=== PATIENT | male | born 1970 | race Caucasian/White ===

== ENCOUNTER 2018-06-23 13:08 | Emergency (ER) | payer MEDICAID ==
[2018-06-23 13:30] VITALS: BP 162/124
--- NOTE | 2018-06-23 14:06 | EDM.PDOC ---
ED HPI GENERAL MEDICAL PROBLEM - General Chief Complaint: Cardiovascular Problem Stated Complaint: HIGH BP Time Seen by Provider: 06/23/18 13:20 Source of Information: Reports: Patient, RN Notes Reviewed History Limitations: Reports: No Limitations - History of Present Illness INITIAL COMMENTS - FREE TEXT/NARRATIVE: Patient is a 47-year-old male who presents to the ED today for the evaluation of elevated blood pressure. He states this is a chronic issue for him and has been going on for around 2 years now. He states he does not necessarily have a primary care doc is being seen and taken care of by providers in the [facility]. He states he was evaluated there yesterday for a wheeze and cough and was told he had bronchitis so they gave him an albuterol inhaler and a prescription for doxycycline as they thought maybe he had bronchitis. His blood pressure at the clinic was 161/115 yesterday. At time of triage is 162/ 124. He states that he normally feels better with a slightly elevated blood pressure however he notes that the diastolic is normally around the low 100s nothing usually over 110. This makes him feel the best without any fatigue. He takes metoprolol tartrate 25 mg twice a day for blood pressure. He states that he had been taking topiramate 50 mg twice a day for headaches, but has stopped taking these due to the rebound headaches that he gets from this medication. He states that his blood pressures at home have been in the 140 over 100s. He does take his blood pressure at home with an automated cuff. He states that his headache is mainly in his temples and then radiates to the back of his head. He did not take any medications for this headache as he was told to not take any [id number] medications by the providers in the [facility]. He also notes a history of strokes one at age 29, age 38, and age 46 with multiple neuro deficits related to these including blurred vision/double vision, left-sided versus right sided deficits. He states that he is a 5-6 cigarette smoker per day for multiple years. He states that he has had a cough with no sputum production, shortness of breath, headache, and elevated blood pressure but denies any chest pain, nausea/vomiting/diarrhea, worsening vision changes. He also states that he has had increased stress at home as he lives with his daughter and her boyfriend and the situation is stressful for him. Headache Pain Score (Numeric/FACES): 6 - Related Data Allergies Allergy/AdvReac Type Severity Reaction Status Date / Time Penicillins Allergy Rash Verified 12/21/15 14:17 Home Meds: Home Meds Albuterol Sulfate [Albuterol Sulfate Hfa] 8.5 gm IH Q4H PRN 06/23/18 [History] Amitriptyline [Elavil] 10 mg PO BEDTIME #30 tab 06/23/18 [Rx] Doxycycline [Vibramycin] 100 mg PO BID 06/23/18 [History] Metoprolol Tartrate 25 mg PO BID 06/23/18 [History] Simvastatin [Zocor] 40 mg PO BEDTIME 06/23/18 [History] hydroCHLOROthiazide [Hydrochlorothiazide] 25 mg PO DAILY #30 tab 06/23/18 [Rx] Past Medical History HEENT History: Reports: Allergic Rhinitis Other HEENT History: 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 Cardiovascular History: Reports: High Cholesterol, Hypertension Respiratory History: Reports: Sleep Apnea Gastrointestinal History: Reports: Hiatal Hernia Other Gastrointestinal History: currently has umbilical hernia. Neurological History: Reports: CVA Other Neuro History: x4 concussion, 2 strokes Hematologic History: Reports: Bleeding Disorder - Infectious Disease History Infectious Disease History: Reports: Chicken Pox - Past Surgical History GI Surgical History: Reports: Hernia, Inguinal Male Surgical History: Reports: Vasectomy Dermatological Surgical History: Reports: None Social & Family History - Tobacco Use Smoking Status *Q: Current Every Day Smoker Years of Tobacco use: 22 Packs/Tins Daily: 1 - Caffeine Use Caffeine Use: Reports: Coffee - Recreational Drug Use Recreational Drug Use: Yes Drug Use in Last 12 Months: Yes Recreational Drug Type: Reports: Marijuana/Hashish Recreational Drug Use Frequency: Daily ED ROS GENERAL - Review of Systems Review Of Systems: See Below Constitutional: Denies: Fever, Chills HEENT: Reports: No Symptoms Respiratory: Reports: Shortness of Breath, Cough Cardiovascular: Reports: Blood Pressure Problem. Denies: Chest Pain, Edema, Lightheadedness Endocrine: Reports: No Symptoms GI/Abdominal: Reports: No Symptoms : Reports: No Symptoms Musculoskeletal: Reports: No Symptoms Skin: Reports: No Symptoms Neurological: Reports: No Symptoms Psychiatric: Reports: No Symptoms Hematologic/Lymphatic: Reports: No Symptoms Immunologic: Reports: No Symptoms ED EXAM, GENERAL - Physical Exam Exam: See Below Exam Limited By: No Limitations General Appearance: Alert, WD/WN, No Apparent Distress Eye Exam: Bilateral Eye: EOMI, Normal Inspection, PERRL Ears: Normal External Exam Nose: Normal Inspection, Normal Mucosa, No Blood Throat/Mouth: Normal Inspection, Normal Lips, Normal Teeth, Normal Oropharynx, Normal Voice, No Airway Compromise Head: Atraumatic, Normocephalic Neck: Normal Inspection Respiratory/Chest: No Respiratory Distress, Lungs Clear, Normal Breath Sounds, No Accessory Muscle Use, Chest Non-Tender Cardiovascular: Normal Peripheral Pulses, Regular Rate, Rhythm, No Edema, No Murmur GI/Abdominal: Normal Bowel Sounds, Soft, Non-Tender, No Distention Back Exam: Normal Inspection, Full Range of Motion Extremities: Normal Inspection, Normal Range of Motion, Non-Tender, No Pedal Edema, Normal Capillary Refill Neurological: Alert, Oriented, Normal Cognition, No Motor/Sensory Deficits Psychiatric: Normal Affect, Normal Mood, Anxious Skin Exam: Warm, Dry, Intact, Normal Color, No Rash Course - Vital Signs Last Recorded V/S: Last Vital Signs Temp 98 F 06/23/18 13:23 Pulse 82 06/23/18 13:23 Resp 18 06/23/18 13:23 BP 162/124 H 06/23/18 13:23 Pulse Ox 100 06/23/18 13:23 - Orders/Labs/Meds Meds: Medications Discontinued Medications Generic Name Dose Route Start Last Admin Trade Name Jessica PRN Reason Stop Dose Admin Lorazepam 0.5 mg 06/23/18 14:07 06/23/18 14:37 Ativan PO 06/23/18 14:08 0.5 mg ONETIME ONE Administration - Re-Assessments/Exams Free Text/Narrative Re-Assessment/Exam: 06/23/18 14:22 Patient presents to the ED for elevated blood pressure. It is apparent that he is somewhat anxious at time of exam. His blood pressure was in the 150s systolically but when he was interviewed his blood pressure went up to the 180s systolically. I did order 0.5 mg Ativan to see if this doesn't help calm his nerves. In interviewing him he has not having any acute symptoms related to increased blood pressure however I feel that his increased blood pressure is related to the headaches that he has been having. I will suggest that he take his metoprolol tartrate 25 mg by mouth in the morning and 37.5 mg by mouth at night, however I feel he would benefit from a switch to metoprolol succinate as this is longer acting and that he should take this 25 mg twice a day. I will suggest that he stop taking the Topamax as this seems to provide him with more rebound headaches and it does provide him benefit from headache relief. We'll recommend that he try amitriptyline 10 mg at night for headache prophylaxis. Will also recommend that he stop taking the doxycycline as it is not needed for bronchitis. If he wishes to stay on the metoprolol tartrate I will recommend that he takes 25 mg hydrochlorothiazide by mouth once daily in combination with this. Departure - Departure Time of Disposition: 15:20 Disposition: Home, Self-Care 01 Condition: Fair Clinical Impression: High blood pressure Qualifiers: Hypertension type: essential hypertension Qualified Code(s): I10 - Essential ( primary) hypertension Prescriptions: Amitriptyline [Elavil] 10 mg PO BEDTIME #30 tab hydroCHLOROthiazide [Hydrochlorothiazide] 25 mg PO DAILY #30 tab Instructions: How to Take Your Blood Pressure, [id number], Preventing Hypertension Referrals: PCP,None [Primary Care Provider] - Forms: ED Department Discharge Additional Instructions: You have been evaluated in the ED today for your high blood pressure. Please stop taking the Topamax as this is likely causing rebound headaches for you. Please take your metoprolol tartrate one tablet in the morning and 1-1/2 tablets at night. This is a dosage change in your current medication. Please take one tab hydrochlorothiazide in the morning, this is an added blood pressure medication. If you feel this drops your blood pressure too low you may take one half tablet versus one whole tablet. Please give this 3-5 days so that your body may adjust to this. Please take one tablet (10mg) amitriptyline at bedtime. This is for migraine prophylaxis and should help promote better sleep for you. These medications have been sent to [facility] as per your request. Please return to the ER if your symptoms change or worsen.
[2018-06-23] MEDS ORDERED: LORazepam 0.5 MG Tab PO ONE (14:07)
== END 2018-06-23 16:02 | disposition home or self-care (01) ==
LOC: JD.ED 13:08
DX: I10 Essential (primary) hypertension (principal); E78.00 Pure hypercholesterolemia, unspecified; Z86.73 Personal history of transient ischemic attack (TIA), and cerebral infarction without residual deficits; Z79.899 Other long term (current) drug therapy; Z88.0 Allergy status to penicillin
CPT/HCPCS: 99283; A9270

== ENCOUNTER → 2018-11-26 | Day surgery (SDC) | payer MEDICAID ==
[~2018-11-26] MED LIST: Acetaminophen/HYDROcodone 325-5 MG Tab PO SCH; Albuterol 0.083% 2.5 MG/3 ML Neb Soln NEB PRN; Bupivacaine 0.25% 10 ML SDV ONE; Dexamethasone 4 MG/ML 5 ML MDV ONE; EPINEPHrine 1 MG/ML 30 ML MDV ONE; HYDROmorphone 0.5 MG/0.5 ML Syringe IVPUSH PRN; HYDROmorphone 0.5 MG/0.5 ML Syringe ONE; Ketorolac 30 MG/ML SDV ONE; Lactated Ringers 1,000 ML IV SCH; Lactated Ringers 1,000 ML ONE; Lidocaine 1% 6 ML ONE; Lidocaine 1%/Sod Bicarbonate in NS 8.4% 1 ML Syringe IDERM PRN; Midazolam 1 MG/ML 2 ML SDV ONE; Ondansetron 4 MG/2 ML SDV IVPUSH PRN; Ondansetron 4 MG/2 ML SDV ONE; Phenylephrine 1 MG in Sodium Chloride 0.9% 10 ML IV SCH; Phenylephrine/Normal Saline 100 MCG/ML 10 ML Syringe ONE; Propofol 200 MG/20 ML SDV ONE; Sodium Chloride 0.9% 10 ML Syringe FLUSH PRN; ceFAZolin 1 GM Vial ONE; diphenhydrAMINE 50 MG/ML SDV IVPUSH PRN; ePHEDrine 50 MG/ML SDV IVPUSH PRN; ePHEDrine/Normal Saline 25 MG/5 ML Syringe ONE; fentaNYL 100 MCG/2 ML SDV IVPUSH PRN; fentaNYL 250 MCG/5 ML SDV ONE
--- NOTE | 2018-11-26 08:03 | PCM.PREANE ---
Preanesthetic Assessment - Anesthesia/Transfusion/Family Hx Anesthesia History: Prior Anesthesia Without Reaction Family History of Anesthesia Reaction: No Transfusion History: No Prior Transfusion(s) Intubation History: Unknown - Review of Systems General: No Symptoms Pulmonary: No Symptoms (Smoker:1/2 PPD times 30 years/ marijuana inhaled BID, history of ETOH abuse, AJ, panlobular emphysema) Cardiovascular: No Symptoms (HTN, History of PFO-repaired in 2001), Palpitations Gastrointestinal: No Symptoms (GERD) Neurological: No Symptoms (Stroke/TIA: 2000, 2009: residual weakness in bilateral extremities, balance disorder, sensorineural hearing loss bilaterally , vision/memory loss), Dizziness, Headache (migraines), Numbness (right side on occasion) Other: Reports: Depression, Anxiety - Physical Assessment NPO Status Date: 11/25/18 NPO Status Time: 23:00 Height: 1.8 m Weight: 87 kg ASA Class: 3 Mental Status: Alert & Oriented x3 Airway Class: Mallampati = 2 Dentition: Reports: Normal Dentition, Caries Thyro-Mental Finger Breadths: 3 Mouth Opening Finger Breadths: 3 ROM/Head Extension: Full Lungs: Clear to Auscultation, Normal Respiratory Effort Cardiovascular: Regular Rate, Regular Rhythm, No Murmurs - Lab Values: Laboratory Last Values MRSA (PCR) Negative 11/17/18 16:33 - Imaging/EKG Impressions: EKG: SR= rate=60 - Allergies Allergies/Adverse Reactions: Allergies Allergy/AdvReac Type Severity Reaction Status Date / Time Penicillins Allergy Rash Verified 11/25/18 13:14 - Anesthesia Plan Pre-Op Medication Ordered: Beta Pura Beta Pura: Metoprolol Med Last Dose Date: 11/26/18 Med Last Dose Time: 08:00 - Acknowledgements Anesthesia Type Planned: General Anesthesia Pt an Appropriate Candidate for the Planned Anesthesia: Yes Alternatives and Risks of Anesthesia Discussed w Pt/Guardian: Yes Pt/Guardian Understands and Agrees with Anesthesia Plan: Yes PreAnesthesia Questionnaire HEENT History: Reports: Allergic Rhinitis, Hard of Hearing Other HEENT History: 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, tinnitis, wears glasses Cardiovascular History: Reports: High Cholesterol, Hypertension Respiratory History: Reports: Sleep Apnea Other Respiratory History: panlobular emphysema Gastrointestinal History: Reports: Hiatal Hernia Other Gastrointestinal History: currently has umbilical hernia. Genitourinary History: Reports: None BRASS BUFFER History: Reports: None Other Musculoskeletal History: right knee pain Neurological History: Reports: CVA Other Neuro History: x4 concussion, 2 strokes Psychiatric History: Reports: None Endocrine/Metabolic History: Reports: None Hematologic History: Reports: Bleeding Disorder Immunologic History: Reports: None Oncologic (Cancer) History: Reports: None Dermatologic History: Reports: None - Infectious Disease History Infectious Disease History: Reports: Chicken Pox - Past Surgical History Head Surgeries/Procedures: Reports: None HEENT Surgical History: Reports: None Cardiovascular Surgical History: Reports: Other (See Below) Other Cardiovascular Surgeries/Procedures: foramen ovale surgical repair Respiratory Surgical History: Reports: None GI Surgical History: Reports: Hernia, Inguinal Female Surgical History: Reports: None Male Surgical History: Reports: Vasectomy Endocrine Surgical History: Reports: None Neurological Surgical History: Reports: None Oncologic Surgical History: Reports: None Dermatological Surgical History: Reports: None - SUBSTANCE USE Smoking Status *Q: Current Every Day Smoker Recreational Drug Use History: Yes Recreational Drug Type: Reports: Marijuana/Hashish - HOME MEDS Home Medications: Home Meds Amitriptyline [Elavil] 10 mg PO BEDTIME #30 tab 06/23/18 [Rx] Metoprolol Tartrate 25 mg PO QAM 06/23/18 [History] Simvastatin [Zocor] 40 mg PO BEDTIME 06/23/18 [History] hydroCHLOROthiazide [Hydrochlorothiazide] 25 mg PO DAILY #30 tab 06/23/18 [Rx] Metoprolol Tartrate 50 mg PO QPM 11/25/18 [History] Acetaminophen/HYDROcodone [[place] 325-5 MG] 1 - 2 tab PO Q6H PRN #20 tablet 11/26 [Rx] Aspirin 325 mg PO BID #84 tab 11/26/18 [Rx] - CURRENT (IN HOUSE) MEDS Current Meds: Current Medications Lactated Ringer's (Ringers, Lactated) 1,000 mls @ 125 mls/hr IV ASDIRECTED MICHAELA Lidocaine/Sodium Bicarbonate (Buffered Lidocaine 1% In Ns 8.4%) 0.25 ml IDERM ONETIME PRN PRN Reason: Prior to IV Start Sodium Chloride (Saline Flush) 10 ml FLUSH ASDIRECTED PRN PRN Reason: Keep Vein Open Discontinued Medications Cefazolin Sodium (Ancef) Confirm Administered Dose 2 gm .ROUTE .STK-MED ONE Stop: 11/26/18 07:34 Dexamethasone (Dexamethasone) Confirm Administered Dose 20 mg .ROUTE .STK-MED ONE Stop: 11/26/18 07:34 Fentanyl (Sublimaze) Confirm Administered Dose 250 mcg .ROUTE .STK-MED ONE Stop: 11/26/18 07:35 Hydromorphone HCl (Dilaudid) Confirm Administered Dose 0.5 mg .ROUTE .STK-MED ONE Stop: 11/26/18 07:34 Lidocaine HCl (Xylocaine-Mpf 1%) Confirm Administered Dose 6 mls @ as directed .ROUTE .STK-MED ONE Stop: 11/26/18 07:34 Lactated Ringer's (Ringers, Lactated) Confirm Administered Dose 1,000 mls @ as directed .ROUTE .STK-MED ONE Stop: 11/26/18 07:34 Ketorolac Tromethamine (Toradol) Confirm Administered Dose 30 mg .ROUTE .STK- MED ONE Stop: 11/26/18 07:34 Midazolam HCl (Versed 1 Mg/Ml) Confirm Administered Dose 2 mg .ROUTE .STK-MED ONE Stop: 11/26/18 07:35 Ondansetron HCl (Zofran) Confirm Administered Dose 4 mg .ROUTE .STK-MED ONE Stop: 11/26/18 07:34 Propofol (Diprivan 20 Ml) Confirm Administered Dose 200 mg .ROUTE .STK-MED ONE Stop: 11/26/18 07:34
--- NOTE | 2018-11-26 13:44 | PCM.POSTAN ---
POST ANESTHESIA ASSESSMENT - MENTAL STATUS Mental Status: Alert - VITAL SIGNS Vital Signs: Last Vital Signs Temp 97.8f 11/26/18 13:35 Pulse 77 11/26/18 13:35 Resp 23 11/26/18 13:35 BP 110/83 11/26/18 13:35 Pulse Ox 100 11/26/18 13:35 - RESPIRATORY Respiratory Status: Respiratory Rate WNL, Airway Patent, O2 Saturation Stable, Supplemental Oxygen - CARDIOVASCULAR CV Status: Pulse Rate WNL, Blood Pressure Stable - GASTROINTESTINAL GI Status: No Symptoms - POST OP HYDRATION Hydration Status: Adequate & Stable
--- NOTE | 2018-11-26 15:00 | PCM48HPAN ---
Post Anesthesia Note - EVALUATION WITHIN 48HRS OF ANESTHETIC Vital Signs in Normal Range: Yes Patient Participated in Evaluation: Yes Respiratory Function Stable: Yes Airway Patent: Yes Cardiovascular Function Stable: Yes Hydration Status Stable: Yes Pain Control Satisfactory: Yes Nausea and Vomiting Control Satisfactory: Yes Mental Status Recovered: Yes Vital Signs: Last Vital Signs Temp 36.4 C 11/26/18 14:25 Pulse 85 11/26/18 14:25 Resp 16 11/26/18 14:25 BP 104/85 11/26/18 14:25 Pulse Ox 100 11/26/18 14:25
[2018-11-26 15:26] VITALS: BP 131/105
--- NOTE | 2018-12-01 09:17 | PCM.OPNOTE ---
- General Post-Op/Procedure Note Date of Surgery/Procedure: 11/26/18 Operative Procedure(s): right knee video arthrscopy with plica and fat pad resection with chondroplasty of the trochlea Pre Op Diagnosis: right knee pain with possible medial meniscus tear versus chondromalacia Post-Op Diagnosis: right knee fat pad impingement with plica and grade 2 chondromalacia of the trochlea Anesthesia Technique: General LMA, Local Primary Surgeon: Piero Gallegos Anesthesia Provider: Elenita Davidson Remote Sensing Specialist: Betty Gomez in mLs: 5 Complications: None Condition: Good
--- NOTE | 2018-12-01 09:47 | OR ---
DATE OF OPERATION: 11/26/2018 SURGEON: Piero Gallegos MD OPERATION PERFORMED: Right knee video arthroscopy with plica and fat pad resection with chondroplasty of the trochlea. PREOPERATIVE DIAGNOSIS: Right knee pain with possible medial meniscus tear versus chondromalacia. POSTOPERATIVE DIAGNOSIS: Right knee fat pad impingement with plica and grade 2 chondromalacia of the trochlea. ANESTHESIA: General LMA with local. ANESTHESIA PROVIDER: Elenita Davidson CRNA. KITCHEN HELP HANDYMAN: Betty Gomez PA-C. ESTIMATED BLOOD LOSS: Less than 5 mL. COMPLICATIONS: None. CONDITION: Stable. DESCRIPTION OF PROCEDURE: The patient was identified in the preoperative holding area. Proper site was marked and identified by surgeon. The patient was taken back to the operating theater where after adequate anesthesia, the patient's left lower extremity was placed in a well leg james. Right lower extremity was placed in a nonsterile tourniquet and a C-clamp james. Foot of the bed was then lowered. Right lower extremity was then sterilely prepped and draped in the usual sterile fashion. OR time-out was performed. The patient received 2 g of IV Ancef. Right lower extremity was exsanguinated. Tourniquet was insufflated to 250 mmHg. Standard anterior lateral portal incision was made and scope trocar was introduced to the knee. At this time, the patella showed no chondromalacia. The trochlea did show a small area of grade 2 chondromalacia with fraying. The fat pad was noted to be significantly hypertrophied with significant erythema. Attention was turned to medial compartment. Anteromedial portal was created with the use of a spinal needle. Medial compartment showed no signs of chondromalacia. There was no medial meniscus tear or any signs of erythema. The ACL was intact in the notch. Lateral compartment showed no signs of chondromalacia or lateral meniscus tear. At this time, a chondroplasty of the loose fragments in the trochlea were then undertaken back to a smooth border and then fat pad resection was done so that it would not impinge between the patella and the femoral trochlea. Once this was undertaken, excess saline was drained from the knee. 3- 0 nylon was used for closure of the skin. The patient had 0.25% Marcaine injected locally and then had a sterile soft dressing applied. MMODAL /[id number]
== END | disposition home or self-care (01) ==
LOC: JD.SDS 09:23
PROVIDERS: ATTEND Orthopaedic Surgery
DX: M25.861 Other specified joint disorders, right knee (principal); M94.261 Chondromalacia, right knee; M67.51 Plica syndrome, right knee; I11.9 Hypertensive heart disease without heart failure; E78.00 Pure hypercholesterolemia, unspecified; J43.1 Panlobular emphysema; F17.210 Nicotine dependence, cigarettes, uncomplicated; G47.33 Obstructive sleep apnea (adult) (pediatric); G45.0 Vertebro-basilar artery syndrome; Z88.0 Allergy status to penicillin; Z79.82 Long term (current) use of aspirin; Z79.899 Other long term (current) drug therapy
CPT/HCPCS: 29875; 36415; 80053; 87641; A9270; J0171; J0690; J1100; J1170; J2001; J2250; J2370; J2405; J2704; J3010; J3490; J7050; J7120; 01400; J1885

== ENCOUNTER → 2019-01-28 | Day surgery (SDC) | payer MEDICAID ==
[~2019-01-28] MED LIST changes: +Acetaminophen/HYDROcodone 325-5 MG Tab PO PRN; -Acetaminophen/HYDROcodone 325-5 MG Tab PO SCH; -Albuterol 0.083% 2.5 MG/3 ML Neb Soln NEB PRN; -EPINEPHrine 1 MG/ML 30 ML MDV ONE; +EPINEPHrine 1 MG/ML 30 ML MDV SCH; -Ketorolac 30 MG/ML SDV ONE; -Phenylephrine 1 MG in Sodium Chloride 0.9% 10 ML IV SCH; -Phenylephrine/Normal Saline 100 MCG/ML 10 ML Syringe ONE; -ePHEDrine 50 MG/ML SDV IVPUSH PRN; +fentaNYL 100 MCG/2 ML SDV ONE; -fentaNYL 250 MCG/5 ML SDV ONE
--- NOTE | 2019-01-28 07:11 | PCM.PREANE ---
Preanesthetic Assessment - Procedure Proposed Procedure: fleft knee videa arthroscopy, partial medical meniscetomy with possible chondroplasty - Anesthesia/Transfusion/Family Hx Anesthesia History: No Prior Anesthesia Family History of Anesthesia Reaction: No Transfusion History: No Prior Transfusion(s) Type of Transfusion Reactions: Reports: Unknown Intubation History: Unknown - Review of Systems General: No Symptoms Pulmonary: No Symptoms Cardiovascular: No Symptoms Gastrointestinal: No Symptoms Neurological: Headache (chronic headaches ), Other (weakness bilaterally from history of strokes may 25) Other: Reports: None - Physical Assessment NPO Status Date: 01/28/19 NPO Status Time: 22:00 Height: 1.83 m Weight: 88 kg ASA Class: 3 Mental Status: Alert & Oriented x3 Thyro-Mental Finger Breadths: 3 Mouth Opening Finger Breadths: 4 ROM/Head Extension: Full Lungs: Clear to Auscultation, Normal Respiratory Effort Cardiovascular: Regular Rate, Regular Rhythm - Lab Values: Laboratory Last Values MRSA (PCR) Negative 01/27/19 15:20 - Allergies Allergies/Adverse Reactions: Allergies Allergy/AdvReac Type Severity Reaction Status Date / Time Penicillins Allergy Rash Verified 11/26/18 10:06 NSAIDS (Non-Steroidal AdvReac Headache Verified 01/27/19 08:55 Anti-Inflamma - Blood Blood Available: No - Anesthesia Plan Beta Pura: Metoprolol Med Last Dose Date: 01/28/19 Med Last Dose Time: 05:20 - Acknowledgements Anesthesia Type Planned: General Anesthesia Pt an Appropriate Candidate for the Planned Anesthesia: Yes Alternatives and Risks of Anesthesia Discussed w Pt/Guardian: Yes Pt/Guardian Understands and Agrees with Anesthesia Plan: Yes PreAnesthesia Questionnaire HEENT History: Reports: Allergic Rhinitis, Hard of Hearing Other HEENT History: 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, tinnitis, wears glasses Cardiovascular History: Reports: High Cholesterol, Hypertension Other Cardiovascular History: repair of hole in heart, heart disease Respiratory History: Reports: Sleep Apnea Other Respiratory History: patient is a smoker. denies cough or sob. Gastrointestinal History: Reports: Hiatal Hernia Other Gastrointestinal History: currently has umbilical hernia. Genitourinary History: Reports: None ADMINISTRATIVE ASSISTANT FRONT DESK History: Reports: None Musculoskeletal History: Reports: Arthritis Other Musculoskeletal History: 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 Neurological History: Reports: CVA, Headaches, Chronic Other Neuro History: cva x 3 with bilateral weakness Psychiatric History: Reports: None Endocrine/Metabolic History: Reports: None Hematologic History: Reports: Other (See Below) (on baby aspirin) Immunologic History: Reports: None Oncologic (Cancer) History: Reports: None Dermatologic History: Reports: None - Infectious Disease History Infectious Disease History: Reports: Chicken Pox - Past Surgical History Musculoskeletal Surgical History: Reports: Arthroscopic Procedure - SUBSTANCE USE Smoking Status *Q: Current Every Day Smoker Tobacco Use Within Last Twelve Months: Cigarettes Days Per Week of Alcohol Use: 7 Recreational Drug Type: Reports: Other (see below) (smokes [employer] - last yesterday morning) - HOME MEDS Home Medications: Home Meds Amitriptyline [Elavil] 10 mg PO BEDTIME #30 tab 06/23/18 [Rx] Metoprolol Tartrate 25 mg PO QAM 06/23/18 [History] Simvastatin [Zocor] 40 mg PO BEDTIME 06/23/18 [History] hydroCHLOROthiazide [Hydrochlorothiazide] 25 mg PO DAILY #30 tab 06/23/18 [Rx] Metoprolol Tartrate 50 mg PO QPM 11/25/18 [History] Acetaminophen/HYDROcodone [[place] 325-5 MG] 1 - 2 tab PO Q6H PRN #20 tablet 01/28 [Rx] Aspirin 325 mg PO BID #84 tab 01/28/19 [Rx] - CURRENT (IN HOUSE) MEDS Current Meds: Current Medications Epinephrine HCl (Adrenalin) 3 mg .XX ONETIME MICHAELA Stop: 01/28/19 12:00 Lactated Ringer's (Ringers, Lactated) 1,000 mls @ 125 mls/hr IV ASDIRECTED MICHAELA Stop: 01/28/19 23:00 Lidocaine/Sodium Bicarbonate (Buffered Lidocaine 1% In Ns 8.4%) 0.25 ml IDERM ONETIME PRN PRN Reason: Prior to IV Start Stop: 01/28/19 18:00 Sodium Chloride (Saline Flush) 10 ml FLUSH ASDIRECTED PRN PRN Reason: Keep Vein Open Stop: 01/28/19 18:00 Discontinued Medications Bupivacaine HCl (Sensorcaine-Mpf 0.25%) Confirm Administered Dose 30 ml .ROUTE .STK-MED ONE Stop: 01/28/19 06:57 Fentanyl (Sublimaze) Confirm Administered Dose 100 mcg .ROUTE .STK-MED ONE Stop: 01/28/19 06:58 Lidocaine HCl (Xylocaine-Mpf 1%) Confirm Administered Dose 6 mls @ as directed .ROUTE .STK-MED ONE Stop: 01/28/19 06:58 Midazolam HCl (Versed 1 Mg/Ml) Confirm Administered Dose 2 mg .ROUTE .STK-MED ONE Stop: 01/28/19 06:58 Ondansetron HCl (Zofran) Confirm Administered Dose 4 mg .ROUTE .STK-MED ONE Stop: 01/28/19 06:58 Propofol (Diprivan 20 Ml) Confirm Administered Dose 200 mg .ROUTE .STK-MED ONE Stop: 01/28/19 06:57
--- NOTE | 2019-01-28 08:28 | PCM.POSTAN ---
POST ANESTHESIA ASSESSMENT - MENTAL STATUS Mental Status: Other (drowsy ) - VITAL SIGNS Vital Signs: Last Vital Signs Temp 36.5 C 01/28/19 07:00 Pulse 75 01/28/19 07:00 Resp 16 01/28/19 07:00 BP 131/98 H 01/28/19 07:00 Pulse Ox 97 01/28/19 07:00 - RESPIRATORY Respiratory Status: Respiratory Rate WNL, Airway Patent, O2 Saturation Stable, Supplemental Oxygen - CARDIOVASCULAR CV Status: Pulse Rate WNL, Blood Pressure Stable - GASTROINTESTINAL GI Status: No Symptoms - PAIN Pain Score: 0 - POST OP HYDRATION Hydration Status: Adequate & Stable
--- NOTE | 2019-01-28 09:05 | PCM48HPAN ---
Post Anesthesia Note - EVALUATION WITHIN 48HRS OF ANESTHETIC Vital Signs in Normal Range: Yes Patient Participated in Evaluation: Yes Respiratory Function Stable: Yes Airway Patent: Yes Cardiovascular Function Stable: Yes Hydration Status Stable: Yes Pain Control Satisfactory: Yes Nausea and Vomiting Control Satisfactory: Yes Mental Status Recovered: Yes Vital Signs: Last Vital Signs Temp 97.7 F 01/28/19 08:45 Pulse 74 01/28/19 08:45 Resp 15 01/28/19 08:45 BP 114/87 01/28/19 08:45 Pulse Ox 96 01/28/19 08:45
[2019-01-28 09:06] VITALS: BP 123/97; PULSE 70
--- NOTE | 2019-02-02 16:15 | PCM.OPNOTE ---
- General Post-Op/Procedure Note Date of Surgery/Procedure: 01/28/19 Operative Procedure(s): left knee video arthroscopy with partial medial meniscecotmy Pre Op Diagnosis: left knee medial meniscus tear Post-Op Diagnosis: same with chondromalacia Anesthesia Technique: General LMA, Local Primary Surgeon: Piero Gallegos Anesthesia Provider: Faye Boudreaux Horse Doctor: Betty Gomez in mLs: 5 Complications: None Condition: Good
--- NOTE | 2019-02-02 17:16 | OR ---
DATE OF OPERATION: 01/28/2019 SURGEON: Piero Gallegos MD OPERATION PERFORMED: Left knee video arthroscopy with partial medial meniscectomy. PREOPERATIVE DIAGNOSIS: Left knee medial meniscus tear. POSTOPERATIVE DIAGNOSIS: Left knee medial meniscus tear with chondromalacia. ANESTHESIA: General LMA with local. ANESTHESIA PROVIDER: Faye Boudreaux. PRINT ROOM WORKER: Betty Gomez PA-C ESTIMATED BLOOD LOSS: Less than 5 mL. COMPLICATIONS: None. CONDITION: Stable. DESCRIPTION OF PROCEDURE: The patient was identified in the preop holding area. Proper site was marked and identified by the surgeon. The patient was taken back to the operating theater where after adequate anesthesia the patient's left lower extremity had a nonsterile tourniquet applied and was placed in a C-clamp james. Right lower extremity was placed in a well-leg james. Foot of the bed was then lowered. Left lower extremity was then sterilely prepped and draped in the usual sterile fashion. OR time-out was performed. The patient received 2 g IV Ancef. The left lower extremity was exsanguinated. Tourniquet was insufflated to 250 mmHg. Standard anterolateral portal incision was made and the scope trocar was introduced. The patient was noted to have slight chondromalacia noted at the patellofemoral joint. No loose or foreign bodies in the medial and lateral gutter. The patient did have some significant overgrowth of the medial synovium as well as a small plica. Attention was turned to the medial compartment. Anteromedial portal was created and the probe was introduced. The patient was noted to have a posterior 3rd medial meniscus tear. At this time, a partial medial meniscectomy was performed back to a stable rim taking roughly only 10% to 15% of the posterior horn of the meniscus. At this time, it was found to be stable with the remaining portion. ACL was intact in the notch. The patient only had grade 1 chondromalacia of the medial compartment. Lateral compartment showed no lateral meniscus tear, no compartmental changes. At this time, a partial synovectomy of the medial fat pad as well as plica was done. Excess saline was drained from the knee. A 3-0 nylon suture was used for closure of the skin. The patient had a sterile soft dressing applied and was sent to PACU in stable condition. MMODAL /[id number]
== END | disposition home or self-care (01) ==
LOC: JD.SDS 06:47
PROVIDERS: ATTEND Orthopaedic Surgery
DX: S83.242A Other tear of medial meniscus, current injury, left knee, initial encounter (principal); M22.42 Chondromalacia patellae, left knee; M19.90 Unspecified osteoarthritis, unspecified site; I10 Essential (primary) hypertension; F17.210 Nicotine dependence, cigarettes, uncomplicated; Z79.899 Other long term (current) drug therapy; Z79.82 Long term (current) use of aspirin; Z88.0 Allergy status to penicillin; Z88.6 Allergy status to analgesic agent
CPT/HCPCS: 29881; 87641; A9270; J0171; J0690; J1100; J1170; J2001; J2250; J2405; J2704; J3010; J3490; J7050; J7120; 01400

== ENCOUNTER 2020-02-21 09:49 | Day surgery (SDC) | payer MEDICARE, MEDICAID ==
[~2020-02-21 09:49] MED LIST changes: -Acetaminophen/HYDROcodone 325-5 MG Tab PO PRN; +Albuterol 0.083% 2.5 MG/3 ML Neb Soln NEB PRN; -Bupivacaine 0.25% 10 ML SDV ONE; -Dexamethasone 4 MG/ML 5 ML MDV ONE; -EPINEPHrine 1 MG/ML 30 ML MDV SCH; -HYDROmorphone 0.5 MG/0.5 ML Syringe IVPUSH PRN; -HYDROmorphone 0.5 MG/0.5 ML Syringe ONE; -Lactated Ringers 1,000 ML ONE; -Lidocaine 1% 6 ML ONE; -Midazolam 1 MG/ML 2 ML SDV ONE; -Ondansetron 4 MG/2 ML SDV IVPUSH PRN; -Ondansetron 4 MG/2 ML SDV ONE; -Propofol 200 MG/20 ML SDV ONE; -ceFAZolin 1 GM Vial ONE; -diphenhydrAMINE 50 MG/ML SDV IVPUSH PRN; -ePHEDrine/Normal Saline 25 MG/5 ML Syringe ONE; -fentaNYL 100 MCG/2 ML SDV IVPUSH PRN; -fentaNYL 100 MCG/2 ML SDV ONE
--- NOTE | 2020-02-21 10:27 | PCM.PREANE ---
Preanesthetic Assessment - Procedure Proposed Procedure: open umbilical hernia repair with mesh - Anesthesia/Transfusion/Family Hx Anesthesia History: Prior Anesthesia Without Reaction Family History of Anesthesia Reaction: No Transfusion History: No Prior Transfusion(s) Type of Transfusion Reactions: Reports: Unknown Intubation History: Unknown - Review of Systems General: No Symptoms Pulmonary: No Symptoms Cardiovascular: No Symptoms Gastrointestinal: Vomiting Neurological: Headache, Weakness, Other (3 strokes in past) Other: Reports: Diabetes, Anxiety - Physical Assessment NPO Status Date: 02/20/20 NPO Status Time: 20:00 Vital Signs: 113/89 69 98% 97.7 16 Height: 6 ft Weight: 87.997 kg ASA Class: 3 Mental Status: Alert & Oriented x3 Airway Class: Mallampati = 1 Dentition: Reports: Broken Tooth/Teeth, Missing Tooth/Teeth, Caries (black front tooth) Thyro-Mental Finger Breadths: 3 Mouth Opening Finger Breadths: 3 ROM/Head Extension: Full Lungs: Clear to Auscultation, Normal Respiratory Effort Cardiovascular: Regular Rate, Regular Rhythm - Allergies Allergies/Adverse Reactions: Allergies Allergy/AdvReac Type Severity Reaction Status Date / Time Penicillins Allergy Rash Verified 02/17/20 18:44 - Blood Blood Available: No - Anesthesia Plan Beta Pura: Metoprolol Med Last Dose Date: 02/21/20 Med Last Dose Time: 07:30 - Acknowledgements Anesthesia Type Planned: MAC Pt an Appropriate Candidate for the Planned Anesthesia: Yes Alternatives and Risks of Anesthesia Discussed w Pt/Guardian: Yes Pt/Guardian Understands and Agrees with Anesthesia Plan: Yes PreAnesthesia Questionnaire HEENT History: Reports: Allergic Rhinitis, Cataract, Hard of Hearing Other HEENT History: 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, tinnitis, wears glasses Cardiovascular History: Reports: High Cholesterol, Hypertension Other Cardiovascular History: repair of hole in heart, heart disease, vertebrobasilar artery syndrome, PFO with repair Respiratory History: Reports: COPD, Sleep Apnea Other Respiratory History: panlobular emphysema Gastrointestinal History: Reports: GERD, Hiatal Hernia Genitourinary History: Reports: None 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 Musculoskeletal History: Reports: Arthritis Other Musculoskeletal History: 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 Neurological History: Reports: CVA, Headaches, Chronic Other Neuro History: cephalgia Psychiatric History: Reports: Depression Endocrine/Metabolic History: Reports: None Hematologic History: Reports: None Immunologic History: Reports: None Oncologic (Cancer) History: Reports: None Dermatologic History: Reports: None - Infectious Disease History Infectious Disease History: Reports: Chicken Pox - Past Surgical History Head Surgeries/Procedures: Reports: None HEENT Surgical History: Reports: None Cardiovascular Surgical History: Reports: Other (See Below) Other Cardiovascular Surgeries/Procedures: foramen ovale surgical repair Respiratory Surgical History: Reports: None GI Surgical History: Reports: Hernia, Inguinal Female Surgical History: Reports: None Male Surgical History: Reports: Vasectomy Endocrine Surgical History: Reports: None Neurological Surgical History: Reports: None Musculoskeletal Surgical History: Reports: Arthroscopic Knee, Arthroscopic Procedure Oncologic Surgical History: Reports: None Dermatological Surgical History: Reports: None - SUBSTANCE USE Tobacco Use Status *Q: Current Every Day Tobacco User Tobacco Use Within Last Twelve Months: Cigarettes Second Hand Smoke Exposure: Yes Days Per Week of Alcohol Use: 1 Number of Drinks Per Day: 4 Total Drinks Per Week: 4 Recreational Drug Use History: Yes Recreational Drug Type: Reports: Marijuana/Hashish (daily marijuana) - HOME MEDS Home Medications: Home Meds Metoprolol Tartrate 25 mg PO QAM 06/23/18 [History] hydroCHLOROthiazide [Hydrochlorothiazide] 25 mg PO DAILY #30 tab 06/23/18 [Rx] Metoprolol Tartrate 50 mg PO QPM 11/25/18 [History] Albuterol Sulfate [Albuterol Sulfate Hfa] 1 puff INH Q4H PRN 02/17/20 [History] Amitriptyline [Elavil] 75 mg PO BEDTIME 02/17/20 [History] Aspirin 81 mg PO BID 02/17/20 [History] Clopidogrel Bisulfate [Plavix] 75 mg PO DAILY 02/17/20 [History] Hydrocodone/Acetaminophen [Jackson 5-325 Tablet] 1 tab PO Q4H PRN 02/17/20 [History] Pantoprazole Sodium [Protonix] 40 mg PO DAILY 02/17/20 [History] atorvaSTATin [Lipitor] 20 mg PO DAILY 02/17/20 [History] metFORMIN HCl [Metformin HCl] 1,000 mg PO BID 02/17/20 [History] - CURRENT (IN HOUSE) MEDS Current Meds: Current Medications Albuterol (Proventil Neb Soln) 2.5 mg NEB ONETIME PRN PRN Reason: COPD Stop: 02/21/20 18:00 Lactated Ringer's (Ringers, Lactated) 1,000 mls @ 125 mls/hr IV ASDIRECTED MICHAELA Stop: 02/21/20 23:00 Lidocaine/Sodium Bicarbonate (Buffered Lidocaine 1% In Ns 8.4%) 0.25 ml IDERM ONETIME PRN PRN Reason: Prior to IV Start Stop: 02/21/20 18:00 Sodium Chloride (Saline Flush) 10 ml FLUSH ASDIRECTED PRN PRN Reason: Keep Vein Open Stop: 02/21/20 18:00
[2020-02-21] MEDS ORDERED: Propofol 200 MG/20 ML SDV ONE ×3 (11:10→12:20)
[2020-02-21] MEDS ORDERED: Lidocaine 1% 4 ML ONE (11:10)
[2020-02-21] MEDS ORDERED: fentaNYL 100 MCG/2 ML SDV ONE ×2 (11:10→12:20)
[2020-02-21] MEDS ORDERED: Midazolam 1 MG/ML 2 ML SDV ONE (11:10)
[2020-02-21] MEDS: Lidocaine 1% with EPINEPHrine 1:100,000 20 ML MDV ONE ×2 (11:43→11:49)
[2020-02-21] MEDS ORDERED: Lactated Ringers 1,000 ML ONE (12:19)
[2020-02-21] MEDS ORDERED: Ondansetron 4 MG/2 ML SDV ONE (12:19)
--- NOTE | 2020-02-21 12:41 | PCM48HPAN ---
Post Anesthesia Note - EVALUATION WITHIN 48HRS OF ANESTHETIC Vital Signs in Normal Range: Yes Patient Participated in Evaluation: Yes Respiratory Function Stable: Yes Airway Patent: Yes Cardiovascular Function Stable: Yes Hydration Status Stable: Yes Pain Control Satisfactory: Yes Nausea and Vomiting Control Satisfactory: Yes Mental Status Recovered: Yes Vital Signs: Last Vital Signs Temp 36.6 C 02/21/20 10:00 Pulse 69 02/21/20 10:00 Resp 16 02/21/20 10:00 BP 113/89 02/21/20 10:00 Pulse Ox 93 L 02/21/20 10:33
[2020-02-21] MEDS ORDERED: ceFAZolin 1 GM Vial ONE (12:44)
[2020-02-21 13:42] VITALS: BP 104/81; PULSE 68
[2020-02-21] MEDS ORDERED: Acetaminophen/oxyCODONE 325-5 MG Tab PO ONE (14:00)
--- NOTE | 2020-02-21 14:12 | OR ---
DATE OF OPERATION: 02/21/2020 SURGEON: Hunter Rutherford MD PREOPERATIVE DIAGNOSIS: Symptomatic umbilical hernia. POSTOPERATIVE DIAGNOSIS: Symptomatic umbilical hernia. OPERATION PERFORMED: Open umbilical hernia repair without mesh. ANESTHESIA: Monitored anesthesia care with local anesthetic. Local anesthetic was 1% lidocaine with epinephrine (1:100,000). ESTIMATED BLOOD LOSS: Minimal. COMPLICATIONS: None. INDICATION AND CONSENT: The patient is a 49-year-old male with history of a small umbilical hernia that was asymptomatic for some time, but in the last few months, the patient has been having some symptoms, especially when he is walking around. Symptoms include some mild to moderate pain right at the umbilicus that is better with lying supine. The patient presented to my clinic, I examined the patient and confirmed the presence of umbilical hernia and offered operative repair. We discussed risks, benefits, and alternatives and informed consent was obtained. DESCRIPTION OF PROCEDURE: The patient was seen in the preop area and was doing fine. He was taken to the operating room, placed in supine position. The patient was appropriately padded. Antibiotics were given and monitored anesthesia care was induced. Then, the abdomen was clipped of any hair and then prepped and draped in the usual sterile fashion. Time-out was performed. We began the procedure by injecting local anesthetic in the inferior aspect of the umbilicus. Incision was made in this area and the hernia with hernia contents were dissected circumferentially, taking care not to buttonhole the umbilical stalk. Then, once the hernia sac and its contents were isolated from the surrounding tissues, the hernia sac was released from the edges of the fascia and this was amputated and taken away from the operative field. The hernia sac contained preperitoneal fat as well as some omentum. The rest of the contents were placed back into the abdomen and released from the abdominal wall. The hernia defect was measured and found to be about 1.5 cm. Therefore, a repair without mesh was performed. We used one 0 PDS stitch to perform a two-layered repair on the fascia. The first layer was a horizontal mattress suture with fascia overlap and followed by two [id number] stitches. After this point, the fascia was coming together very well without any tension. Once this was done, the umbilical stalk was reattached to the fascia with 3-0 Vicryl stitches and the skin was closed in layers with the deeper subcutaneous layer closed with 3-0 Vicryl stitches and subcuticular closed with 4-0 Monocryl in a running fashion. Dermabond was applied. Pressure dressing was applied, and the patient was awoken from monitored anesthesia care and taken to the PACU. A total of 20 mL of local anesthetic was infiltrated into the operative field. The patient will be allowed to go home today with pain medications and weight lifting restrictions. The patient to follow up with me in 2 weeks for postop check. JIMMY /[id number] MTDD
== END 2020-02-21 14:00 | disposition home or self-care (01) ==
LOC: JD.SDS 09:49
PROVIDERS: ATTEND Surgery
DX: K42.9 Umbilical hernia without obstruction or gangrene (principal); J44.9 Chronic obstructive pulmonary disease, unspecified; F32.9 Major depressive disorder, single episode, unspecified; K21.9 Gastro-esophageal reflux disease without esophagitis; I10 Essential (primary) hypertension; F17.210 Nicotine dependence, cigarettes, uncomplicated; G47.33 Obstructive sleep apnea (adult) (pediatric); E78.00 Pure hypercholesterolemia, unspecified; Z86.73 Personal history of transient ischemic attack (TIA), and cerebral infarction without residual deficits; Z98.890 Other specified postprocedural states; Z79.899 Other long term (current) drug therapy; Z88.0 Allergy status to penicillin; Z79.82 Long term (current) use of aspirin
CPT/HCPCS: 36415; 49585; 80053; 94640; J0690; J2001; J2250; J2405; J2704; J3010; J7120; 00750

== ENCOUNTER 2020-09-01 22:54 | Observation (INO) | payer MEDICAID, MEDICARE ==
--- NOTE | 2020-09-01 23:46 | EDM.PDOC ---
ED HPI GENERAL MEDICAL PROBLEM - General Chief Complaint: Headache Stated Complaint: VOMITING HEADACHE Time Seen by Provider: 09/01/20 23:45 - History of Present Illness INITIAL COMMENTS - FREE TEXT/NARRATIVE: 49-year-old male presents the emergency room with headache nausea vomiting and upper abdominal pain. Patient believes a lot of his symptoms started after flying here. He had from his luggage and his medications for several days got reunited with his medication several days ago but has not been able to keep them down. Patient is on couple of blood pressure medications as well as diabetes medications. Patient has a burning sensation in his upper abdomen this radiates up into the center of his chest and into the back of his throat. If the patient tries to drink water it is like he is trying to swallow sharp rocks. He has not had any breathing difficulties or shortness of breath. The patient has a headache as well it sounds as though the nausea and vomiting started before the headache. Patient currently has not been able to take his medications because of illness but takes metoprolol tart 25 mg 1 in the morning 2 in the evenings, Metformin 1000 mg twice daily, hydrochlorothiazide 25 mg daily, clopidogrel 75 mg daily, atorvastatin 20 mg daily, amitriptyline 75 mg at bedtime, albuterol 2 puffs 4 times a day, baby aspirin 81 mg daily, and he takes a morning stomach pill before breakfast. - Related Data Allergies Allergy/AdvReac Type Severity Reaction Status Date / Time Penicillins Allergy Rash Verified 09/01/20 23:36 Home Meds: Home Meds Metoprolol Tartrate 25 mg PO QAM 06/23/18 [History] hydroCHLOROthiazide [Hydrochlorothiazide] 25 mg PO DAILY #30 tab 06/23/18 [Rx] Metoprolol Tartrate 50 mg PO QPM 11/25/18 [History] Albuterol Sulfate [Albuterol Sulfate Hfa] 1 puff INH Q4H PRN 02/17/20 [History] Amitriptyline [Elavil] 75 mg PO BEDTIME 02/17/20 [History] Aspirin 81 mg PO BID 02/17/20 [History] Clopidogrel Bisulfate [Plavix] 75 mg PO DAILY 02/17/20 [History] Pantoprazole Sodium [Protonix] 40 mg PO DAILY 02/17/20 [History] atorvaSTATin [Lipitor] 20 mg PO DAILY 02/17/20 [History] metFORMIN HCl [Metformin HCl] 1,000 mg PO BID 02/17/20 [History] oxyCODONE HCl/Acetaminophen [Percocet 5-325 mg Tablet] 1 each PO Q6H PRN #12 tablet 02/21/20 [Rx] Past Medical History HEENT History: Reports: Allergic Rhinitis, Cataract, Hard of Hearing Other HEENT History: 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, tinnitis, wears glasses Cardiovascular History: Reports: High Cholesterol, Hypertension Other Cardiovascular History: repair of hole in heart, heart disease, vertebrobasilar artery syndrome, PFO with repair Respiratory History: Reports: COPD, Sleep Apnea Other Respiratory History: panlobular emphysema Gastrointestinal History: Reports: GERD, Hiatal Hernia Genitourinary History: Reports: None PER DIEM INTERPRETER History: Reports: None Musculoskeletal History: Reports: Arthritis Other Musculoskeletal History: 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 Neurological History: Reports: CVA, Headaches, Chronic Other Neuro History: cephalgia Psychiatric History: Reports: Depression Endocrine/Metabolic History: Reports: None Hematologic History: Reports: None Immunologic History: Reports: None Oncologic (Cancer) History: Reports: None Dermatologic History: Reports: None - Infectious Disease History Infectious Disease History: Reports: Chicken Pox - Past Surgical History Head Surgeries/Procedures: Reports: None HEENT Surgical History: Reports: None Cardiovascular Surgical History: Reports: Other (See Below) Other Cardiovascular Surgeries/Procedures: foramen ovale surgical repair Respiratory Surgical History: Reports: None GI Surgical History: Reports: Hernia, Inguinal Male Surgical History: Reports: Vasectomy Endocrine Surgical History: Reports: None Neurological Surgical History: Reports: None Musculoskeletal Surgical History: Reports: Arthroscopic Knee, Arthroscopic Procedure Oncologic Surgical History: Reports: None Dermatological Surgical History: Reports: None Social & Family History - Tobacco Use Tobacco Use Status *Q: Current Every Day Tobacco User Years of Tobacco use: 30 Packs/Tins Daily: 0.5 - Caffeine Use Caffeine Use: Reports: Coffee - Recreational Drug Use Recreational Drug Use: Yes Recreational Drug Type: Reports: Marijuana/Hashish Recreational Drug Use Frequency: Weekly ED ROS GENERAL - Review of Systems Review Of Systems: See Below Constitutional: Reports: No Symptoms HEENT: Reports: No Symptoms Respiratory: Reports: No Symptoms Cardiovascular: Reports: Other (Esophageal like pain) Endocrine: Reports: No Symptoms GI/Abdominal: Reports: Abdominal Pain (Upper abdominal pain) : Reports: No Symptoms Musculoskeletal: Reports: No Symptoms Skin: Reports: No Symptoms Neurological: Reports: Headache Psychiatric: Reports: No Symptoms, Other (He seems a little anxious but denies any psychiatric problems) Hematologic/Lymphatic: Reports: No Symptoms ED EXAM, GENERAL - Physical Exam Exam: See Below Exam Limited By: Other (The patient is having a hard time getting in any 1 position and staying comfortable) General Appearance: Alert, Anxious Eye Exam: Bilateral Eye: Normal Inspection, PERRL Ears: Normal External Exam, Normal Canal, Hearing Grossly Normal, Normal TMs Nose: Normal Inspection, Normal Mucosa, No Blood Throat/Mouth: Normal Inspection, Normal Lips, Normal Teeth, Normal Gums, Normal Oropharynx, Normal Voice, No Airway Compromise Head: Atraumatic, Normocephalic Neck: Normal Inspection, Supple, Non-Tender, Full Range of Motion. No: Lymphadenopathy (L), Lymphadenopathy (R) Respiratory/Chest: No Respiratory Distress, Lungs Clear, Normal Breath Sounds Cardiovascular: No Edema, No Murmur, Tachycardia GI/Abdominal: Normal Bowel Sounds, Soft, Other (He has some epigastric and upper abdominal discomfort with palpation). No: Guarding, Rigid, Rebound Back Exam: Normal Inspection. No: CVA Tenderness (L), CVA Tenderness (R), Vertebral Tenderness Extremities: Normal Inspection, No Pedal Edema Neurological: Alert, Oriented, Other (He is anxious) Psychiatric: Anxious Skin Exam: Warm, Dry, Intact #1 Interpretation EKG Date: 09/02/20 Rhythm: Other (Sinus tachycardia) Rate (Beats/Min): 121 [place]: Normal QRS: Normal ST-T: Other (ST depression most likely related to tachycardia) Comparison: Change From Previous EKG (No significant change from prior EKG that was done without a tachycardia of note is the ST depression on today's study was not noted prior but this is thought to be related to the tachycardia) Course - Vital Signs Last Recorded V/S: Last Vital Signs Temp 35.7 C L 09/01/20 23:32 Pulse 83 09/02/20 06:00 Resp 16 09/02/20 06:00 BP 168/118 H 09/02/20 06:00 Pulse Ox 98 09/02/20 06:00 - Orders/Labs/Meds Orders: Active Orders 24 hr Category Date Time Status Patient Status [ADT] Stat ADT 09/02/20 06:29 Ordered EKG Documentation Completion [RC] STAT Care 09/02/20 00:07 Active Chest 1V Frontal [CR] Stat Exams 09/02/20 00:08 Taken CBC WITH AUTO DIFF [HEME] Stat Lab 09/02/20 06:00 Results CULTURE BLOOD [BC] Stat Lab 09/02/20 00:25 Received CULTURE BLOOD [BC] Stat Lab 09/02/20 00:39 Received LACTIC ACID [CHEM] Stat Lab 09/02/20 06:00 Received UA W/OLIVIA RFLX IF INDICATED [URIN] Stat Lab 09/02/20 04:59 Ordered Lactated Ringers [Ringers, Lactated] 1,000 ml Med 09/02/20 00:15 Active IV ASDIRECTED Sodium Chloride 0.9% @ 125 MLS/HR (1000ml Bag) Med 09/02/20 06:45 Ordered Sodium Chloride 0.9% [Normal Saline] 1,000 ml IV ASDIRECTED cefTRIAXone [Rocephin] 2 gm Med 09/02/20 06:45 Ordered Sodium Chloride 0.9% [Normal Saline] 100 ml IV Q24H Blood Culture x2 Reflex Set [OM.PC] Stat Oth 09/02/20 00:12 Ordered Medication Orders Lactated Ringer's (Ringers, Lactated) 1,000 mls @ 125 mls/hr IV ASDIRECTED MICHAELA Last Admin: 09/02/20 00:08 Dose: 125 mls/hr Documented by: ANGELITA Ceftriaxone Sodium 2 gm/ (Sodium Chloride) 100 mls @ 200 mls/hr IV Q24H MICHAELA Sodium Chloride (Normal Saline) 1,000 mls @ 125 mls/hr IV ASDIRECTED MICHAELA Labs: Laboratory Tests 09/01/20 09/02/20 09/02/20 Range/Units 23:40 00:03 00:03 WBC 28.61 H (4.23-9.07) K/mm3 RBC 5.63 (4.63-6.08) M/mm3 Hgb 16.6 (13.7-17.5) gm/dl Hct 48.5 (40.1-51.0) % MCV 86.1 (79.0-92.2) fl MCH 29.5 (25.7-32.2) pg MCHC 34.2 (32.2-35.5) g/dl RDW Std Deviation 43.6 (35.1-43.9) fL Plt Count 469 H D (163-337) K/mm3 MPV 9.4 (9.4-12.3) fl Neut % (Auto) 86.0 H (34.0-67.9) % Lymph % (Auto) 7.2 L (21.8-53.1) % [place] % (Auto) 6.2 (5.3-12.2) % Eos % (Auto) 0 L (0.8-7.0) Baso % (Auto) 0.1 (0.1-1.2) % Neut # (Auto) 24.62 H (1.78-5.38) K/mm3 Lymph # (Auto) 2.05 (1.32-3.57) K/mm3 [place] # (Auto) 1.76 H (0.30-0.82) K/mm3 Eos # (Auto) 0.00 L (0.04-0.54) K/mm3 Baso # (Auto) 0.03 (0.01-0.08) K/mm3 Manual Slide Review Abnormal smear Sodium 137 (136-145) mEq/L Potassium 3.6 (3.5-5.1) mEq/L Chloride 94 L (98-107) mEq/L Carbon Dioxide 27 (21-32) mEq/L Anion Gap 19.6 H (5-15) BUN 14 (7-18) mg/dL Creatinine 1.5 H (0.7-1.3) mg/dL Est Cr Clr Drug Dosing 66.10 mL/min Estimated GFR (MDRD) 50 (>60) mL/min BUN/Creatinine Ratio 9.3 L (14-18) Glucose 157 H (70-99) mg/dL Lactic Acid (0.4-2.0) mmol/L Calcium 10.0 (8.5-10.1) mg/dL Total Bilirubin 0.9 (0.2-1.0) mg/dL AST 21 (15-37) U/L ALT 29 (16-63) U/L Alkaline Phosphatase 82 (46-116) U/L Troponin I < 0.017 (0.00-0.056) ng/mL Total Protein 8.8 H (6.4-8.2) g/dl Albumin 4.5 (3.4-5.0) g/dl Globulin 4.3 gm/dL Albumin/Globulin Ratio 1.1 (1-2) Lipase 192 (73-393) U/L Urine Color (Yellow) Urine Appearance (Clear) Urine pH (5.0-8.0) Ur Specific [place] (1.005-1.030) Urine Protein (Negative) Urine Glucose (UA) (Negative) Urine Ketones (Negative) Urine Occult Blood (Negative) Urine Nitrite (Negative) Urine Bilirubin (Negative) Urine Urobilinogen (0.2-1.0) Ur Leukocyte Esterase (Negative) Urine RBC (0-5) /hpf Urine WBC (0-5) /hpf Ur Squamous Epith Cells (0-5) /hpf Urine Bacteria (FEW) /hpf Urine Mucus (FEW) /hpf Influenza Type A RNA Negative (NEGATIVE) Influenza Type B RNA Negative (NEGATIVE) SARS-CoV-2 RNA (YARELIS) Negative (NEGATIVE) 09/02/20 09/02/20 09/02/20 Range/Units 00:25 03:24 03:25 WBC (4.23-9.07) K/mm3 RBC (4.63-6.08) M/mm3 Hgb (13.7-17.5) gm/dl Hct (40.1-51.0) % MCV (79.0-92.2) fl MCH (25.7-32.2) pg MCHC (32.2-35.5) g/dl RDW Std Deviation (35.1-43.9) fL Plt Count (163-337) K/mm3 MPV (9.4-12.3) fl Neut % (Auto) (34.0-67.9) % Lymph % (Auto) (21.8-53.1) % [place] % (Auto) (5.3-12.2) % Eos % (Auto) (0.8-7.0) Baso % (Auto) (0.1-1.2) % Neut # (Auto) (1.78-5.38) K/mm3 Lymph # (Auto) (1.32-3.57) K/mm3 [place] # (Auto) (0.30-0.82) K/mm3 Eos # (Auto) (0.04-0.54) K/mm3 Baso # (Auto) (0.01-0.08) K/mm3 Manual Slide Review Sodium (136-145) mEq/L Potassium (3.5-5.1) mEq/L Chloride (98-107) mEq/L Carbon Dioxide (21-32) mEq/L Anion Gap (5-15) BUN (7-18) mg/dL Creatinine (0.7-1.3) mg/dL Est Cr Clr Drug Dosing mL/min Estimated GFR (MDRD) (>60) mL/min BUN/Creatinine Ratio (14-18) Glucose (70-99) mg/dL Lactic Acid 3.1 H* 1.8 (0.4-2.0) mmol/L Calcium (8.5-10.1) mg/dL Total Bilirubin (0.2-1.0) mg/dL AST (15-37) U/L ALT (16-63) U/L Alkaline Phosphatase (46-116) U/L Troponin I (0.00-0.056) ng/mL Total Protein (6.4-8.2) g/dl Albumin (3.4-5.0) g/dl Globulin gm/dL Albumin/Globulin Ratio (1-2) Lipase (73-393) U/L Urine Color Yellow (Yellow) Urine Appearance Clear (Clear) Urine pH 8.5 H (5.0-8.0) Ur Specific [place] 1.020 (1.005-1.030) Urine Protein 3+ H (Negative) Urine Glucose (UA) Negative (Negative) Urine Ketones 1+ H (Negative) Urine Occult Blood Trace-intact H (Negative) Urine Nitrite Negative (Negative) Urine Bilirubin Negative (Negative) Urine Urobilinogen 0.2 (0.2-1.0) Ur Leukocyte Esterase Negative (Negative) Urine RBC 0-5 (0-5) /hpf Urine WBC Not seen (0-5) /hpf Ur Squamous Epith Cells Not seen (0-5) /hpf Urine Bacteria Few (FEW) /hpf Urine Mucus Few (FEW) /hpf Influenza Type A RNA (NEGATIVE) Influenza Type B RNA (NEGATIVE) SARS-CoV-2 RNA (YARELIS) (NEGATIVE) 09/02/20 09/02/20 09/02/20 Range/Units 04:07 06:00 06:00 WBC 24.42 H (4.23-9.07) K/mm3 RBC 4.89 (4.63-6.08) M/mm3 Hgb 14.9 D (13.7-17.5) gm/dl Hct 42.9 (40.1-51.0) % MCV 87.7 (79.0-92.2) fl MCH 30.5 (25.7-32.2) pg MCHC 34.7 (32.2-35.5) g/dl RDW Std Deviation 44.0 H (35.1-43.9) fL Plt Count 399 H (163-337) K/mm3 MPV 9.2 L (9.4-12.3) fl Neut % (Auto) 79.2 H (34.0-67.9) % Lymph % (Auto) 10.6 L (21.8-53.1) % [place] % (Auto) 9.7 (5.3-12.2) % Eos % (Auto) 0 L (0.8-7.0) Baso % (Auto) 0.1 (0.1-1.2) % Neut # (Auto) 19.35 H (1.78-5.38) K/mm3 Lymph # (Auto) 2.58 (1.32-3.57) K/mm3 [place] # (Auto) 2.36 H (0.30-0.82) K/mm3 Eos # (Auto) 0.01 L (0.04-0.54) K/mm3 Baso # (Auto) 0.02 (0.01-0.08) K/mm3 Manual Slide Review Sodium 136 (136-145) mEq/L Potassium 3.6 (3.5-5.1) mEq/L Chloride 98 (98-107) mEq/L Carbon Dioxide 29 (21-32) mEq/L Anion Gap 12.6 (5-15) BUN 12 (7-18) mg/dL Creatinine 1.1 (0.7-1.3) mg/dL Est Cr Clr Drug Dosing 90.14 mL/min Estimated GFR (MDRD) > 60 (>60) mL/min BUN/Creatinine Ratio 10.9 L (14-18) Glucose 128 H (70-99) mg/dL Lactic Acid (0.4-2.0) mmol/L Calcium 8.7 (8.5-10.1) mg/dL Total Bilirubin (0.2-1.0) mg/dL AST (15-37) U/L ALT (16-63) U/L Alkaline Phosphatase (46-116) U/L Troponin I < 0.017 (0.00-0.056) ng/mL Total Protein (6.4-8.2) g/dl Albumin (3.4-5.0) g/dl Globulin gm/dL Albumin/Globulin Ratio (1-2) Lipase (73-393) U/L Urine Color (Yellow) Urine Appearance (Clear) Urine pH (5.0-8.0) Ur Specific [place] (1.005-1.030) Urine Protein (Negative) Urine Glucose (UA) (Negative) Urine Ketones (Negative) Urine Occult Blood (Negative) Urine Nitrite (Negative) Urine Bilirubin (Negative) Urine Urobilinogen (0.2-1.0) Ur Leukocyte Esterase (Negative) Urine RBC (0-5) /hpf Urine WBC (0-5) /hpf Ur Squamous Epith Cells (0-5) /hpf Urine Bacteria (FEW) /hpf Urine Mucus (FEW) /hpf Influenza Type A RNA (NEGATIVE) Influenza Type B RNA (NEGATIVE) SARS-CoV-2 RNA (YARELIS) (NEGATIVE) Meds: Medications Generic Name Dose Route Start Last Admin Trade Name Freq PRN Reason Stop Dose Admin Lactated Ringer's 1,000 mls @ 125 mls/hr 09/02/20 00:15 09/02/20 00:08 Ringers, Lactated IV 125 mls/hr ASDIRECTED MICHAELA Administration Ceftriaxone Sodium 2 gm/ 100 mls @ 200 mls/hr 09/02/20 06:45 Sodium Chloride IV Q24H MICHAELA Sodium Chloride 1,000 mls @ 125 mls/hr 09/02/20 06:45 Normal Saline IV ASDIRECTED MICHAELA Discontinued Medications Generic Name Dose Route Start Last Admin Trade Name Freq PRN Reason Stop Dose Admin Al Hydroxide/Mg Hydroxide 30 0 ml 09/02/20 00:02 09/02/20 00:08 ml/ Lidocaine HCl 15 ml PO 09/02/20 00:03 30 ml ONETIME ONE Administration Famotidine 40 mg 09/02/20 03:22 09/02/20 03:41 Famotidine 20 Mg/2 Ml Sdv IVPUSH 09/02/20 03:23 40 mg ONETIME ONE Administration Hydromorphone HCl 0.5 mg 09/02/20 03:59 09/02/20 04:08 Hydromorphone 0.5 Mg/0.5 Ml Syringe IVPUSH 09/02/20 04:00 0.5 mg ONETIME ONE Administration Lactated Ringer's 500 mls @ 999 mls/hr 09/02/20 00:57 09/02/20 01:58 Ringers, Lactated IV 09/02/20 01:27 999 mls/hr .BOLUS ONE Administration Lorazepam 1 mg 09/02/20 00:04 09/02/20 00:08 Lorazepam 2 Mg/Ml Sdv IVPUSH 09/02/20 00:05 1 mg ONETIME ONE Administration Metoprolol Tartrate 50 mg 09/02/20 03:24 09/02/20 03:41 Metoprolol Tartrate 50 Mg Tab PO 09/02/20 03:25 50 mg ONETIME ONE Administration Ondansetron HCl 4 mg 09/02/20 00:01 09/02/20 00:06 Ondansetron 4 Mg/2 Ml Sdv IVPUSH 09/02/20 00:02 4 mg ONETIME ONE Administration Ondansetron HCl 4 mg 09/02/20 04:00 09/02/20 04:08 Ondansetron 4 Mg/2 Ml Sdv IVPUSH 09/02/20 04:01 4 mg ONETIME ONE Administration Pantoprazole Sodium 40 mg 09/02/20 01:46 09/02/20 01:58 Pantoprazole 40 Mg Vial IVPUSH 09/02/20 01:47 40 mg ONETIME ONE Administration Sucralfate 1 gm 09/02/20 01:46 09/02/20 01:58 Sucralfate Suspension 1 Gm/10 Ml Cup PO 09/02/20 01:47 1 gm ONETIME ONE Administration - Re-Assessments/Exams Free Text/Narrative Re-Assessment/Exam: 09/02/20 00:16 Labs ordered we will try and get his nausea and vomiting under control and then reassess his blood pressure at that time. 09/02/20 00:56 Labs reviewed he has some degree of dehydration and his white count is quite elevated. At this time the patient is resting comfortably and is doing much better his blood pressures come down most recent blood pressure is 166/121. 09/02/20 01:46 Patient is doing better he still having some burning sensation. We will give him some Carafate. The patient's headache has resolved. 09/02/20 05:57 Patient's blood pressure slowly coming down it went back up and then he was given oral Lopressor his pulse rate is also come down is now in the 80s with fluid resuscitation and its been trending down since he said the IV fluids going most recent blood pressure is 168/118 with a pulse of 83. The patient has an elevated white count this is probably related to stress response patient has not run any fever since he has been here chest x-ray is nondiagnostic for an infectious process as his urine his lactic acid has been trending down initially at 3.1 on the recheck was 1.8. With his pulse and his white count consideration for sepsis was given however it was felt that he was dehydrated and antibiotics were not initiated. Of note on the microscopic portion of his white cell differential bandemia was not noted. At this point the patient is concerned about going home and being able to keep his medications down. We will recheck morning labs. I discussed the situation with our hospitalist, Dr. Prescott the patient will be placed on observation for continued observation, rehydration, and treatment for his reflux esophagitis. 09/02/20 06:38 Patient's white count is indeed coming down but not as much as I had hoped as the patient is pen allergic we will give 2 g of Rocephin. Change IV solution from LR to NS because of the compatibility with the Rocephin. Departure - Departure Time of Disposition: 06:01 Disposition: Refer to Observation Clinical Impression: Dehydration, Severe hypertension, Reflux esophagitis - Discharge Information Referrals: PCP,None [Primary Care Provider] - Forms: ED Department Discharge Sepsis Event Note (ED) - Evaluation Sepsis Screening Result: No Definite Risk - Focused Exam Vital Signs: Vital Signs Temp Pulse Pulse Resp BP BP Pulse Ox 09/02/20 06:00 83 16 168/118 H 98 09/02/20 03:41 98 189/135 H 09/02/20 03:30 100 189/135 H 09/02/20 03:00 104 H 190/130 H 09/02/20 02:30 102 H 16 208/121 H 6 L 09/02/20 01:25 106 H 16 189/125 H 92 L 09/01/20 23:32 35.7 C L 91 18 197/143 H 100 - My Orders Last 24 Hours: My Active Orders 09/02/20 00:07 EKG Documentation Completion [RC] STAT 09/02/20 00:08 Chest 1V Frontal [CR] Stat 09/02/20 00:12 Blood Culture x2 Reflex Set [OM.PC] Stat 09/02/20 00:15 Lactated Ringers [Ringers, Lactated] 1,000 ml IV ASDIRECTED 09/02/20 00:25 CULTURE BLOOD [BC] Stat 09/02/20 00:39 CULTURE BLOOD [BC] Stat 09/02/20 04:59 UA W/OLIVIA RFLX IF INDICATED [URIN] Stat 09/02/20 06:00 CBC WITH AUTO DIFF [HEME] Stat LACTIC ACID [CHEM] Stat 09/02/20 06:29 Patient Status [ADT] Stat 09/02/20 06:45 Sodium Chloride 0.9% @ 125 MLS/HR (1000ml Bag) Sodium Chloride 0.9% [Normal Saline] 1,000 ml IV ASDIRECTED cefTRIAXone [Rocephin] 2 gm Sodium Chloride 0.9% [Normal Saline] 100 ml IV Q24H - Assessment/Plan Last 24 Hours: My Active Orders 09/02/20 00:07 EKG Documentation Completion [RC] STAT 09/02/20 00:08 Chest 1V Frontal [CR] Stat 09/02/20 00:12 Blood Culture x2 Reflex Set [OM.PC] Stat 09/02/20 00:15 Lactated Ringers [Ringers, Lactated] 1,000 ml IV ASDIRECTED 09/02/20 00:25 CULTURE BLOOD [BC] Stat 09/02/20 00:39 CULTURE BLOOD [BC] Stat 09/02/20 04:59 UA W/OLIVIA RFLX IF INDICATED [URIN] Stat 09/02/20 06:00 CBC WITH AUTO DIFF [HEME] Stat LACTIC ACID [CHEM] Stat 09/02/20 06:29 Patient Status [ADT] Stat 09/02/20 06:45 Sodium Chloride 0.9% @ 125 MLS/HR (1000ml Bag) Sodium Chloride 0.9% [Normal Saline] 1,000 ml IV ASDIRECTED cefTRIAXone [Rocephin] 2 gm Sodium Chloride 0.9% [Normal Saline] 100 ml IV Q24H
[2020-09-02] MEDS ORDERED: Ondansetron 4 MG/2 ML SDV IVPUSH ONE ×2 (00:01→04:00)
[2020-09-02] MEDS ORDERED: Alum Hydrox/Mag Hydrox/Simeth 30 ML, Lidocaine 2% 15 ML PO ONE ×2 (00:02)
[2020-09-02] MEDS ORDERED: LORazepam 2 MG/ML SDV IVPUSH ONE (00:04)
[2020-09-02] MEDS ORDERED: Lactated Ringers 1,000 ML IV SCH (00:15)
[2020-09-02 00:21] LABS: CORONAVIRUS COVID-19 NAA NEGATIVE (NEGATIVE)
[2020-09-02] MEDS ORDERED: Lactated Ringers 500 ML IV ONE (00:57)
[2020-09-02] MEDS ORDERED: Sucralfate Suspension 1 GM/10 ML Cup PO ONE (01:46)
[2020-09-02] MEDS ORDERED: Pantoprazole 40 MG Vial IVPUSH ONE (01:46)
[2020-09-02] MEDS ORDERED: Famotidine 20 MG/2 ML SDV IVPUSH ONE (03:22)
[2020-09-02] MEDS ORDERED: Metoprolol Tartrate 50 MG Tab PO ONE (03:24)
[2020-09-02] MEDS ORDERED: HYDROmorphone 0.5 MG/0.5 ML Syringe IVPUSH ONE (03:59)
--- NOTE | 2020-09-02 06:52 | CR ---
Chest: Portable view of the chest was obtained. Comparison: No prior chest imaging is available. Heart size and mediastinum are within normal limits. Osseous structures show nothing acute. No definite acute parenchymal change is seen within either lung. Impression: 1. Nothing acute is identified on portable chest x-ray. Diagnostic code #1
[2020-09-02] MEDS: cefTRIAXone 2 GM in Sodium Chloride 0.9% 100 ML IV SCH (06:55)
[2020-09-02] MEDS: Sodium Chloride 0.9% 1,000 ML IV SCH ×3 (07:51→23:39)
--- NOTE | 2020-09-02 07:52 | PCM.HP.2 ---
H&P History of Present Illness - General Date of Service: 09/02/20 Admit Problem/Dx: Admission Diagnosis/Problem Admission Diagnosis/Problem Dehydration Source of Information: Patient History Limitations: Reports: No Limitations - History of Present Illness Initial Comments - Free Text/Narative: The patient is a 49-year-old gentleman who had presented to the [facility] with a chief complaint of fatigue. He was found to have very poorly controlled high blood pressure. The patient's diastolic blood pressure has been markedly elevated and refractory to treatment. The patient reports that he had been traveling to [place] and his luggage got lost and he spent an extra night in [place] and essentially had been without his medications for approximately 3 days. In the next 3 days prior to admission the patient had developed nausea and vomiting and had been unable to keep his medications down. The patient also was noted to have chest pain which had not responded to any GI cocktails or other agents for esophagitis. The patient has denied any fever or chills. The patient says that he has had a cough. It has been nonproductive of sputum. He has had no specific aggravating or relieving factors. Onset of Symptoms: Reports: Gradual Duration of Symptoms: Reports: Day(s): Location: Reports: Chest Quality: Reports: Ache Severity: Moderate Improves with: Reports: None Worsens with: Reports: None Context: Denies: Sick Contact Associated Symptoms: Reports: Chest Pain, Cough - Related Data Allergies/Adverse Reactions: Allergies Allergy/AdvReac Type Severity Reaction Status Date / Time Penicillins Allergy Rash Verified 09/01/20 23:36 Home Medications: Home Meds Metoprolol Tartrate 25 mg PO QAM 06/23/18 [History] hydroCHLOROthiazide [Hydrochlorothiazide] 25 mg PO DAILY #30 tab 06/23/18 [Rx] Metoprolol Tartrate 50 mg PO QPM 11/25/18 [History] Albuterol Sulfate [Albuterol Sulfate Hfa] 1 puff INH Q4H PRN 02/17/20 [History] Amitriptyline [Elavil] 75 mg PO BEDTIME 02/17/20 [History] Aspirin 81 mg PO DAILY 02/17/20 [History] Clopidogrel Bisulfate [Plavix] 75 mg PO DAILY 02/17/20 [History] atorvaSTATin [Lipitor] 20 mg PO DAILY 02/17/20 [History] metFORMIN HCl [Metformin HCl] 1,000 mg PO BID 02/17/20 [History] Omeprazole 20 mg PO QAM 09/02/20 [History] Past Medical History HEENT History: Reports: Allergic Rhinitis, Cataract, Hard of Hearing Other HEENT History: 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, tinnitis, wears glasses Cardiovascular History: Reports: High Cholesterol, Hypertension Other Cardiovascular History: repair of hole in heart, heart disease, vertebrobasilar artery syndrome, PFO with repair Respiratory History: Reports: COPD, Sleep Apnea Other Respiratory History: panlobular emphysema Gastrointestinal History: Reports: GERD, Hiatal Hernia Genitourinary History: Reports: None [employer]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 Musculoskeletal History: Reports: Arthritis Other Musculoskeletal History: 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 Neurological History: Reports: CVA, Headaches, Chronic Other Neuro History: cephalgia Psychiatric History: Reports: Depression Endocrine/Metabolic History: Reports: None Hematologic History: Reports: None Immunologic History: Reports: None Oncologic (Cancer) History: Reports: None Dermatologic History: Reports: None - Infectious Disease History Infectious Disease History: Reports: Chicken Pox - Past Surgical History Head Surgeries/Procedures: Reports: None HEENT Surgical History: Reports: None Cardiovascular Surgical History: Reports: Other (See Below) Other Cardiovascular Surgeries/Procedures: foramen ovale surgical repair Respiratory Surgical History: Reports: None GI Surgical History: Reports: Hernia, Inguinal Male Surgical History: Reports: Vasectomy Endocrine Surgical History: Reports: None Neurological Surgical History: Reports: None Musculoskeletal Surgical History: Reports: Arthroscopic Knee, Arthroscopic Procedure Oncologic Surgical History: Reports: None Dermatological Surgical History: Reports: None Social & Family History - Tobacco Use Tobacco Use Status *Q: Current Every Day Tobacco User Years of Tobacco use: 30 Packs/Tins Daily: 0.5 - Caffeine Use Caffeine Use: Reports: Coffee - Recreational Drug Use Recreational Drug Use: Yes Recreational Drug Type: Reports: Marijuana/Hashish Recreational Drug Use Frequency: Weekly H&P Review of Systems - Review of Systems: Review Of Systems: See Below General: Reports: Malaise, Weakness HEENT: Reports: No Symptoms Pulmonary: Reports: Wheezing, Cough. Denies: Sputum Cardiovascular: Reports: Chest Pain Gastrointestinal: Reports: Abdominal Pain (Epigastric), Nausea, Vomiting Genitourinary: Reports: No Symptoms Musculoskeletal: Reports: No Symptoms Skin: Reports: No Symptoms Psychiatric: Reports: No Symptoms Neurological: Reports: No Symptoms Hematologic/Lymphatic: Reports: No Symptoms Immunologic: Reports: No Symptoms Exam - Exam Exam: See Below - Vital Signs Vital Signs: Last Vital Signs Temp 35.7 C L 09/01/20 23:32 Pulse 83 09/02/20 06:00 Resp 16 09/02/20 06:00 BP 168/118 H 09/02/20 06:00 Pulse Ox 98 09/02/20 06:00 Weight: 90.991 kg - Exam Quality Assessment: DVT Prophylaxis (Currently on Plavix). No: Supplemental Oxygen General: Alert, Oriented, Cooperative HEENT: Conjunctiva Clear, EACs Clear, EOMI, Mucosa Moist & [place], Nares Patent, PERRLA Neck: Supple, Trachea Midline Lungs: Rhonchi (Scattered) Cardiovascular: Regular Rate, Regular Rhythm GI/Abdominal Exam: Normal Bowel Sounds, Soft, Non-Tender, No Distention, Other ( Umbilical hernia). No: Guarding, Rigid (Male) Exam: Deferred Rectal (Males) Exam: Deferred Back Exam: Normal Inspection, Full Range of Motion Extremities: Normal Inspection, Normal Range of Motion, No Pedal Edema Skin: Warm, Dry, Intact Neurological: Cranial Nerves Intact, Normal Gait, Normal Speech Neuro Extensive - Mental Status: Alert, Oriented x3 Psychiatric: Alert, Normal Affect, Normal Mood - Patient Data Lab Results Last 24 hrs: Laboratory Results - last 24 hr 09/01/20 09/02/20 09/02/20 Range/Units 23:40 00:03 00:03 WBC 28.61 H (4.23-9.07) K/mm3 RBC 5.63 (4.63-6.08) M/mm3 Hgb 16.6 (13.7-17.5) gm/dl Hct 48.5 (40.1-51.0) % MCV 86.1 (79.0-92.2) fl MCH 29.5 (25.7-32.2) pg MCHC 34.2 (32.2-35.5) g/dl RDW Std Deviation 43.6 (35.1-43.9) fL Plt Count 469 H D (163-337) K/mm3 MPV 9.4 (9.4-12.3) fl Neut % (Auto) 86.0 H (34.0-67.9) % Lymph % (Auto) 7.2 L (21.8-53.1) % [place] % (Auto) 6.2 (5.3-12.2) % Eos % (Auto) 0 L (0.8-7.0) Baso % (Auto) 0.1 (0.1-1.2) % Neut # (Auto) 24.62 H (1.78-5.38) K/mm3 Lymph # (Auto) 2.05 (1.32-3.57) K/mm3 [place] # (Auto) 1.76 H (0.30-0.82) K/mm3 Eos # (Auto) 0.00 L (0.04-0.54) K/mm3 Baso # (Auto) 0.03 (0.01-0.08) K/mm3 Manual Slide Review Abnormal smear Sodium 137 (136-145) mEq/L Potassium 3.6 (3.5-5.1) mEq/L Chloride 94 L (98-107) mEq/L Carbon Dioxide 27 (21-32) mEq/L Anion Gap 19.6 H (5-15) BUN 14 (7-18) mg/dL Creatinine 1.5 H (0.7-1.3) mg/dL Est Cr Clr Drug Dosing 66.10 mL/min Estimated GFR (MDRD) 50 (>60) mL/min BUN/Creatinine Ratio 9.3 L (14-18) Glucose 157 H (70-99) mg/dL Lactic Acid (0.4-2.0) mmol/L Calcium 10.0 (8.5-10.1) mg/dL Total Bilirubin 0.9 (0.2-1.0) mg/dL AST 21 (15-37) U/L ALT 29 (16-63) U/L Alkaline Phosphatase 82 (46-116) U/L Troponin I < 0.017 (0.00-0.056) ng/mL Total Protein 8.8 H (6.4-8.2) g/dl Albumin 4.5 (3.4-5.0) g/dl Globulin 4.3 gm/dL Albumin/Globulin Ratio 1.1 (1-2) Lipase 192 (73-393) U/L Urine Color (Yellow) Urine Appearance (Clear) Urine pH (5.0-8.0) Ur Specific [place] (1.005-1.030) Urine Protein (Negative) Urine Glucose (UA) (Negative) Urine Ketones (Negative) Urine Occult Blood (Negative) Urine Nitrite (Negative) Urine Bilirubin (Negative) Urine Urobilinogen (0.2-1.0) Ur Leukocyte Esterase (Negative) Urine RBC (0-5) /hpf Urine WBC (0-5) /hpf Ur Squamous Epith Cells (0-5) /hpf Urine Bacteria (FEW) /hpf Urine Mucus (FEW) /hpf Influenza Type A RNA Negative (NEGATIVE) Influenza Type B RNA Negative (NEGATIVE) SARS-CoV-2 RNA (YARELIS) Negative (NEGATIVE) 09/02/20 09/02/20 09/02/20 Range/Units 00:25 03:24 03:25 WBC (4.23-9.07) K/mm3 RBC (4.63-6.08) M/mm3 Hgb (13.7-17.5) gm/dl Hct (40.1-51.0) % MCV (79.0-92.2) fl MCH (25.7-32.2) pg MCHC (32.2-35.5) g/dl RDW Std Deviation (35.1-43.9) fL Plt Count (163-337) K/mm3 MPV (9.4-12.3) fl Neut % (Auto) (34.0-67.9) % Lymph % (Auto) (21.8-53.1) % [place] % (Auto) (5.3-12.2) % Eos % (Auto) (0.8-7.0) Baso % (Auto) (0.1-1.2) % Neut # (Auto) (1.78-5.38) K/mm3 Lymph # (Auto) (1.32-3.57) K/mm3 [place] # (Auto) (0.30-0.82) K/mm3 Eos # (Auto) (0.04-0.54) K/mm3 Baso # (Auto) (0.01-0.08) K/mm3 Manual Slide Review Sodium (136-145) mEq/L Potassium (3.5-5.1) mEq/L Chloride (98-107) mEq/L Carbon Dioxide (21-32) mEq/L Anion Gap (5-15) BUN (7-18) mg/dL Creatinine (0.7-1.3) mg/dL Est Cr Clr Drug Dosing mL/min Estimated GFR (MDRD) (>60) mL/min BUN/Creatinine Ratio (14-18) Glucose (70-99) mg/dL Lactic Acid 3.1 H* 1.8 (0.4-2.0) mmol/L Calcium (8.5-10.1) mg/dL Total Bilirubin (0.2-1.0) mg/dL AST (15-37) U/L ALT (16-63) U/L Alkaline Phosphatase (46-116) U/L Troponin I (0.00-0.056) ng/mL Total Protein (6.4-8.2) g/dl Albumin (3.4-5.0) g/dl Globulin gm/dL Albumin/Globulin Ratio (1-2) Lipase (73-393) U/L Urine Color Yellow (Yellow) Urine Appearance Clear (Clear) Urine pH 8.5 H (5.0-8.0) Ur Specific [place] 1.020 (1.005-1.030) Urine Protein 3+ H (Negative) Urine Glucose (UA) Negative (Negative) Urine Ketones 1+ H (Negative) Urine Occult Blood Trace-intact H (Negative) Urine Nitrite Negative (Negative) Urine Bilirubin Negative (Negative) Urine Urobilinogen 0.2 (0.2-1.0) Ur Leukocyte Esterase Negative (Negative) Urine RBC 0-5 (0-5) /hpf Urine WBC Not seen (0-5) /hpf Ur Squamous Epith Cells Not seen (0-5) /hpf Urine Bacteria Few (FEW) /hpf Urine Mucus Few (FEW) /hpf Influenza Type A RNA (NEGATIVE) Influenza Type B RNA (NEGATIVE) SARS-CoV-2 RNA (YARELIS) (NEGATIVE) 09/02/20 09/02/20 09/02/20 Range/Units 04:07 06:00 06:00 WBC 24.42 H (4.23-9.07) K/mm3 RBC 4.89 (4.63-6.08) M/mm3 Hgb 14.9 D (13.7-17.5) gm/dl Hct 42.9 (40.1-51.0) % MCV 87.7 (79.0-92.2) fl MCH 30.5 (25.7-32.2) pg MCHC 34.7 (32.2-35.5) g/dl RDW Std Deviation 44.0 H (35.1-43.9) fL Plt Count 399 H (163-337) K/mm3 MPV 9.2 L (9.4-12.3) fl Neut % (Auto) 79.2 H (34.0-67.9) % Lymph % (Auto) 10.6 L (21.8-53.1) % [place] % (Auto) 9.7 (5.3-12.2) % Eos % (Auto) 0 L (0.8-7.0) Baso % (Auto) 0.1 (0.1-1.2) % Neut # (Auto) 19.35 H (1.78-5.38) K/mm3 Lymph # (Auto) 2.58 (1.32-3.57) K/mm3 [place] # (Auto) 2.36 H (0.30-0.82) K/mm3 Eos # (Auto) 0.01 L (0.04-0.54) K/mm3 Baso # (Auto) 0.02 (0.01-0.08) K/mm3 Manual Slide Review Abnormal smear Sodium 136 (136-145) mEq/L Potassium 3.6 (3.5-5.1) mEq/L Chloride 98 (98-107) mEq/L Carbon Dioxide 29 (21-32) mEq/L Anion Gap 12.6 (5-15) BUN 12 (7-18) mg/dL Creatinine 1.1 (0.7-1.3) mg/dL Est Cr Clr Drug Dosing 90.14 mL/min Estimated GFR (MDRD) > 60 (>60) mL/min BUN/Creatinine Ratio 10.9 L (14-18) Glucose 128 H (70-99) mg/dL Lactic Acid (0.4-2.0) mmol/L Calcium 8.7 (8.5-10.1) mg/dL Total Bilirubin (0.2-1.0) mg/dL AST (15-37) U/L ALT (16-63) U/L Alkaline Phosphatase (46-116) U/L Troponin I < 0.017 (0.00-0.056) ng/mL Total Protein (6.4-8.2) g/dl Albumin (3.4-5.0) g/dl Globulin gm/dL Albumin/Globulin Ratio (1-2) Lipase (73-393) U/L Urine Color (Yellow) Urine Appearance (Clear) Urine pH (5.0-8.0) Ur Specific [place] (1.005-1.030) Urine Protein (Negative) Urine Glucose (UA) (Negative) Urine Ketones (Negative) Urine Occult Blood (Negative) Urine Nitrite (Negative) Urine Bilirubin (Negative) Urine Urobilinogen (0.2-1.0) Ur Leukocyte Esterase (Negative) Urine RBC (0-5) /hpf Urine WBC (0-5) /hpf Ur Squamous Epith Cells (0-5) /hpf Urine Bacteria (FEW) /hpf Urine Mucus (FEW) /hpf Influenza Type A RNA (NEGATIVE) Influenza Type B RNA (NEGATIVE) SARS-CoV-2 RNA (YARELIS) (NEGATIVE) 09/02/20 Range/Units 06:00 WBC (4.23-9.07) K/mm3 RBC (4.63-6.08) M/mm3 Hgb (13.7-17.5) gm/dl Hct (40.1-51.0) % MCV (79.0-92.2) fl MCH (25.7-32.2) pg MCHC (32.2-35.5) g/dl RDW Std Deviation (35.1-43.9) fL Plt Count (163-337) K/mm3 MPV (9.4-12.3) fl Neut % (Auto) (34.0-67.9) % Lymph % (Auto) (21.8-53.1) % [place] % (Auto) (5.3-12.2) % Eos % (Auto) (0.8-7.0) Baso % (Auto) (0.1-1.2) % Neut # (Auto) (1.78-5.38) K/mm3 Lymph # (Auto) (1.32-3.57) K/mm3 [place] # (Auto) (0.30-0.82) K/mm3 Eos # (Auto) (0.04-0.54) K/mm3 Baso # (Auto) (0.01-0.08) K/mm3 Manual Slide Review Sodium (136-145) mEq/L Potassium (3.5-5.1) mEq/L Chloride (98-107) mEq/L Carbon Dioxide (21-32) mEq/L Anion Gap (5-15) BUN (7-18) mg/dL Creatinine (0.7-1.3) mg/dL Est Cr Clr Drug Dosing mL/min Estimated GFR (MDRD) (>60) mL/min BUN/Creatinine Ratio (14-18) Glucose (70-99) mg/dL Lactic Acid 1.5 (0.4-2.0) mmol/L Calcium (8.5-10.1) mg/dL Total Bilirubin (0.2-1.0) mg/dL AST (15-37) U/L ALT (16-63) U/L Alkaline Phosphatase (46-116) U/L Troponin I (0.00-0.056) ng/mL Total Protein (6.4-8.2) g/dl Albumin (3.4-5.0) g/dl Globulin gm/dL Albumin/Globulin Ratio (1-2) Lipase (73-393) U/L Urine Color (Yellow) Urine Appearance (Clear) Urine pH (5.0-8.0) Ur Specific [place] (1.005-1.030) Urine Protein (Negative) Urine Glucose (UA) (Negative) Urine Ketones (Negative) Urine Occult Blood (Negative) Urine Nitrite (Negative) Urine Bilirubin (Negative) Urine Urobilinogen (0.2-1.0) Ur Leukocyte Esterase (Negative) Urine RBC (0-5) /hpf Urine WBC (0-5) /hpf Ur Squamous Epith Cells (0-5) /hpf Urine Bacteria (FEW) /hpf Urine Mucus (FEW) /hpf Influenza Type A RNA (NEGATIVE) Influenza Type B RNA (NEGATIVE) SARS-CoV-2 RNA (YARELIS) (NEGATIVE) Result Diagrams: 09/02/20 06:00 09/02/20 06:00 Sepsis Event Note - Evaluation Sepsis Screening Result: Severe Sepsis Risk - Focused Exam Vital Signs: Vital Signs Temp Pulse Pulse Resp BP BP Pulse Ox 09/02/20 06:00 83 16 168/118 H 98 09/02/20 03:41 98 189/135 H 09/02/20 03:30 100 189/135 H 09/02/20 03:00 104 H 190/130 H 09/02/20 02:30 102 H 16 208/121 H 6 L 09/02/20 01:25 106 H 16 189/125 H 92 L 09/01/20 23:32 35.7 C L 91 18 197/143 H 100 - Problem List (1) Hypertensive urgency SNOMED Code(s): 750045192 ICD Code: I16.0 - HYPERTENSIVE URGENCY Status: Acute Priority: High Current Visit: Yes (2) Bronchitis SNOMED Code(s): 94984690 ICD Code: J40 - BRONCHITIS, NOT SPECIFIED ACUTE OR CHRONIC Status: Acute Priority: High Current Visit: Yes (3) Leukocytosis SNOMED Code(s): 538076282, 378239526 ICD Code: D72.829 - ELEVATED WHITE BLOOD CELL COUNT, UNSPECIFIED Status: Acute Priority: High Current Visit: Yes Qualifiers: Leukocytosis type: bandemia Qualified Code(s): D72.825 - Bandemia (4) Type 2 diabetes mellitus without complications SNOMED Code(s): 230290790 ICD Code: E11.9 - TYPE 2 DIABETES MELLITUS WITHOUT COMPLICATIONS Status: Chronic Priority: High Current Visit: Yes Qualifiers: 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 use Qualified Code(s): E11.9 - Type 2 diabetes mellitus without complications Problem List Initiated/Reviewed/Updated: Yes Orders Last 24hrs: Active Orders 24 hr Category Date Time Status Patient Status [ADT] Stat ADT 09/02/20 06:29 Active EKG Documentation Completion [RC] STAT Care 09/02/20 00:07 Active CULTURE BLOOD [BC] Stat Lab 09/02/20 00:25 Received CULTURE BLOOD [BC] Stat Lab 09/02/20 00:39 Received UA W/OLIVIA RFLX IF INDICATED [URIN] Stat Lab 09/02/20 04:59 Ordered Lactated Ringers [Ringers, Lactated] 1,000 ml Med 09/02/20 00:15 Active IV ASDIRECTED Sodium Chloride 0.9% [Normal Saline] 1,000 ml Med 09/02/20 06:45 Active IV ASDIRECTED cefTRIAXone [Rocephin] 2 gm Med 09/02/20 06:45 Active Sodium Chloride 0.9% [Normal Saline] 100 ml IV Q24H Blood Culture x2 Reflex Set [OM.PC] Stat Oth 09/02/20 00:12 Ordered Medication Orders Lactated Ringer's (Ringers, Lactated) 1,000 mls @ 125 mls/hr IV ASDIRECTED [facility] Last Admin: 09/02/20 00:08 Dose: 125 mls/hr Documented by: ANGELITA Ceftriaxone Sodium 2 gm/ (Sodium Chloride) 100 mls @ 200 mls/hr IV Q24H [facility] Last Admin: 09/02/20 06:55 Dose: 200 mls/hr Documented by: ANUP Sodium Chloride (Normal Saline) 1,000 mls @ 125 mls/hr IV ASDIRECTED [facility] Last Admin: 09/02/20 07:51 Dose: 125 mls/hr Documented by: ALBARO Assessment/Plan Comment:: The patient is a 49-year-old gentleman who has been admitted to observation due to his hypertensive urgency. I have restarted all the patient's outpatient medications for his hypertension. The patient has leukocytosis with bandemia an d has on examination bronchitis. Because of this the patient will be kept on Rocephin 2 g IV on a daily basis. I have also ordered breathing treatments. The patient is a smoker but he has refused a nicotine patch. The patient will be kept in telemetry. His vital signs will be monitored every 4 hours and his medications will be adjusted as necessary to help control his hypertension. The patient has been placed on a heart healthy/constant carb diet with regards to his diabetes. I have also ordered blood sugar checks 3 times daily with meals. He is on insulin sliding scale low-dose. I have also ordered a hemoglobin A1c. The patient should be appropriate for discharge in 1 to 2 days depending upon his symptoms. - Mortality Measure Prognosis:: Good
[2020-09-02] MEDS ORDERED: Albuterol 6.7 GM Inhaler INH PRN (07:53)
[2020-09-02] MEDS ORDERED: Acetaminophen 325 MG Tab PO PRN (07:54)
[2020-09-02] MEDS ORDERED: Docusate Sodium 100 MG Cap PO PRN (07:54)
[2020-09-02] MEDS ORDERED: Ondansetron 4 MG Tab.DIS PO PRN (07:54)
[2020-09-02] MEDS ORDERED: oxyCODONE 5 MG Tab PO PRN (07:54)
[2020-09-02] MEDS ORDERED: Pantoprazole 40 MG in Sodium Chloride 0.9% 100 ML IV SCH (09:00)
[2020-09-02] MEDS: Aspirin 81 MG Tab.Chew PO SCH ×2 (09:53→20:12)
[2020-09-02] MEDS: Metoprolol Tartrate 25 MG Tab PO SCH (09:53)
[2020-09-02] MEDS: Pantoprazole 40 MG Vial IV SCH ×2 (09:55→20:13)
[2020-09-02] MEDS: metFORMIN 500 MG Tab PO SCH ×2 (09:55→20:12)
[2020-09-02] MEDS: atorvaSTATin 20 MG Tab PO SCH (09:55)
[2020-09-02] MEDS: Hydrochlorothiazide 25 MG Tab PO SCH (09:55)
[2020-09-02] MEDS: Clopidogrel 75 MG Tab PO SCH (09:55)
[2020-09-02] MEDS: Sucralfate Suspension 1 GM/10 ML Cup PO SCH ×4 (11:47→21:24)
[2020-09-02] MEDS ORDERED: cloNIDine 0.1 MG Tab PO ONE (11:58)
[2020-09-02] MEDS: Insulin Regular, Human 100 Units/ML 3 ML Vial SUBCUT SCH ×2 (12:00→18:13)
[2020-09-02] MEDS: Phenol 1.4% Oral Spray 177 ML Bottle MUCMEM PRN ×2 (12:06→17:44)
[2020-09-02] MEDS ORDERED: Diphenhydramine/Lidocaine/MagAl/Simethicone 119 ML Bottle PO PRN (17:00)
[2020-09-02] MEDS ORDERED: Metoprolol Tartrate 25 MG Tab PO SCH (18:00)
[2020-09-02] MEDS ORDERED: Amitriptyline 25 MG Tab PO SCH (21:00)
[2020-09-03] MEDS: cefTRIAXone 2 GM in Sodium Chloride 0.9% 100 ML IV SCH (06:28)
[2020-09-03] MEDS: Insulin Regular, Human 100 Units/ML 3 ML Vial SUBCUT SCH ×2 (06:29→13:11)
[2020-09-03] MEDS: Sucralfate Suspension 1 GM/10 ML Cup PO SCH ×2 (06:29→11:54)
[2020-09-03] MEDS: metFORMIN 500 MG Tab PO SCH (08:16)
[2020-09-03] MEDS: atorvaSTATin 20 MG Tab PO SCH (08:16)
[2020-09-03] MEDS: Aspirin 81 MG Tab.Chew PO SCH (08:17)
[2020-09-03] MEDS: Pantoprazole 40 MG Vial IV SCH (08:17)
[2020-09-03] MEDS: Metoprolol Tartrate 25 MG Tab PO SCH (08:17)
[2020-09-03] MEDS: Hydrochlorothiazide 25 MG Tab PO SCH (08:17)
[2020-09-03] MEDS: Clopidogrel 75 MG Tab PO SCH (08:17)
[2020-09-03] MEDS: Sodium Chloride 0.9% 1,000 ML IV SCH (08:42)
--- NOTE | 2020-09-03 09:29 | PCM.CONS ---
H&P History of Present Illness - General Date of Service: 09/03/20 Admit Problem/Dx: Admission Diagnosis/Problem Admission Diagnosis/Problem Dehydration Source of Information: Patient, Old Records History Limitations: Reports: No Limitations - History of Present Illness Initial Comments - Free Text/Narative: Mr. Stone is a 49 yo man with documented history of CVA, COPD, DM and hiatal hernia with GERD who developed sudden onset severe epigastric pain four days ago. He presented to the ER two days ago with findings of mild dehydration, impressive leukocytosis of 28,000, and uncontrolled hypertension. He was admitted for fluid resuscitation and management of hypertension. Blood cultures have no growth to date, urinalysis shows no evidence of urinary infection, and chest x-ray and subsequent CT chest PE protocol show no evidence of pneumonia. The patient was started on empiric ceftriaxone for presumed bronchitis. He last had upper endoscopy over 20 years ago when he was diagnosed with GERD. He takes acid suppression medication regularly and has never had symptoms like this before. He has been unable to drink water or eat ice chips- he reports dysphagia, abdominal pain and nausea after swallowing, and describes near immediate regurgitation after swallowing. He denies hematemesis. He was able to drink a few sips this morning without a problem. He is feeling better since admission, though he still has the mid-chest and epigastric pain. He reports an appetite. He denies any recent recreational drug use. COVID test on 09/01 is negative. - Related Data Allergies/Adverse Reactions: Allergies Allergy/AdvReac Type Severity Reaction Status Date / Time Penicillins Allergy Rash Verified 09/01/20 23:36 Home Medications: Home Meds Metoprolol Tartrate 25 mg PO QAM 06/23/18 [History] hydroCHLOROthiazide [Hydrochlorothiazide] 25 mg PO DAILY #30 tab 06/23/18 [Rx] Metoprolol Tartrate 50 mg PO QPM 11/25/18 [History] Albuterol Sulfate [Albuterol Sulfate Hfa] 1 puff INH Q4H PRN 02/17/20 [History] Amitriptyline [Elavil] 75 mg PO BEDTIME 02/17/20 [History] Aspirin 81 mg PO DAILY 02/17/20 [History] Clopidogrel Bisulfate [Plavix] 75 mg PO DAILY 02/17/20 [History] atorvaSTATin [Lipitor] 20 mg PO DAILY 02/17/20 [History] metFORMIN HCl [Metformin HCl] 1,000 mg PO BID 02/17/20 [History] Omeprazole 20 mg PO QAM 09/02/20 [History] Past Medical History HEENT History: Reports: Allergic Rhinitis, Cataract, Hard of Hearing Other HEENT History: 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, tinnitis, wears glasses Cardiovascular History: Reports: High Cholesterol, Hypertension Other Cardiovascular History: repair of hole in heart, heart disease, vertebrobasilar artery syndrome, PFO with repair Respiratory History: Reports: COPD, Sleep Apnea Other Respiratory History: panlobular emphysema Gastrointestinal History: Reports: GERD, Hiatal Hernia Genitourinary History: Reports: None [employer] 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: Reports: None Musculoskeletal History: Reports: Arthritis Other Musculoskeletal History: 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 Neurological History: Reports: CVA, Headaches, Chronic Other Neuro History: cephalgia Psychiatric History: Reports: Anxiety, Depression Endocrine/Metabolic History: Reports: Diabetes, Type II Hematologic History: Reports: None Immunologic History: Reports: None Oncologic (Cancer) History: Reports: None Dermatologic History: Reports: None - Infectious Disease History Infectious Disease History: Reports: Chicken Pox - Past Surgical History Head Surgeries/Procedures: Reports: None HEENT Surgical History: Reports: None Cardiovascular Surgical History: Reports: Other (See Below) Other Cardiovascular Surgeries/Procedures: foramen ovale surgical repair Respiratory Surgical History: Reports: None GI Surgical History: Reports: Hernia, Inguinal Male Surgical History: Reports: Vasectomy Endocrine Surgical History: Reports: None Neurological Surgical History: Reports: None Musculoskeletal Surgical History: Reports: Arthroscopic Knee, Arthroscopic Procedure Oncologic Surgical History: Reports: None Dermatological Surgical History: Reports: None Social & Family History - Tobacco Use Tobacco Use Status *Q: Current Every Day Tobacco User Years of Tobacco use: 30 Packs/Tins Daily: 0.5 Tobacco Use Comment: Patient refused nicotine patch at this time - Caffeine Use Caffeine Use: Reports: Coffee Caffeine Use Comment: Patient reports he drinks about 3 cups coffee per day - Alcohol Use Date of Last Drink: 08/29/20 - Recreational Drug Use Recreational Drug Use: Yes Recreational Drug Type: Reports: Marijuana/Hashish Recreational Drug Use Frequency: Daily H&P Review of Systems - Review of Systems: Review Of Systems: See Below General: Reports: Malaise HEENT: Reports: No Symptoms Pulmonary: Reports: No Symptoms Cardiovascular: Reports: Chest Pain Gastrointestinal: Reports: Abdominal Pain, Difficulty Swallowing, Nausea, Vomiting Genitourinary: Reports: No Symptoms Musculoskeletal: Reports: No Symptoms Skin: Reports: No Symptoms Psychiatric: Reports: No Symptoms Neurological: Reports: No Symptoms Hematologic/Lymphatic: Reports: No Symptoms Immunologic: Reports: No Symptoms Exam - Exam Exam: See Below - Vital Signs Vital Signs: Last Vital Signs Temp 36.4 C 09/03/20 08:05 Pulse 76 09/03/20 08:17 Resp 20 09/03/20 08:05 BP 176/127 H 09/03/20 08:17 Pulse Ox 98 09/03/20 08:14 Weight: 91.58 kg - Exam General: Alert, Oriented, Cooperative, Other (disheveled) HEENT: Conjunctiva Clear Neck: Supple, Trachea Midline Lungs: Normal Respiratory Effort Cardiovascular: Regular Rate, Regular Rhythm GI/Abdominal Exam: Soft, Non-Tender, No Mass Extremities: Normal Inspection Skin: Warm, Dry, Other (scattered tattoos) Neuro Extensive - Mental Status: Alert, Oriented x3 Psychiatric: Alert - Patient Data Lab Results Last 24 hrs: Laboratory Results - last 24 hr 09/02/20 09/02/20 09/03/20 Range/Units 11:07 17:24 05:10 WBC 13.48 H (4.23-9.07) K/mm3 RBC 4.41 L (4.63-6.08) M/mm3 Hgb 13.3 L D (13.7-17.5) gm/dl Hct 39.4 L (40.1-51.0) % MCV 89.3 (79.0-92.2) fl MCH 30.2 (25.7-32.2) pg MCHC 33.8 (32.2-35.5) g/dl RDW Std Deviation 43.7 (35.1-43.9) fL Plt Count 325 (163-337) K/mm3 MPV 9.7 (9.4-12.3) fl Neut % (Auto) 71.4 H (34.0-67.9) % Lymph % (Auto) 18.3 L (21.8-53.1) % [place] % (Auto) 9.0 (5.3-12.2) % Eos % (Auto) 0.7 L (0.8-7.0) Baso % (Auto) 0.4 (0.1-1.2) % Neut # (Auto) 9.63 H (1.78-5.38) K/mm3 Lymph # (Auto) 2.47 (1.32-3.57) K/mm3 [place] # (Auto) 1.21 H (0.30-0.82) K/mm3 Eos # (Auto) 0.09 (0.04-0.54) K/mm3 Baso # (Auto) 0.05 (0.01-0.08) K/mm3 Sodium (136-145) mEq/L Potassium (3.5-5.1) mEq/L Chloride (98-107) mEq/L Carbon Dioxide (21-32) mEq/L Anion Gap (5-15) BUN (7-18) mg/dL Creatinine (0.7-1.3) mg/dL Est Cr Clr Drug Dosing mL/min Estimated GFR (MDRD) (>60) mL/min BUN/Creatinine Ratio (14-18) Glucose (70-99) mg/dL POC Glucose 91 91 (70-99) mg/dL Calcium (8.5-10.1) mg/dL Magnesium (1.8-2.4) mg/dL Total Bilirubin (0.2-1.0) mg/dL AST (15-37) U/L ALT (16-63) U/L Alkaline Phosphatase (46-116) U/L Total Protein (6.4-8.2) g/dl Albumin (3.4-5.0) g/dl Globulin gm/dL Albumin/Globulin Ratio (1-2) 09/03/20 09/03/20 Range/Units 05:10 06:05 WBC (4.23-9.07) K/mm3 RBC (4.63-6.08) M/mm3 Hgb (13.7-17.5) gm/dl Hct (40.1-51.0) % MCV (79.0-92.2) fl MCH (25.7-32.2) pg MCHC (32.2-35.5) g/dl RDW Std Deviation (35.1-43.9) fL Plt Count (163-337) K/mm3 MPV (9.4-12.3) fl Neut % (Auto) (34.0-67.9) % Lymph % (Auto) (21.8-53.1) % [place] % (Auto) (5.3-12.2) % Eos % (Auto) (0.8-7.0) Baso % (Auto) (0.1-1.2) % Neut # (Auto) (1.78-5.38) K/mm3 Lymph # (Auto) (1.32-3.57) K/mm3 [place] # (Auto) (0.30-0.82) K/mm3 Eos # (Auto) (0.04-0.54) K/mm3 Baso # (Auto) (0.01-0.08) K/mm3 Sodium 133 L (136-145) mEq/L Potassium 3.8 (3.5-5.1) mEq/L Chloride 101 (98-107) mEq/L Carbon Dioxide 23 (21-32) mEq/L Anion Gap 12.8 (5-15) BUN 14 (7-18) mg/dL Creatinine 1.1 (0.7-1.3) mg/dL Est Cr Clr Drug Dosing 90.14 mL/min Estimated GFR (MDRD) > 60 (>60) mL/min BUN/Creatinine Ratio 12.7 L (14-18) Glucose 94 (70-99) mg/dL POC Glucose 85 (70-99) mg/dL Calcium 7.9 L (8.5-10.1) mg/dL Magnesium 1.9 (1.8-2.4) mg/dL Total Bilirubin 0.7 (0.2-1.0) mg/dL AST 15 (15-37) U/L ALT 20 (16-63) U/L Alkaline Phosphatase 57 (46-116) U/L Total Protein 6.2 L (6.4-8.2) g/dl Albumin 3.0 L (3.4-5.0) g/dl Globulin 3.2 gm/dL Albumin/Globulin Ratio 0.9 L (1-2) Result Diagrams: 09/03/20 05:10 09/03/20 05:10 Camilo Results Last 24 hrs: Microbiology 09/02/20 00:39 Aerobic Blood Culture - Preliminary Blood - Venous - Lab Draw NO GROWTH AFTER 1 DAY Anaerobic Blood Culture - Preliminary NO GROWTH AFTER 1 DAY 09/02/20 00:25 Aerobic Blood Culture - Preliminary Blood - Venous NO GROWTH AFTER 1 DAY Anaerobic Blood Culture - Preliminary NO GROWTH AFTER 1 DAY Sepsis Event Note - Evaluation Sepsis Screening Result: No Definite Risk - Focused Exam Vital Signs: Vital Signs Temp Temp Pulse Pulse Resp BP BP 09/03/20 08:17 76 176/127 H 09/03/20 08:14 77 172/127 H 09/03/20 08:05 36.4 C 80 20 168/111 H 09/03/20 04:34 36.7 C 76 18 144/99 H 09/03/20 01:00 36.9 C 73 18 136/100 H 09/03/20 00:56 136/100 H Pulse Ox 09/03/20 08:17 09/03/20 08:14 98 09/03/20 08:05 97 09/03/20 04:34 98 09/03/20 01:00 94 L 09/03/20 00:56 *Q Meaningful Use (ADM) - VTE *Q VTE Pharmacological Contraindications *Q: Risk of Bleeding Consult PN Assessment/Plan Procedures: Procedures AIRWAY INHALATION TREATMENT (02/21/20) ASSAY OF LIPASE (10/21/15) ASSAY OF TROPONIN QUANT (09/22/14) C-REACTIVE PROTEIN (10/21/15) CHEST X-RAY 2VW FRONTAL&LATL (09/22/14) COMPLETE CBC W/AUTO DIFF WBC (10/21/15) COMPREHEN METABOLIC PANEL (02/21/20) CT ABD & PELV W/CONTRAST (10/21/15) CT HEAD/BRAIN W/O DYE (12/21/15) ELECTROCARDIOGRAM TRACING (11/06/15) EMERGENCY DEPT VISIT (06/23/18) EMERGENCY DEPT VISIT (12/21/15) EMERGENCY DEPT VISIT (11/06/15) EMERGENCY DEPT VISIT (10/21/15) KNEE ARTHROSCOPY/SURGERY (01/28/19) KNEE ARTHROSCOPY/SURGERY (11/26/18) MR-STAPH DNA AMP PROBE (01/28/19) MRI JNT OF LWR EXTRE W/O DYE (12/23/18) OFFICE O/P EST MINIMAL PROB (02/17/20) ROUTINE VENIPUNCTURE (02/21/20) RPR UMBIL DEVORA REDUC > 5 YR (02/21/20) THER/PROPH/DIAG INJ IV PUSH (12/21/15) TX/PRO/DX INJ NEW DRUG ADDON (12/21/15) Problem List Initiated/Reviewed/Updated: Yes My Orders Last 24 Hours: Dysphagia, epigastric pain, regurgitation in patient with history of hiatal hernia and GERD. Sudden onset of symptoms associated with leukocytosis, which have improved with resuscitation and empiric antibiotics. Symptoms are likely related to uncontrolled reflux esophagitis. Recommended continued medical management of acid reflux and CT imaging of the abdomen with oral and IV contrast. Await results prior to resuming regular diet. The patient may benefit from diagnostic upper endoscopy but this is not emergent. Timing for endoscopy will be determined based on imaging results and patient symptoms. Plan: Recommend CT abdomen with PO and IV contrast prior to planning diagnostic upper endoscopy. NPO for now, continue current medical management of GERD.
[2020-09-03] MEDS ORDERED: Diatrizoate Meglumine/Diatrizoate Sodium 37% 120 ML Bottle PO ONE (09:36)
[2020-09-03] MEDS ORDERED: Iopamidol 612 MG/ML 100 ML Bottle IVPUSH ONE (09:36)
[2020-09-03] MEDS ORDERED: Sodium Chloride 0.9% 10 ML Syringe FLUSH PRN (09:36)
[2020-09-03 11:52] VITALS: BP 143/99; PULSE 70
--- NOTE | 2020-09-03 13:30 | PCM.DCSUM1 ---
Discharge Summary - Hospital Course HPI Initial Comments: The patient was admitted secondary to hypertensive urgency. Diagnosis: Stroke: No - Discharge Data Discharge Date: 09/03/20 Discharge Disposition: Home, Self-Care 01 Condition: Good - Referral to Home Health Primary Care Physician: PCP None - Discharge Diagnosis/Problem(s) (1) Hypertensive urgency SNOMED Code(s): 787572011 ICD Code: I16.0 - HYPERTENSIVE URGENCY Status: Resolved Priority: High Current Visit: Yes (2) Bronchitis SNOMED Code(s): 86795578 ICD Code: J40 - BRONCHITIS, NOT SPECIFIED ACUTE OR CHRONIC Status: Acute Priority: High Current Visit: Yes (3) Leukocytosis SNOMED Code(s): 153395287, 906235251 ICD Code: D72.829 - ELEVATED WHITE BLOOD CELL COUNT, UNSPECIFIED Status: Acute Priority: High Current Visit: Yes Qualifiers: Leukocytosis type: bandemia Qualified Code(s): D72.825 - Bandemia (4) Type 2 diabetes mellitus without complications SNOMED Code(s): 381552934 ICD Code: E11.9 - TYPE 2 DIABETES MELLITUS WITHOUT COMPLICATIONS Status: Chronic Priority: High Current Visit: Yes Qualifiers: Diabetes mellitus residential insulin use: without residential use Qualified Code(s): E11.9 - Type 2 diabetes mellitus without complications - Patient Summary/Data Consults: Consultations 09/03/20 07:38 Consult to Physician [CONS] Routine Hospital Course: The patient is a 49-year-old gentleman who had presented to the emergency department with a chief complaint of fatigue. He was found to have very poorly controlled high blood pressure. The patient's diastolic blood pressure has been markedly elevated and refractory to treatment. The patient was fairly well controlled in the emergency department and he was admitted for further evaluation and treatment. The patient reports that he had been traveling to [place] and his luggage got lost and he spent an extra night in [place] and essentially had been without his medications for approximately 3 days. In the next 3 days prior to admission the patient had developed nausea and vomiting and had been unable to keep his medications down. The patient also was noted to have chest pain which had not responded to any GI cocktails or other agents for esophagitis. In the evening and into the morning of September 03, 2020 the patient had developed chest pain. EKG was also obtained which showed that the patient had a normal sinus rhythm and troponins were undetectable. The patient had been prescribed the patient had a CT scan of his chest in order to help rule out cardiac tamponade or aortic stenosis or pulmonary emboli. Due to the patient's narrowed pulse pressure. This did not show any evidence of cardiac tamponade. The patient also had been placed on clonidine to help with his hypertensive urgency. On presentation to the emergency department the patient's blood pressure was 197/143 and by day of discharge this had improved to 148/98. The patient also continued to have episodes where he felt like food was getting stuck in his throat and Dr. Cazares general surgeon was consulted and as a result of this consultation CT scan of the patient's abdomen was obtained which showed a small hiatal hernia but was otherwise unremarkable. The patient was also placed on Carafate as well as proton pump inhibitor and had been recommended also to take an H2 mitesh. The patient had been given prescriptions for clonidine 0.2 mg tablets p.o. every 8 hours as needed for systolic blood pressure greater than 150. The patient also had been prescribed famotidine 40 mg p.o. twice daily as well as Carafate 1 g 3 times daily. The patient had been tolerating diet. He had been also able to tolerate oral contrast for the CT scan of his abdomen. The patient has also been active. Patient has been recommended to go home with heart healthy diet and activity as tolerated. The patient has been discharged from acute hospitalization with the recommendations listed above. - Patient Instructions Diet: Heart Healthy Diet Activity: As Tolerated - Discharge Plan *PRESCRIPTION DRUG MONITORING PROGRAM REVIEWED*: No *COPY OF PRESCRIPTION DRUG MONITORING REPORT IN PATIENT MATT: No Prescriptions/Med Rec: Sucralfate [Carafate] 1 gm PO Q6HR #60 tab cloNIDine [Catapres] 0.2 mg PO Q8H PRN #90 tab PRN Reason: Hypertension Famotidine 40 mg PO BID #30 oral.susp Home Medications: Home Meds Metoprolol Tartrate 25 mg PO QAM 06/23/18 [History] hydroCHLOROthiazide [Hydrochlorothiazide] 25 mg PO DAILY #30 tab 06/23/18 [Rx] Metoprolol Tartrate 50 mg PO QPM 11/25/18 [History] Albuterol Sulfate [Albuterol Sulfate Hfa] 1 puff INH Q4H PRN 11/12/20 [History] Amitriptyline [Elavil] 75 mg PO BEDTIME 02/17/20 [History] Aspirin 81 mg PO DAILY 02/17/20 [History] Clopidogrel Bisulfate [Plavix] 75 mg PO DAILY 02/17/20 [History] atorvaSTATin [Lipitor] 20 mg PO DAILY 02/17/20 [History] Omeprazole 20 mg PO QAM 09/02/20 [History] Famotidine 40 mg PO BID #30 oral.susp 09/03/20 [Rx] Sucralfate [Carafate] 1 gm PO Q6HR #60 tab 09/03/20 [Rx] cloNIDine [Catapres] 0.2 mg PO Q8H PRN #90 tab 09/03/20 [Rx] metFORMIN HCl [Metformin HCl] 1,000 mg PO BID #0 09/03/20 [Rx] Oxygen Therapy Mode: Room Air Patient Handouts: Hypertension, Adult Forms: ED Department Discharge Referrals: PCP,None [Primary Care Provider] - Keven Cazares MD [Physician] - - Discharge Summary/Plan Comment DC Time >30 min.: Yes - General Info Date of Service: 09/03/20 Admission Dx/Problem (Free Text: Admission Diagnosis/Problem Admission Diagnosis/Problem Dehydration Subjective Update: Overall, the patient is improved. He has been recommended to follow-up with general surgeon. Functional Status: Reports: Pain Controlled, Tolerating Diet - Review of Systems General: Reports: No Symptoms HEENT: Reports: No Symptoms Pulmonary: Reports: No Symptoms Cardiovascular: Reports: No Symptoms Gastrointestinal: Reports: No Symptoms Genitourinary: Reports: No Symptoms Musculoskeletal: Reports: No Symptoms Skin: Reports: No Symptoms Neurological: Reports: No Symptoms Psychiatric: Reports: No Symptoms - Patient Data Vitals - Most Recent: Last Vital Signs Temp 36.4 C 09/03/20 11:16 Pulse 70 09/03/20 11:16 Resp 20 09/03/20 11:16 BP 143/99 H 09/03/20 11:16 Pulse Ox 97 09/03/20 11:16 Weight - Most Recent: 91.58 kg I&O - Last 24 hours: Intake & Output 09/02/20 09/03/20 09/03/20 22:59 06:59 14:59 Intake Total 1300 2150 Output Total 925 800 Balance 375 1350 Lab Results - Last 24 hrs: Laboratory Results - last 24 hr 05/29/21 05/30/21 05/30/21 Range/Units 17:24 05:10 05:10 WBC 13.48 H (4.23-9.07) K/mm3 RBC 4.41 L (4.63-6.08) M/mm3 Hgb 13.3 L D (13.7-17.5) gm/dl Hct 39.4 L (40.1-51.0) % MCV 89.3 (79.0-92.2) fl MCH 30.2 (25.7-32.2) pg MCHC 33.8 (32.2-35.5) g/dl RDW Std Deviation 43.7 (35.1-43.9) fL Plt Count 325 (163-337) K/mm3 MPV 9.7 (9.4-12.3) fl Neut % (Auto) 71.4 H (34.0-67.9) % Lymph % (Auto) 18.3 L (21.8-53.1) % [place] % (Auto) 9.0 (5.3-12.2) % Eos % (Auto) 0.7 L (0.8-7.0) Baso % (Auto) 0.4 (0.1-1.2) % Neut # (Auto) 9.63 H (1.78-5.38) K/mm3 Lymph # (Auto) 2.47 (1.32-3.57) K/mm3 [place] # (Auto) 1.21 H (0.30-0.82) K/mm3 Eos # (Auto) 0.09 (0.04-0.54) K/mm3 Baso # (Auto) 0.05 (0.01-0.08) K/mm3 Sodium 133 L (136-145) mEq/L Potassium 3.8 (3.5-5.1) mEq/L Chloride 101 (98-107) mEq/L Carbon Dioxide 23 (21-32) mEq/L Anion Gap 12.8 (5-15) BUN 14 (7-18) mg/dL Creatinine 1.1 (0.7-1.3) mg/dL Est Cr Clr Drug Dosing 90.14 mL/min Estimated GFR (MDRD) > 60 (>60) mL/min BUN/Creatinine Ratio 12.7 L (14-18) Glucose 94 (70-99) mg/dL POC Glucose 91 (70-99) mg/dL Calcium 7.9 L (8.5-10.1) mg/dL Magnesium 1.9 (1.8-2.4) mg/dL Total Bilirubin 0.7 (0.2-1.0) mg/dL AST 15 (15-37) U/L ALT 20 (16-63) U/L Alkaline Phosphatase 57 (46-116) U/L Total Protein 6.2 L (6.4-8.2) g/dl Albumin 3.0 L (3.4-5.0) g/dl Globulin 3.2 gm/dL Albumin/Globulin Ratio 0.9 L (1-2) 09/03/20 09/03/20 Range/Units 06:05 11:12 WBC (4.23-9.07) K/mm3 RBC (4.63-6.08) M/mm3 Hgb (13.7-17.5) gm/dl Hct (40.1-51.0) % MCV (79.0-92.2) fl MCH (25.7-32.2) pg MCHC (32.2-35.5) g/dl RDW Std Deviation (35.1-43.9) fL Plt Count (163-337) K/mm3 MPV (9.4-12.3) fl Neut % (Auto) (34.0-67.9) % Lymph % (Auto) (21.8-53.1) % [place] % (Auto) (5.3-12.2) % Eos % (Auto) (0.8-7.0) Baso % (Auto) (0.1-1.2) % Neut # (Auto) (1.78-5.38) K/mm3 Lymph # (Auto) (1.32-3.57) K/mm3 [place] # (Auto) (0.30-0.82) K/mm3 Eos # (Auto) (0.04-0.54) K/mm3 Baso # (Auto) (0.01-0.08) K/mm3 Sodium (136-145) mEq/L Potassium (3.5-5.1) mEq/L Chloride (98-107) mEq/L Carbon Dioxide (21-32) mEq/L Anion Gap (5-15) BUN (7-18) mg/dL Creatinine (0.7-1.3) mg/dL Est Cr Clr Drug Dosing mL/min Estimated GFR (MDRD) (>60) mL/min BUN/Creatinine Ratio (14-18) Glucose (70-99) mg/dL POC Glucose 85 89 (70-99) mg/dL Calcium (8.5-10.1) mg/dL Magnesium (1.8-2.4) mg/dL Total Bilirubin (0.2-1.0) mg/dL AST (15-37) U/L ALT (16-63) U/L Alkaline Phosphatase (46-116) U/L Total Protein (6.4-8.2) g/dl Albumin (3.4-5.0) g/dl Globulin gm/dL Albumin/Globulin Ratio (1-2) OLIVIA Results - Last 24 hrs: Microbiology 09/02/20 00:39 Aerobic Blood Culture - Preliminary Blood - Venous - Lab Draw NO GROWTH AFTER 1 DAY Anaerobic Blood Culture - Preliminary NO GROWTH AFTER 1 DAY 09/02/20 00:25 Aerobic Blood Culture - Preliminary Blood - Venous NO GROWTH AFTER 1 DAY Anaerobic Blood Culture - Preliminary NO GROWTH AFTER 1 DAY Med Orders - Current: Current Medications Acetaminophen (Acetaminophen 325 Mg Tab) 650 mg PO Q4H PRN PRN Reason: Pain (Mild 1-3)/fever Albuterol (Albuterol 6.7 Gm Inhaler) 0 gm INH Q4H PRN PRN Reason: Shortness of Breath Amitriptyline HCl (Amitriptyline 25 Mg Tab) 75 mg PO BEDTIME [facility] Last Admin: 09/02/20 20:12 Dose: 75 mg Documented by: Aspirin (Aspirin 81 Mg Tab.Chew) 81 mg PO BID [facility] Last Admin: 09/03/20 08:17 Dose: 81 mg Documented by: Atorvastatin Calcium (Atorvastatin 20 Mg Tab) 20 mg PO DAILY [facility] Last Admin: 09/03/20 08:16 Dose: 20 mg Documented by: Clopidogrel Bisulfate (Clopidogrel 75 Mg Tab) 75 mg PO DAILY [facility] Last Admin: 09/03/20 08:17 Dose: 75 mg Documented by: Diphenhydr/Magaldrate/Simeth/Lidoca (Diphenhydramine/Lidocaine/Magal/Simethicone 119 Ml Bottle) 30 ml PO Q2HR PRN PRN Reason: Acid reflux Last Admin: 09/02/20 17:53 Dose: 30 ml Documented by: Docusate Sodium (Docusate Sodium 100 Mg Cap) 100 mg PO BID PRN PRN Reason: Constipation Hydrochlorothiazide (Hydrochlorothiazide 25 Mg Tab) 25 mg PO DAILY [facility] Last Admin: 09/03/20 08:17 Dose: 25 mg Documented by: Ceftriaxone Sodium 2 gm/ (Sodium Chloride) 100 mls @ 200 mls/hr IV Q24H [facility] Last Admin: 09/03/20 06:28 Dose: 200 mls/hr Documented by: Sodium Chloride (Normal Saline) 1,000 mls @ 125 mls/hr IV ASDIRECTED [facility] Last Admin: 09/03/20 08:42 Dose: 125 mls/hr Documented by: Insulin Human Regular (Insulin Regular, Human 100 Units/Ml 3 Ml Vial) 0 unit SUBCUT TIDAC [facility]; Protocol Last Admin: 09/03/20 13:11 Dose: Not Given Documented by: Metoprolol Tartrate (Metoprolol Tartrate 25 Mg Tab) 25 mg PO QAM [facility] Last Admin: 09/03/20 08:17 Dose: 25 mg Documented by: Metoprolol Tartrate (Metoprolol Tartrate 25 Mg Tab) 50 mg PO QPM [facility] Last Admin: 09/02/20 17:51 Dose: 50 mg Documented by: Ondansetron HCl (Ondansetron 4 Mg Tab.Dis) 4 mg PO Q4H PRN PRN Reason: nausea, able to take PO Oxycodone HCl (Oxycodone 5 Mg Tab) 5 mg PO Q4H PRN PRN Reason: Pain (moderate 4-6) Pantoprazole Sodium (Pantoprazole 40 Mg Vial) 40 mg IV BID [facility] Last Admin: 09/03/20 08:17 Dose: 40 mg Documented by: Phenol/Menthol (Phenol 1.4% Oral [place] 177 Ml Bottle) 0 ml MUCMEM Q2H PRN PRN Reason: Sore Throat Last Admin: 09/02/20 17:44 Dose: 1 spray Documented by: Sodium Chloride (Sodium Chloride 0.9% 10 Ml Syringe) 10 ml FLUSH ONETIME PRN PRN Reason: Keep Vein Open Last Admin: 09/03/20 10:36 Dose: 10 ml Documented by: Sucralfate (Sucralfate Suspension 1 Gm/10 Ml Cup) 1 gm PO QIDACANDBED [facility] Last Admin: 09/03/20 11:54 Dose: 1 gm Documented by: Discontinued Medications Clonidine HCl (Clonidine 0.1 Mg Tab) 0.2 mg PO ONETIME ONE Stop: 09/02/20 11:59 Last Admin: 09/02/20 12:07 Dose: 0.2 mg Documented by: Al Hydroxide/Mg Hydroxide 30 (ml/ Lidocaine HCl 15 ml) 0 ml PO ONETIME ONE Stop: 09/02/20 00:03 Last Admin: 09/02/20 00:08 Dose: 30 ml Documented by: Diatrizoate Meglum/Diatrizoate Sod (Diatrizoate Meglumine/Diatrizoate Sodium 37% 120 Ml Bottle) 40 ml PO ONETIME ONE Stop: 09/03/20 09:37 Last Admin: 09/03/20 10:36 Dose: 40 ml Documented by: Famotidine (Famotidine 20 Mg/2 Ml Sdv) 40 mg IVPUSH ONETIME ONE Stop: 09/02/20 03:23 Last Admin: 09/02/20 03:41 Dose: 40 mg Documented by: Hydromorphone HCl (Hydromorphone 0.5 Mg/0.5 Ml Syringe) 0.5 mg IVPUSH ONETIME ONE Stop: 09/02/20 04:00 Last Admin: 09/02/20 04:08 Dose: 0.5 mg Documented by: Lactated Ringer's (Ringers, Lactated) 1,000 mls @ 125 mls/hr IV ASDIRECTED [facility] Last Admin: 09/02/20 00:08 Dose: 125 mls/hr Documented by: Lactated Ringer's (Ringers, Lactated) 500 mls @ 999 mls/hr IV .BOLUS ONE Stop: 09/02/20 01:27 Last Admin: 09/02/20 01:58 Dose: 999 mls/hr Documented by: Pantoprazole Sodium 40 mg/ (Sodium Chloride) 100 mls @ 200 mls/hr IV BID [facility] Iopamidol (Iopamidol 612 Mg/Ml 100 Ml Bottle) 100 ml IVPUSH ONETIME ONE Stop: 09/03/20 09:37 Last Admin: 09/03/20 10:36 Dose: 100 ml Documented by: Lorazepam (Lorazepam 2 Mg/Ml Sdv) 1 mg IVPUSH ONETIME ONE Stop: 09/02/20 00:05 Last Admin: 09/02/20 00:08 Dose: 1 mg Documented by: Metformin HCl (Metformin 500 Mg Tab) 1,000 mg PO BID MICHAELA Last Admin: 09/03/20 08:16 Dose: 1,000 mg Documented by: Metoprolol Tartrate (Metoprolol Tartrate 50 Mg Tab) 50 mg PO ONETIME ONE Stop: 09/02/20 03:25 Last Admin: 09/02/20 03:41 Dose: 50 mg Documented by: Ondansetron HCl (Ondansetron 4 Mg/2 Ml Sdv) 4 mg IVPUSH ONETIME ONE Stop: 09/02/20 00:02 Last Admin: 09/02/20 00:06 Dose: 4 mg Documented by: Ondansetron HCl (Ondansetron 4 Mg/2 Ml Sdv) 4 mg IVPUSH ONETIME ONE Stop: 09/02/20 04:01 Last Admin: 09/02/20 04:08 Dose: 4 mg Documented by: Pantoprazole Sodium (Pantoprazole 40 Mg Vial) 40 mg IVPUSH ONETIME ONE Stop: 09/02/20 01:47 Last Admin: 09/02/20 01:58 Dose: 40 mg Documented by: Sucralfate (Sucralfate Suspension 1 Gm/10 Ml Cup) 1 gm PO ONETIME ONE Stop: 09/02/20 01:47 Last Admin: 09/02/20 01:58 Dose: 1 gm Documented by: - Exam Quality Assessment: Denies: Supplemental Oxygen, DVT Prophylaxis General: Reports: Alert, Oriented, Cooperative HEENT: Reports: Pupils Equal, Pupils Reactive, EOMI, Mucous Membr. Moist/[place] Neck: Reports: Supple, Trachea Midline Lungs: Reports: Clear to Auscultation, Normal Respiratory Effort Cardiovascular: Reports: Regular Rate, Regular Rhythm GI/Abdominal Exam: Normal Bowel Sounds, Soft, Non-Tender, No Distention (Male) Exam: Deferred Rectal (Males) Exam: Deferred Back Exam: Reports: Normal Inspection, Full Range of Motion Extremities: Normal Inspection, Normal Range of Motion, No Pedal Edema Skin: Reports: Warm, Dry, Intact Neurological: Reports: No New Focal Deficit, Normal Gait, Normal Speech Psy/Mental Status: Reports: Alert, Normal Affect, Normal Mood #1 Interpretation EKG Date: 09/03/20 Time: 01:26 Rhythm: NSR Rate (Beats/Min): 71 [place]: Normal P-Wave: Present QRS: Normal ST-T: Normal QT: Normal MA/PQ Interval: 194 ms Comparison: No Change (Essentially normal EKG.) *Q Meaningful Use (DIS) - VTE *Q VTE Pharmacological Contraindications *Q: Risk of Bleeding
--- NOTE | 2020-09-03 16:20 | CT ---
CT abdomen and pelvis Technique: Multiple axial sections were obtained from above the dome of the diaphragm inferiorly through the pubic symphysis. Intravenous and oral contrast was utilized. Delayed images were also obtained through the abdomen and pelvis. Reconstructed coronal and sagittal images were obtained. Comparison: Prior CT abdomen and pelvis study of 10/21/15. Findings: Mild bibasilar atelectasis is seen. Several granulomas are noted within the right lung base. There is a minimal amount of pleural fluid seen within the left lung base. Liver contains no focal abnormality. Spleen appears within normal limits. Accessory splenic tissue is noted anterior to the spleen. Small hiatal hernia is seen with mild gastroesophageal reflux of contrast. Adrenal glands show no nodule. No abnormality is appreciated within the pancreas. Gallbladder contains no calcified gallstones. Abdominal aorta shows no aneurysm. No retroperitoneal adenopathy or mesenteric abnormalities are seen. Kidneys show symmetric contrast enhancement without hydronephrosis or mass. Small calcification is seen within the mid to lower right kidney measuring about 4.4 mm compatible with nonobstructing stone. Kidneys show contrast excretion into two ureters from the left side which join proximally. Contrast is noted within the bladder. Small fat-containing left inguinal hernia is noted. Stool is noted throughout the colon. Bone window settings were reviewed which show no acute osseous abnormality. Small hernia is noted superior to the umbilicus. Impression: 1. Mild bibasilar atelectasis with minimal left-sided pleural effusion. 2. Small hiatal hernia with gastroesophageal reflux of contrast into the distal esophagus most likely representing reflux esophagitis. 3. Small fat-containing left inguinal hernia. 4. Slight increased stool is seen throughout the colon. Diagnostic code #3 I agree with preliminary report from [facility], finalized on 09/03/20, 12:20 PM CDT, code 1
--- NOTE | 2020-09-03 17:00 | CT ---
CT chest Technique: Multiple axial sections through the chest were obtained. Intravenous contrast was utilized. Study has been performed as a pulmonary angiogram protocol. Comparison: No prior chest CT is available, prior chest x-ray of 09/02/20 is available. Findings: Heart size appears within normal limits. No pulmonary embolism is seen. Small hiatal hernia is noted. Thoracic aorta shows no aneurysm. No mediastinal mass or adenopathy is seen. Mild atelectasis is seen posteriorly within both lung bases. Slight scarring is believed to be present within both lung apices. Two small calcified granulomas are seen within the left lung base. Several calcified lymph nodes are noted within the inferior left hilar region. Difficult to exclude mild bronchitis if patient has correlating clinical symptoms. Bone window settings were reviewed which show no acute osseous abnormality. Impression: 1. No findings of pulmonary embolism. 2. Slight findings suggestive of mild bronchitis. Please correlate with patient's symptoms. 3. Other findings believed to be incidental as noted above. Diagnostic code #2 I agree with preliminary report from [facility], finalized on 01/04/21, 5:13 AM CDT, code 1
--- NOTE | 2020-09-03 17:28 | PCM.EKG ---
#1 Interpretation EKG Date: 09/03/20 Time: 01:26 Rhythm: NSR Rate (Beats/Min): 71 [place]: Normal P-Wave: Present QRS: Normal ST-T: Normal QT: Normal (Normal sinus rhythm, essentially normal EKG.) Comparison: Change From Previous EKG (Normal rate)
== END 2020-09-03 14:24 | disposition home or self-care (01) ==
LOC: JD.ED 22:54 → JD.MS 09-02 06:29
PROVIDERS: ADMIT Internal Medicine; ATTEND Internal Medicine
DX: I16.0 Hypertensive urgency (principal); E78.00 Pure hypercholesterolemia, unspecified; I10 Essential (primary) hypertension; G47.30 Sleep apnea, unspecified; F17.210 Nicotine dependence, cigarettes, uncomplicated; J40 Bronchitis, not specified as acute or chronic; D72.829 Elevated white blood cell count, unspecified; K21.9 Gastro-esophageal reflux disease without esophagitis; E11.9 Type 2 diabetes mellitus without complications; Z20.822 Contact with and (suspected) exposure to COVID-19; Z79.84 Long term (current) use of oral hypoglycemic drugs; Z88.0 Allergy status to penicillin; Z79.899 Other long term (current) drug therapy; Z79.82 Long term (current) use of aspirin; Z86.73 Personal history of transient ischemic attack (TIA), and cerebral infarction without residual deficits; Z98.890 Other specified postprocedural states
CPT/HCPCS: 0240U; 36415; 71045; 71275; 74177; 80048; 80053; 81001; 82947; 83605; 83690; 83735; 84484; 85025; 87040; 93005; 96365; 96366; 96375; 96376; 99285; A9270; C9113; G0378; J0696; J1170; J2060; J2405; J3490; J7030; J7120; Q9963; Q9967; 93010; 99203; 99217; 99220

== ENCOUNTER 2020-09-21 08:50 | Day surgery (SDC) | payer MEDICARE, MEDICAID ==
[~2020-09-21 08:50] MED LIST changes: -Lactated Ringers 1,000 ML IV SCH; +Lidocaine 1% 4 ML ONE; +Midazolam 1 MG/ML 2 ML SDV ONE; +Propofol 200 MG/20 ML SDV ONE; +fentaNYL 100 MCG/2 ML SDV ONE
[2020-09-21] MEDS: Lactated Ringers 1,000 ML IV SCH ×2 (09:05→11:23)
--- NOTE | 2020-09-21 09:36 | PCM.PREANE ---
Preanesthetic Assessment - Procedure Proposed Procedure: EGD - Anesthesia/Transfusion/Family Hx Anesthesia History: Prior Anesthesia Without Reaction Family History of Anesthesia Reaction: No Transfusion History: No Prior Transfusion(s) Type of Transfusion Reactions: Reports: Unknown Intubation History: Unknown - Review of Systems General: No Symptoms Pulmonary: No Symptoms Cardiovascular: No Symptoms Gastrointestinal: No Symptoms Neurological: Gait Disturbance (left side is weaker than right due to stroke X 3 "legs") Other: Reports: Diabetes (check this am at 09:08 97) - Physical Assessment NPO Status Date: 09/20/20 NPO Status Time: 00:00 Vital Signs: Last Vital Signs Temp 36.7 C 09/21/20 08:50 Pulse 70 09/21/20 08:50 Resp 20 09/21/20 08:50 BP 117/92 H 09/21/20 08:50 Pulse Ox 97 09/21/20 09:19 Height: 1.83 m Weight: 90 kg ASA Class: 2 Mental Status: Alert & Oriented x3 Airway Class: Mallampati = 1 Dentition: Reports: Missing Tooth/Teeth, Caries Thyro-Mental Finger Breadths: 3 Mouth Opening Finger Breadths: 3 ROM/Head Extension: Full Lungs: Clear to Auscultation, Normal Respiratory Effort, Wheezing (bases clear on cough) Cardiovascular: Regular Rate, Regular Rhythm - Lab Values: Laboratory Last Values POC Glucose 97 mg/dL (70-99) 09/21/20 09:08 - Allergies Allergies/Adverse Reactions: Allergies Allergy/AdvReac Type Severity Reaction Status Date / Time Penicillins Allergy Rash Verified 09/20/20 13:15 - Anesthesia Plan Pre-Op Medication Ordered: Beta Pura Beta Pura: Metoprolol Med Last Dose Date: 09/21/20 Med Last Dose Time: 07:00 - Acknowledgements Anesthesia Type Planned: MAC Pt an Appropriate Candidate for the Planned Anesthesia: Yes Alternatives and Risks of Anesthesia Discussed w Pt/Guardian: Yes Pt/Guardian Understands and Agrees with Anesthesia Plan: Yes PreAnesthesia Questionnaire HEENT History: Reports: Allergic Rhinitis, Cataract, Hard of Hearing, Impaired Vision Other HEENT History: 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, tinnitis, wears glasses Cardiovascular History: Reports: High Cholesterol, Hypertension Other Cardiovascular History: repair of hole in heart, heart disease, vertebrobasilar artery syndrome, PFO with repair Respiratory History: Reports: COPD, Sleep Apnea Other Respiratory History: panlobular emphysema Gastrointestinal History: Reports: GERD, Hiatal Hernia Genitourinary History: Reports: None 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 Musculoskeletal History: Reports: Arthritis Other Musculoskeletal History: 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 Neurological History: Reports: CVA, Headaches, Chronic, Migraines Other Neuro History: cephalgia Psychiatric History: Reports: Anxiety, Depression Endocrine/Metabolic History: Reports: Diabetes, Type II Hematologic History: Reports: None Immunologic History: Reports: None Oncologic (Cancer) History: Reports: None Dermatologic History: Reports: None - Infectious Disease History Infectious Disease History: Reports: Chicken Pox - Past Surgical History Head Surgeries/Procedures: Reports: None HEENT Surgical History: Reports: None Cardiovascular Surgical History: Reports: Other (See Below) Other Cardiovascular Surgeries/Procedures: foramen ovale surgical repair Respiratory Surgical History: Reports: None GI Surgical History: Reports: Colonoscopy, Hernia, Inguinal Female Surgical History: Reports: None Male Surgical History: Reports: Vasectomy Endocrine Surgical History: Reports: None Neurological Surgical History: Reports: None Musculoskeletal Surgical History: Reports: Arthroscopic Knee, Arthroscopic Procedure Oncologic Surgical History: Reports: None Dermatological Surgical History: Reports: None - SUBSTANCE USE Tobacco Use Status *Q: Current Every Day Tobacco User Tobacco Use Within Last Twelve Months: Cigarettes Second Hand Smoke Exposure: No Days Per Week of Alcohol Use: 1 Number of Drinks Per Day: 1 Total Drinks Per Week: 1 Recreational Drug Use History: Yes Recreational Drug Type: Reports: Marijuana/Hashish - HOME MEDS Home Medications: Home Meds Metoprolol Tartrate 25 mg PO QAM 06/23/18 [History] hydroCHLOROthiazide [Hydrochlorothiazide] 25 mg PO DAILY #30 tab 06/23/18 [Rx] Metoprolol Tartrate 50 mg PO QPM 11/25/18 [History] Albuterol Sulfate [Albuterol Sulfate Hfa] 1 puff INH Q4H PRN 02/17/20 [History] Amitriptyline [Elavil] 75 mg PO BEDTIME 02/17/20 [History] Aspirin 81 mg PO DAILY 02/17/20 [History] Clopidogrel Bisulfate [Plavix] 75 mg PO DAILY 02/17/20 [History] atorvaSTATin [Lipitor] 20 mg PO DAILY 02/17/20 [History] Omeprazole 20 mg PO QAM 09/02/20 [History] Famotidine 40 mg PO BID #30 oral.susp 09/03/20 [Rx] Sucralfate [Carafate] 1 gm PO Q6HR #60 tab 09/03/20 [Rx] cloNIDine [Catapres] 0.2 mg PO Q8H PRN #90 tab 09/03/20 [Rx] metFORMIN HCl [Metformin HCl] 1,000 mg PO BID #0 09/03/20 [Rx] - CURRENT (IN HOUSE) MEDS Current Meds: Current Medications Albuterol (Albuterol 0.083% 2.5 Mg/3 Ml Neb Soln) 2.5 mg NEB ONETIME PRN PRN Reason: COPD Stop: 09/21/20 16:00 Last Admin: 09/21/20 09:18 Dose: 2.5 mg Documented by: Lactated Ringer's (Ringers, Lactated) 1,000 mls @ 125 mls/hr IV ASDIRECTED MICHAELA Stop: 09/21/20 23:00 Lidocaine/Sodium Bicarbonate (Lidocaine 1%/Sod Bicarbonate In Ns 8.4% 1 Ml Syringe) 0.25 ml IDERM ONETIME PRN PRN Reason: Prior to IV Start Stop: 09/21/20 18:00 Sodium Chloride (Sodium Chloride 0.9% 10 Ml Syringe) 10 ml FLUSH ASDIRECTED PRN PRN Reason: Keep Vein Open Stop: 09/21/20 18:00 Discontinued Medications Fentanyl (Fentanyl 100 Mcg/2 Ml Sdv) Confirm Administered Dose 100 mcg .ROUTE .STK-MED ONE Stop: 09/21/20 07:21 Lidocaine HCl (Xylocaine-Mpf 1%) Confirm Administered Dose 4 mls @ as directed .ROUTE .STK-MED ONE Stop: 09/21/20 07:20 Midazolam HCl (Midazolam 1 Mg/Ml 2 Ml Sdv) Confirm Administered Dose 2 mg .ROUTE .STK-MED ONE Stop: 09/21/20 07:21 Propofol (Propofol 200 Mg/20 Ml Sdv) Confirm Administered Dose 200 mg .ROUTE .STK-MED ONE Stop: 09/21/20 07:20
--- NOTE | 2020-09-21 10:58 | PCM.PRNOTE ---
- Free Text/Narrative Note: Date: 09/21/2020 Procedure: diagnostic esophagogastroduodenoscopy History: GERD with last endoscopy about 20 years ago Endoscopist: Keven Cazares MD Findings: Substantial sliding hiatal hernia. Distal esophagitis with gross evidence of longer segment Osorio's metaplasia. Detailed Report: The patient was taken to the endoscopy suite and placed in left lateral decubitus position. Timeout was performed and monitored anesthesia care was initiated. A bite-block was placed. The endoscope was inserted in the mouth and advanced all the way to the distal duodenum. Duodenal mucosa appeared normal. Sample mucosal biopsies were obtained from the duodenal bulb with cold forceps. The scope was withdrawn into the stomach. The antrum and body of the stomach appeared normal. A sample biopsy of antrum was obtained. The scope was retroflexed and there was a substantial hiatal hernia visualized. The patient was coughing throughout the procedure and the sliding component was visualized. 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 The scope was withdrawn into the herniated stomach. Biopsies were taken from the gastroesophageal junction. There did appear to be some longer segment salmon-colored mucosal patches extending proximally consistent with Osorio's. Biopsies of this tissue were obtained. There appeared to be some inflammatory change in the distal esophagus associated with reflux as well. Air was suctioned from the stomach prior to withdrawal of the scope. The proximal esophagus and pharynx appeared normal on endoscopy.
--- NOTE | 2020-09-21 11:04 | PCM48HPAN ---
Post Anesthesia Note - EVALUATION WITHIN 48HRS OF ANESTHETIC Vital Signs in Normal Range: Yes Patient Participated in Evaluation: Yes Respiratory Function Stable: Yes Airway Patent: Yes Cardiovascular Function Stable: Yes Hydration Status Stable: Yes Pain Control Satisfactory: Yes Nausea and Vomiting Control Satisfactory: Yes Mental Status Recovered: Yes Vital Signs: Last Vital Signs Temp 97.3 09/21/20 1055 Pulse 70 09/21/20 1055 Resp 23 09/21/20 1055 BP 113/80 09/21/20 1055 Pulse Ox 98 09/21/20 1055
[2020-09-21 11:52] VITALS: BP 106/83; PULSE 65
== END 2020-09-21 11:50 | disposition home or self-care (01) ==
LOC: JD.SDS 08:50
PROVIDERS: ATTEND Surgery
DX: K22.70 Barrett's esophagus without dysplasia (principal); K21.00 Gastro-esophageal reflux disease with esophagitis, without bleeding; K44.9 Diaphragmatic hernia without obstruction or gangrene; K22.8 Other specified diseases of esophagus; I10 Essential (primary) hypertension; G43.909 Migraine, unspecified, not intractable, without status migrainosus; F17.210 Nicotine dependence, cigarettes, uncomplicated; J44.9 Chronic obstructive pulmonary disease, unspecified; E11.9 Type 2 diabetes mellitus without complications; Z86.73 Personal history of transient ischemic attack (TIA), and cerebral infarction without residual deficits; Z88.0 Allergy status to penicillin; Z79.899 Other long term (current) drug therapy; Z98.890 Other specified postprocedural states
CPT/HCPCS: 43239; 82947; 94640; J2250; J2704; J3010; J7120; 00731; 88305

== ENCOUNTER 2020-10-19 06:28 | Observation (INO) | payer MEDICARE, MEDICAID ==
[~2020-10-19 06:28] MED LIST changes: -Albuterol 0.083% 2.5 MG/3 ML Neb Soln NEB PRN; +Lactated Ringers 1,000 ML IV SCH; -Lidocaine 1% 4 ML ONE; -Midazolam 1 MG/ML 2 ML SDV ONE; -Propofol 200 MG/20 ML SDV ONE; -fentaNYL 100 MCG/2 ML SDV ONE
[2020-10-19] MEDS ORDERED: Albuterol 0.083% 2.5 MG/3 ML Neb Soln NEB SCH (07:00)
[2020-10-19] MEDS ORDERED: Heparin Sodium 5,000 Units/ML Vial SUBCUT ONE (07:00)
[2020-10-19] MEDS ORDERED: ceFAZolin 1 GM Vial ONE (07:08)
[2020-10-19] MEDS ORDERED: Rocuronium 50 MG/5 ML Vial ONE ×2 (07:08→08:19)
[2020-10-19] MEDS ORDERED: Lactated Ringers 1,000 ML ONE (07:08)
[2020-10-19] MEDS ORDERED: Ondansetron 4 MG/2 ML SDV ONE (07:08)
[2020-10-19] MEDS ORDERED: Dexamethasone 4 MG/ML 5 ML MDV ONE (07:08)
[2020-10-19] MEDS ORDERED: Lidocaine 1% 4 ML ONE (07:09)
[2020-10-19] MEDS ORDERED: Ketorolac 30 MG/ML SDV ONE (07:09)
[2020-10-19] MEDS ORDERED: Midazolam 1 MG/ML 2 ML SDV ONE (07:09)
[2020-10-19] MEDS ORDERED: Propofol 200 MG/20 ML SDV ONE (07:09)
[2020-10-19] MEDS ORDERED: fentaNYL 250 MCG/5 ML SDV ONE (07:09)
[2020-10-19] MEDS ORDERED: Vancomycin 1 GM, Vancomycin 500 MG in Sodium Chloride 0.9% 500 ML IV ONE (07:15)
[2020-10-19] MEDS ORDERED: Bupivacaine 0.5%/EPINEPHrine 1:200,000 50 ML MDV ONE (07:20)
--- NOTE | 2020-10-19 07:25 | PCM.PREANE ---
Preanesthetic Assessment - Anesthesia/Transfusion/Family Hx Anesthesia History: Prior Anesthesia Without Reaction Family History of Anesthesia Reaction: No Transfusion History: No Prior Transfusion(s) Type of Transfusion Reactions: Reports: Unknown Intubation History: Unknown - Review of Systems General: Other (positive for marijuana use) Pulmonary: Other (current smoker, AJ, last smoked last night at 2200. no CPAP usage) Cardiovascular: Other (HTN, on Metoprolol, ) Gastrointestinal: Other (hiatal hernia, GERD) Neurological: Headache, Other (hx of stroke X3, clotting disorder, on plavix and to receive Heparing prior to induction, right side slightly weaker than left ) Other: Reports: Diabetes (diabetes 2, diet controlled), Depression, Anxiety - Physical Assessment NPO Status Date: 10/18/20 NPO Status Time: 23:30 Vital Signs: Last Vital Signs Temp 37.1 C 10/19/20 06:22 Pulse 66 10/19/20 06:22 Resp 17 10/19/20 06:22 BP 126/98 H 10/19/20 06:22 Pulse Ox 99 10/19/20 06:22 Height: 1.83 m Weight: 89.2 kg ASA Class: 3 Mental Status: Alert & Oriented x3 Airway Class: Mallampati = 2 Dentition: Reports: Normal Dentition Thyro-Mental Finger Breadths: 3 Mouth Opening Finger Breadths: 3 ROM/Head Extension: Full Lungs: Clear to Auscultation, Normal Respiratory Effort Cardiovascular: Regular Rate, Regular Rhythm - Lab Values: Laboratory Last Values WBC 8.41 K/mm3 (4.23-9.07) 10/19/20 06:40 RBC 4.41 M/mm3 (4.63-6.08) L 10/19/20 06:40 Hgb 13.2 gm/dl (13.7-17.5) L 10/19/20 06:40 Hct 39.2 % (40.1-51.0) L 10/19/20 06:40 MCV 88.9 fl (79.0-92.2) 10/19/20 06:40 MCH 29.9 pg (25.7-32.2) 10/19/20 06:40 MCHC 33.7 g/dl (32.2-35.5) 10/19/20 06:40 RDW Std Deviation 43.9 fL (35.1-43.9) 10/19/20 06:40 Plt Count 392 K/mm3 (163-337) H 10/19/20 06:40 MPV 9.3 fl (9.4-12.3) L 10/19/20 06:40 Neut % (Auto) 55.8 % (34.0-67.9) 10/19/20 06:40 Lymph % (Auto) 29.3 % (21.8-53.1) 10/19/20 06:40 Mcdonough % (Auto) 11.8 % (5.3-12.2) 10/19/20 06:40 Eos % (Auto) 2.4 (0.8-7.0) 10/19/20 06:40 Baso % (Auto) 0.5 % (0.1-1.2) 10/19/20 06:40 Neut # (Auto) 4.70 K/mm3 (1.78-5.38) 10/19/20 06:40 Lymph # (Auto) 2.46 K/mm3 (1.32-3.57) 10/19/20 06:40 Mcdonough # (Auto) 0.99 K/mm3 (0.30-0.82) H 10/19/20 06:40 Eos # (Auto) 0.20 K/mm3 (0.04-0.54) 10/19/20 06:40 Baso # (Auto) 0.04 K/mm3 (0.01-0.08) 10/19/20 06:40 Sodium 141 mEq/L (136-145) 10/19/20 06:40 Potassium 3.8 mEq/L (3.5-5.1) 10/19/20 06:40 Chloride 105 mEq/L (98-107) 10/19/20 06:40 Carbon Dioxide 29 mEq/L (21-32) 10/19/20 06:40 Anion Gap 10.8 (5-15) 10/19/20 06:40 BUN 17 mg/dL (7-18) 10/19/20 06:40 Creatinine 1.0 mg/dL (0.7-1.3) 10/19/20 06:40 Est Cr Clr Drug Dosing 99.16 mL/min 10/19/20 06:40 Estimated GFR (MDRD) > 60 mL/min (>60) 10/19/20 06:40 BUN/Creatinine Ratio 17.0 (14-18) 10/19/20 06:40 Glucose 112 mg/dL (70-99) H 10/19/20 06:40 Calcium 9.1 mg/dL (8.5-10.1) 10/19/20 06:40 Total Bilirubin 0.3 mg/dL (0.2-1.0) 10/19/20 06:40 AST 16 U/L (15-37) 10/19/20 06:40 ALT 18 U/L (16-63) 10/19/20 06:40 Alkaline Phosphatase 65 U/L (46-116) 10/19/20 06:40 Total Protein 7.2 g/dl (6.4-8.2) 10/19/20 06:40 Albumin 3.7 g/dl (3.4-5.0) 10/19/20 06:40 Globulin 3.5 gm/dL 10/19/20 06:40 Albumin/Globulin Ratio 1.1 (1-2) 10/19/20 06:40 - Imaging/EKG Impressions: EKG sr at 71 chest xray mild bronchitis demonstrated on 08/25 - Allergies Allergies/Adverse Reactions: Allergies Allergy/AdvReac Type Severity Reaction Status Date / Time Penicillins Allergy Rash Verified 10/19/20 06:52 - Blood Blood Available: No Product(s) Available: None - Anesthesia Plan Beta Pura: Metoprolol Med Last Dose Date: 10/19/20 Med Last Dose Time: 04:30 - Acknowledgements Anesthesia Type Planned: General Anesthesia Pt an Appropriate Candidate for the Planned Anesthesia: Yes Alternatives and Risks of Anesthesia Discussed w Pt/Guardian: Yes PreAnesthesia Questionnaire HEENT History: Reports: Allergic Rhinitis, Cataract, Hard of Hearing, Impaired Vision, Other (See Below) Other HEENT History: 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, tinnitis, wears glasses Cardiovascular History: Reports: High Cholesterol, Hypertension Other Cardiovascular History: repair of hole in heart, heart disease, vertebrobasilar artery syndrome, PFO with repair Respiratory History: Reports: COPD, Sleep Apnea Other Respiratory History: panlobular emphysema Gastrointestinal History: Reports: GERD, Hiatal Hernia Genitourinary History: Reports: None 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 Musculoskeletal History: Reports: Arthritis Other Musculoskeletal History: 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 Neurological History: Reports: CVA, Headaches, Chronic, Migraines Other Neuro History: cephalgia Psychiatric History: Reports: Anxiety, Depression Endocrine/Metabolic History: Reports: Diabetes, Type II Hematologic History: Reports: None Immunologic History: Reports: None Oncologic (Cancer) History: Reports: None Dermatologic History: Reports: None - Infectious Disease History Infectious Disease History: Reports: None - Past Surgical History Head Surgeries/Procedures: Reports: None HEENT Surgical History: Reports: None Cardiovascular Surgical History: Reports: Other (See Below) Other Cardiovascular Surgeries/Procedures: foramen ovale surgical repair Respiratory Surgical History: Reports: None GI Surgical History: Reports: Colonoscopy, Hernia, Inguinal Female Surgical History: Reports: None Male Surgical History: Reports: Vasectomy Endocrine Surgical History: Reports: None Neurological Surgical History: Reports: None Musculoskeletal Surgical History: Reports: Arthroscopic Knee, Arthroscopic Procedure Oncologic Surgical History: Reports: None Dermatological Surgical History: Reports: None - SUBSTANCE USE Tobacco Use Status *Q: Current Every Day Tobacco User Recreational Drug Use History: Yes Recreational Drug Type: Reports: Marijuana/Hashish - HOME MEDS Home Medications: Home Meds Metoprolol Tartrate 25 mg PO QAM 06/23/18 [History] hydroCHLOROthiazide [Hydrochlorothiazide] 25 mg PO DAILY #30 tab 06/23/18 [Rx] Metoprolol Tartrate 50 mg PO QPM 11/25/18 [History] Albuterol Sulfate [Albuterol Sulfate Hfa] 1 puff INH Q4H PRN 02/17/20 [History] Amitriptyline [Elavil] 75 mg PO BEDTIME 02/17/20 [History] Aspirin 81 mg PO DAILY 02/17/20 [History] Clopidogrel Bisulfate [Plavix] 75 mg PO DAILY 02/17/20 [History] atorvaSTATin [Lipitor] 20 mg PO DAILY 02/17/20 [History] Omeprazole 20 mg PO QAM 09/02/20 [History] Famotidine 40 mg PO BID #30 oral.susp 09/03/20 [Rx] Sucralfate [Carafate] 1 gm PO Q6HR #60 tab 09/03/20 [Rx] cloNIDine [Catapres] 0.2 mg PO Q8H PRN #90 tab 09/03/20 [Rx] metFORMIN HCl [Metformin HCl] 1,000 mg PO BID #0 09/03/20 [Rx] - CURRENT (IN HOUSE) MEDS Current Meds: Current Medications Albuterol (Albuterol 0.083% 2.5 Mg/3 Ml Neb Soln) 2.5 mg NEB ONETIME MICHAELA Stop: 10/19/20 23:00 Last Admin: 10/19/20 06:56 Dose: 2.5 mg Documented by: Lactated Ringer's (Ringers, Lactated) 1,000 mls @ 125 mls/hr IV ASDIRECTED MICHAELA Stop: 10/19/20 23:00 Last Admin: 10/19/20 06:40 Dose: 125 mls/hr Documented by: Vancomycin HCl 1 gm/Vancomycin HCl 500 mg/ Sodium Chloride 500 mls @ 250 mls/hr IV ONETIME ONE Stop: 10/19/20 09:14 Lidocaine/Sodium Bicarbonate (Lidocaine 1%/Sod Bicarbonate In Ns 8.4% 1 Ml Syringe) 0.25 ml IDERM ONETIME PRN PRN Reason: Prior to IV Start Stop: 10/19/20 18:00 Last Admin: 10/19/20 06:40 Dose: 0.25 ml Documented by: Sodium Chloride (Sodium Chloride 0.9% 10 Ml Syringe) 10 ml FLUSH ASDIRECTED PRN PRN Reason: Keep Vein Open Stop: 10/19/20 18:00 Discontinued Medications Cefazolin Sodium (Cefazolin 1 Gm Vial) Confirm Administered Dose 2 gm .ROUTE .STK-MED ONE Stop: 10/19/20 07:09 Dexamethasone (Dexamethasone 4 Mg/Ml 5 Ml Mdv) Confirm Administered Dose 20 mg .ROUTE .STK-MED ONE Stop: 10/19/20 07:09 Fentanyl (Fentanyl 250 Mcg/5 Ml Sdv) Confirm Administered Dose 250 mcg .ROUTE .STK-MED ONE Stop: 10/19/20 07:10 Heparin Sodium (Porcine) (Heparin Sodium 5,000 Units/Ml Vial) 5,000 units SUBCUT ONETIME ONE Stop: 10/19/20 07:01 Vancomycin HCl 1 gm/ Sodium (Chloride) 250 mls @ 250 mls/hr IV ONETIME ONE Stop: 10/19/20 07:51 Lactated Ringer's (Ringers, Lactated) Confirm Administered Dose 1,000 mls @ as directed .ROUTE .STK-MED ONE Stop: 10/19/20 07:09 Lidocaine HCl (Xylocaine-Mpf 1%) Confirm Administered Dose 4 mls @ as directed .ROUTE .STK-MED ONE Stop: 10/19/20 07:10 Ketorolac Tromethamine (Ketorolac 30 Mg/Ml Sdv) Confirm Administered Dose 30 mg .ROUTE .STK-MED ONE Stop: 10/19/20 07:10 Midazolam HCl (Midazolam 1 Mg/Ml 2 Ml Sdv) Confirm Administered Dose 2 mg .ROUTE .STK-MED ONE Stop: 10/19/20 07:10 Ondansetron HCl (Ondansetron 4 Mg/2 Ml Sdv) Confirm Administered Dose 4 mg .ROUTE .STK-MED ONE Stop: 10/19/20 07:09 Propofol (Propofol 200 Mg/20 Ml Sdv) Confirm Administered Dose 200 mg .ROUTE .STK-MED ONE Stop: 10/19/20 07:10 Rocuronium Leander (Rocuronium 50 Mg/5 Ml Vial) Confirm Administered Dose 50 mg .ROUTE .STK-MED ONE Stop: 10/19/20 07:09
[2020-10-19] MEDS ORDERED: Ketamine 500 mg/10 ML MDV ONE (07:54)
[2020-10-19] MEDS ORDERED: fentaNYL 100 MCG/2 ML SDV IVPUSH PRN (08:38)
[2020-10-19] MEDS ORDERED: Ondansetron 4 MG/2 ML SDV IVPUSH PRN ×2 (08:38→10:11)
[2020-10-19] MEDS ORDERED: HYDROmorphone 0.5 MG/0.5 ML Syringe IVPUSH PRN (08:42)
[2020-10-19] MEDS ORDERED: Morphine 2 MG/ML SYRINGE IVPUSH PRN (10:07)
[2020-10-19] MEDS ORDERED: Albuterol 6.7 GM Inhaler INH PRN (10:09)
[2020-10-19] MEDS ORDERED: Simethicone 80 MG Tab.Chew PO PRN (10:11)
[2020-10-19] MEDS ORDERED: Heparin Sodium 5,000 Units/ML Vial SUBCUT SCH (10:15)
[2020-10-19] MEDS ORDERED: Acetaminophen 325 MG Tab PO SCH (10:15)
--- NOTE | 2020-10-19 10:18 | PCM.POSTAN ---
POST ANESTHESIA ASSESSMENT - MENTAL STATUS Mental Status: Alert, Oriented - VITAL SIGNS Vital Signs: Last Vital Signs Temp 37.1 C 10/19/20 06:22 Pulse 66 10/19/20 06:22 Resp 17 10/19/20 06:22 BP 126/98 H 10/19/20 06:22 Pulse Ox 99 10/19/20 06:22 - RESPIRATORY Respiratory Status: Respiratory Rate WNL, Airway Patent, O2 Saturation Stable, Supplemental Oxygen - CARDIOVASCULAR CV Status: Pulse Rate WNL, Blood Pressure Stable - GASTROINTESTINAL GI Status: No Symptoms - PAIN Pain Score: 0 - POST OP HYDRATION Hydration Status: Adequate & Stable
--- NOTE | 2020-10-19 10:25 | PCM.PRNOTE ---
- Free Text/Narrative Note: Date: 10/19/2020 Operation: laparoscopic Toupet fundoplication Indication: small hiatal hernia with medically refractory reflux and Osorio metaplasia Surgeon: Keven Cazares MD Findings:Small hiatal hernia Detailed Report: The patient was taken to the operating room and placed in supine position. Timeout was performed and general endotracheal anesthesia was initiated. Abdominal hair was clipped and a Bucio catheter was placed. The patient was then repositioned into the low lithotomy, and the abdomen was prepped and draped in usual sterile fashion. A Veress needle was placed at the left upper quadrant to establish pneumoperitoneum. Once pressure reached 15 mmHg, a bladed 12 mm trocar was placed just superior and to the left of the umbilicus. A 10 mm 30 degree laparoscope was inserted into the abdomen and contents were inspected. There was no injury from Veress needle placement and the needle was withdrawn. Additional ports were placed under laparoscopic visualization. A 5 mm port was placed at the left lateral abdomen for the plumber assistant. An additional 12 mm port was placed at the left upper quadrant along the costal margin for the surgeon's right hand. A 5 mm port was placed at the right lateral abdomen for the liver retractor. The triangular liver retractor was inserted through this port, fixed at the side of the bed, and used to retract the left lobe of the liver anteriorly, exposing the proximal portion of the stomach. Finally, a 5 mm port was placed at the right upper quadrant through the falciform ligament for the surgeon's left hand. The patient was positioned in reverse Trendelenburg and dissection commenced. The pars flaccida was opened using the [place] LigaSure. This line of dissection was extended proximally towards the right pillar of the heather. Blunt dissection was used to separate the crural fibers from the medial aspect of the esophagus. Dissection was continued circumferentially around the distal esophagus, it from the phrenoesophageal ligament. Next, at approximately the midportion of the greater curvature, the [place] LigaSure was used to divide the greater omentum off of the stomach. This line was extended towards the angle of Hiss. Care was taken not to injure the spleen as the short gastrics were divided. A grasper was able to be passed posterior to the distal esophagus, and 1/4 inch [place] drain was placed around the esophagus and secured with an Endoloop suture. This was used for retraction for the remainder of the case. The stomach and esophagus were retracted inferiorly and anteriorly. Dissection was continued up into the mediastinum. The esophagus was mobilized for a good distance up into the chest, and appeared to sit within the stomach without any tension. The posterior window was developed to allow passage of the fundus of the stomach. The hiatal hernia was relatively small, and it appeared that the crura could be reapproximated with Ethibond suture alone. 2 pledgeted 0 Ethibond sutures were placed posteriorly to close the hiatus. Next, the fundus was passed from lateral to medial posteriorly to set up for partial fundoplication. A shoeshine maneuver was performed to ensure adequate positioning of the fundus prior to suturing. 2-0 Ethibond sutures were used to create a Toupet fundoplication. 6 stitches were placed in total. The [place] drain was then cut and removed. The dissection field was suctioned dry. The liver retractor was removed. There was a small superficial laceration to the posterior aspect of the liver shows bleeding, this was controlled with directed monopolar energy. All ports were removed under laparoscopic visualization after placement of 0 Vicryl suture for fascial closure at the larger port sites. All skin incisions were closed with running subcuticular Vicryl suture and dressed with Dermabond. The Bucio catheter was removed at the end of the case, and the patient was extubated in the operating room.
--- NOTE | 2020-10-19 11:14 | PCM48HPAN ---
Post Anesthesia Note - EVALUATION WITHIN 48HRS OF ANESTHETIC Vital Signs in Normal Range: Yes Patient Participated in Evaluation: Yes Respiratory Function Stable: Yes Airway Patent: Yes Cardiovascular Function Stable: Yes Hydration Status Stable: Yes Pain Control Satisfactory: Yes Nausea and Vomiting Control Satisfactory: Yes Mental Status Recovered: Yes Vital Signs: Last Vital Signs Temp 36.5 C 10/19/20 10:55 Pulse 65 10/19/20 10:55 Resp 23 H 10/19/20 10:55 BP 135/88 10/19/20 10:55 Pulse Ox 91 L 10/19/20 10:55
[2020-10-19] MEDS: Acetaminophen 325 MG Tab PO SCH ×2 (13:17→20:29)
[2020-10-19] MEDS: oxyCODONE 5 MG Tab PO PRN (13:19)
[2020-10-19] MEDS: Heparin Sodium 5,000 Units/ML Vial SUBCUT SCH ×2 (13:21→20:28)
[2020-10-19] MEDS: Lactated Ringers 1,000 ML IV SCH ×2 (13:26→23:47)
[2020-10-19] MEDS: Ketorolac 15 MG/ML SDV IVPUSH SCH ×2 (15:45→20:27)
[2020-10-19] MEDS ORDERED: Metoprolol Tartrate 25 MG Tab PO SCH (18:00)
[2020-10-19] MEDS ORDERED: Amitriptyline 25 MG Tab PO SCH (21:00)
[2020-10-20] MEDS: Ketorolac 15 MG/ML SDV IVPUSH SCH ×2 (03:43→11:29)
[2020-10-20] MEDS: Heparin Sodium 5,000 Units/ML Vial SUBCUT SCH (05:22)
[2020-10-20] MEDS: Acetaminophen 325 MG Tab PO SCH (05:23)
[2020-10-20] MEDS ORDERED: Metoprolol Tartrate 25 MG Tab PO SCH (08:00)
[2020-10-20] MEDS ORDERED: atorvaSTATin 20 MG Tab PO SCH (09:00)
[2020-10-20] MEDS ORDERED: Aspirin 81 MG Tab.Chew PO SCH (09:00)
[2020-10-20 09:39] VITALS: BP 120/77
[2020-10-20] MEDS: oxyCODONE 5 MG Tab PO PRN (11:45)
[2020-10-20 12:12] VITALS: PULSE 99
--- NOTE | 2020-10-20 18:26 | PCM48HPAN ---
Post Anesthesia Note - EVALUATION WITHIN 48HRS OF ANESTHETIC Vital Signs in Normal Range: Yes Patient Participated in Evaluation: Yes Respiratory Function Stable: Yes Airway Patent: Yes Cardiovascular Function Stable: Yes Hydration Status Stable: Yes Pain Control Satisfactory: Yes Nausea and Vomiting Control Satisfactory: Yes Mental Status Recovered: Yes Vital Signs: Last Vital Signs Temp 36.7 C 10/20/20 09:39 Pulse 99 10/20/20 09:39 Resp 12 10/20/20 09:39 BP 120/77 10/20/20 09:39 Pulse Ox 98 10/20/20 09:39
--- NOTE | 2020-10-24 09:38 | PCM.DCSUM1 ---
Discharge Summary - Hospital Course Free Text/Narrative:: Admitted for post op care following elective laparoscopic Toupet fundoplication for medically refractory reflux. Tolerated full liquid diet postoperatively without a problem and pain was controlled. Had some pain and induration along left flank postoperatively likely from abdominal wall hemorrhage from incision site; patient has been taking aspirin and plavix for his history of CVA. He did well throughout the day on POD 1 and was deemed fit for discharge to home. Instruction were provided on post-op diet modification. Diagnosis: Stroke: No - Discharge Data Discharge Date: 10/20/20 Discharge Disposition: Home, Self-Care 01 Condition: Good - Referral to Home Health Primary Care Physician: Tena Feliz NP - Patient Summary/Data Operative Procedure(s) Performed: laparoscopic Toupet fundoplication - Patient Instructions Diet: Full Liquid Diet Activity: No Lifting Over 10 Pounds Showering/Bathing: August Shower Wound/Incision Care: Keep Operative Site/Wound Site Clean and Dry Notify Provider of: Fever, Increased Pain, Swelling and Redness, Drainage, Nausea and/or Vomiting - Discharge Plan *PRESCRIPTION DRUG MONITORING PROGRAM REVIEWED*: Not Applicable *COPY OF PRESCRIPTION DRUG MONITORING REPORT IN PATIENT MATT: Not Applicable Prescriptions/Med Rec: oxyCODONE 5 mg PO Q4H PRN #20 tab PRN Reason: Pain Ondansetron [Zofran ODT] 4 mg PO Q6H PRN #30 tab.dis PRN Reason: Nausea Home Medications: Home Meds Metoprolol Tartrate 25 mg PO QAM 06/23/18 [History] hydroCHLOROthiazide [Hydrochlorothiazide] 25 mg PO DAILY #30 tab 06/23/18 [Rx] Metoprolol Tartrate 50 mg PO QPM 11/25/18 [History] Albuterol Sulfate [Albuterol Sulfate Hfa] 1 puff INH Q4H PRN 02/17/20 [History] Amitriptyline [Elavil] 75 mg PO BEDTIME 02/17/20 [History] Aspirin 81 mg PO DAILY 02/17/20 [History] Clopidogrel Bisulfate [Plavix] 75 mg PO DAILY 02/17/20 [History] atorvaSTATin [Lipitor] 20 mg PO DAILY 02/17/20 [History] Omeprazole 20 mg PO QAM 09/02/20 [History] cloNIDine [Catapres] 0.2 mg PO Q8H PRN #90 tab 09/03/20 [Rx] metFORMIN HCl [Metformin HCl] 1,000 mg PO BID #0 09/03/20 [Rx] Famotidine [Pepcid] 40 mg PO DAILY 10/19/20 [History] Ondansetron [Zofran ODT] 4 mg PO Q6H PRN #30 tab.dis 10/20/20 [Rx] oxyCODONE 5 mg PO Q4H PRN #20 tab 10/20/20 [Rx] Oxygen Therapy Mode: Room Air Patient Handouts: Cannabis Use Disorder, Hiatal Hernia, Steps to Quit Smoking Referrals: Tena Feliz NP [Primary Care Provider] - (only follow up as needed with your primary care provider.) Keven Cazares MD [Physician] - 11/01/20 12:45 pm (please attend the scheduled hospital follow up appointment as listed.) - Discharge Summary/Plan Comment DC Time >30 min.: No - Patient Data Vitals - Most Recent: Last Vital Signs Temp 36.7 C 10/20/20 09:39 Pulse 99 10/20/20 09:39 Resp 12 10/20/20 09:39 BP 120/77 10/20/20 09:39 Pulse Ox 98 10/20/20 09:39 Weight - Most Recent: 93.395 kg Med Orders - Current: Current Medications Discontinued Medications Acetaminophen (Acetaminophen 325 Mg Tab) 975 mg PO Q8H [facility] Last Admin: 10/19/20 12:58 Dose: Not Given Documented by: Acetaminophen (Acetaminophen 325 Mg Tab) 975 mg PO Q8H [facility] Last Admin: 10/20/20 05:23 Dose: 975 mg Documented by: Albuterol (Albuterol 0.083% 2.5 Mg/3 Ml Neb Soln) 2.5 mg NEB ONETIME MICHAELA Stop: 10/19/20 23:00 Last Admin: 10/19/20 06:56 Dose: 2.5 mg Documented by: Albuterol (Albuterol 6.7 Gm Inhaler) 0 gm INH Q4H PRN PRN Reason: Shortness of Breath Amitriptyline HCl (Amitriptyline 25 Mg Tab) 75 mg PO BEDTIME MICHAELA Last Admin: 10/19/20 20:28 Dose: 75 mg Documented by: Aspirin (Aspirin 81 Mg Tab.Chew) 81 mg PO DAILY [facility] Last Admin: 10/20/20 09:38 Dose: 81 mg Documented by: Atorvastatin Calcium (Atorvastatin 20 Mg Tab) 20 mg PO DAILY [facility] Last Admin: 10/20/20 09:38 Dose: 20 mg Documented by: Bupivacaine HCl/Epinephrine Bitart (Bupivacaine 0.5%/Epinephrine 1:200,000 50 Ml Mdv) Confirm Administered Dose 50 ml .ROUTE .STK-MED ONE Stop: 10/19/20 07:21 Last Admin: 10/19/20 08:06 Dose: 40 ml Documented by: Cefazolin Sodium (Cefazolin 1 Gm Vial) Confirm Administered Dose 2 gm .ROUTE .STK-MED ONE Stop: 10/19/20 07:09 Dexamethasone (Dexamethasone 4 Mg/Ml 5 Ml Mdv) Confirm Administered Dose 20 mg .ROUTE .STK-MED ONE Stop: 10/19/20 07:09 Fentanyl (Fentanyl 250 Mcg/5 Ml Sdv) Confirm Administered Dose 250 mcg .ROUTE .STK-MED ONE Stop: 10/19/20 07:10 Fentanyl (Fentanyl 100 Mcg/2 Ml Sdv) 50 mcg IVPUSH Q5M PRN PRN Reason: Pain (moderate 4-6) Stop: 10/19/20 12:00 Glycopyrrolate (Glycopyrrolate 0.2 Mg/Ml 2 Ml Syringe) Confirm Administered Dose 0.8 mg .ROUTE .STK-MED ONE Stop: 10/19/20 08:25 Heparin Sodium (Porcine) (Heparin Sodium 5,000 Units/Ml Vial) 5,000 units SUBCUT ONETIME ONE Stop: 10/19/20 07:01 Last Admin: 10/19/20 07:50 Dose: 5,000 units Documented by: Heparin Sodium (Porcine) (Heparin Sodium 5,000 Units/Ml Vial) 5,000 units SUBCUT Q8H [facility] Last Admin: 10/19/20 12:58 Dose: Not Given Documented by: Heparin Sodium (Porcine) (Heparin Sodium 5,000 Units/Ml Vial) 5,000 units SUBCUT Q8H [facility] Last Admin: 10/20/20 05:22 Dose: 5,000 units Documented by: Hydromorphone HCl (Hydromorphone 0.5 Mg/0.5 Ml Syringe) 0.5 mg IVPUSH Q1H PRN PRN Reason: Pain (severe 7-10) Stop: 10/19/20 12:00 Lactated Ringer's (Ringers, Lactated) 1,000 mls @ 125 mls/hr IV ASDIRECTED [facility] Stop: 10/19/20 23:00 Last Admin: 10/19/20 06:40 Dose: 125 mls/hr Documented by: Vancomycin HCl 1 gm/ Sodium (Chloride) 250 mls @ 250 mls/hr IV ONETIME ONE Stop: 10/19/20 07:51 Last Admin: 10/19/20 12:59 Dose: Not Given Documented by: Lactated Ringer's (Ringers, Lactated) Confirm Administered Dose 1,000 mls @ as directed .ROUTE .STK-MED ONE Stop: 10/19/20 07:09 Lidocaine HCl (Xylocaine-Mpf 1%) Confirm Administered Dose 4 mls @ as directed .ROUTE .STK-MED ONE Stop: 10/19/20 07:10 Vancomycin HCl 1 gm/Vancomycin HCl 500 mg/ Sodium Chloride 500 mls @ 250 mls/hr IV ONETIME ONE Stop: 10/19/20 09:14 Last Admin: 10/19/20 07:37 Dose: 250 mls/hr Documented by: Lactated Ringer's (Ringers, Lactated) 1,000 mls @ 100 mls/hr IV ASDIRECTED [facility] Last Admin: 10/19/20 23:47 Dose: 100 mls/hr Documented by: Ketamine HCl (Ketamine 500 Mg/10 Ml Mdv) Confirm Administered Dose 500 mg .ROUTE .STK-MED ONE Stop: 10/19/20 07:55 Ketorolac Tromethamine (Ketorolac 30 Mg/Ml Sdv) Confirm Administered Dose 30 mg .ROUTE .STK-MED ONE Stop: 10/19/20 07:10 Ketorolac Tromethamine (Ketorolac 15 Mg/Ml Sdv) 15 mg IVPUSH Q6H [facility] Last Admin: 10/20/20 11:29 Dose: Not Given Documented by: Lidocaine/Sodium Bicarbonate (Lidocaine 1%/Sod Bicarbonate In Ns 8.4% 1 Ml Syringe) 0.25 ml IDERM ONETIME PRN PRN Reason: Prior to IV Start Stop: 10/19/20 18:00 Last Admin: 10/19/20 06:40 Dose: 0.25 ml Documented by: Metoprolol Tartrate (Metoprolol Tartrate 25 Mg Tab) 25 mg PO QAM [facility] Last Admin: 10/20/20 09:38 Dose: 25 mg Documented by: Metoprolol Tartrate (Metoprolol Tartrate 25 Mg Tab) 50 mg PO QPM [facility] Last Admin: 10/19/20 17:30 Dose: 50 mg Documented by: Midazolam HCl (Midazolam 1 Mg/Ml 2 Ml Sdv) Confirm Administered Dose 2 mg .ROUTE .STK-MED ONE Stop: 10/19/20 07:10 Morphine Sulfate (Morphine 2 Mg/Ml Syringe) 1 mg IVPUSH Q4H PRN PRN Reason: Pain (severe 7-10) Neostigmine Methylsulfate (Neostigmine Methylsulfate 5 Mg/5 Ml Syringe) Confirm Administered Dose 5 mg .ROUTE .STK-MED ONE Stop: 10/19/20 08:25 Ondansetron HCl (Ondansetron 4 Mg/2 Ml Sdv) Confirm Administered Dose 4 mg .ROUTE .STK-MED ONE Stop: 10/19/20 07:09 Ondansetron HCl (Ondansetron 4 Mg/2 Ml Sdv) 4 mg IVPUSH ONETIME PRN PRN Reason: Nausea/Vomiting Stop: 10/19/20 12:00 Ondansetron HCl (Ondansetron 4 Mg/2 Ml Sdv) 4 mg IVPUSH Q8H PRN PRN Reason: Nausea Oxycodone HCl (Oxycodone 5 Mg Tab) 5 mg PO Q4H PRN PRN Reason: Pain (moderate 4-6) Last Admin: 10/20/20 11:45 Dose: 5 mg Documented by: Propofol (Propofol 200 Mg/20 Ml Sdv) Confirm Administered Dose 200 mg .ROUTE .STK-MED ONE Stop: 10/19/20 07:10 Rocuronium [place] (Rocuronium 50 Mg/5 Ml Vial) Confirm Administered Dose 50 mg .ROUTE .STK-MED ONE Stop: 10/19/20 07:09 Rocuronium [place] (Rocuronium 50 Mg/5 Ml Vial) Confirm Administered Dose 50 mg .ROUTE .STK-MED ONE Stop: 10/19/20 08:20 Simethicone (Simethicone 80 Mg Tab.Chew) 80 mg PO Q4H PRN PRN Reason: Gas Sodium Chloride (Sodium Chloride 0.9% 10 Ml Syringe) 10 ml FLUSH ASDIRECTED PRN PRN Reason: Keep Vein Open Stop: 10/19/20 18:00
== END 2020-10-20 11:50 | disposition home or self-care (01) ==
LOC: JD.MS 06:28 → INTOOBSV 06:28 → EDSTATUS 08:00
PROVIDERS: ADMIT Surgery; ATTEND Surgery
DX: K44.9 Diaphragmatic hernia without obstruction or gangrene (principal); K21.00 Gastro-esophageal reflux disease with esophagitis, without bleeding; K22.70 Barrett's esophagus without dysplasia; I10 Essential (primary) hypertension; F17.210 Nicotine dependence, cigarettes, uncomplicated; E11.9 Type 2 diabetes mellitus without complications; E78.00 Pure hypercholesterolemia, unspecified; J44.9 Chronic obstructive pulmonary disease, unspecified; G47.30 Sleep apnea, unspecified; Z86.73 Personal history of transient ischemic attack (TIA), and cerebral infarction without residual deficits; Z79.82 Long term (current) use of aspirin; Z79.84 Long term (current) use of oral hypoglycemic drugs; Z88.0 Allergy status to penicillin
CPT/HCPCS: 36415; 43280; 51798; 80048; 80053; 82947; 85025; 85027; 94640; A9270; G0378; J1100; J1644; J1885; J2250; J2405; J2704; J2710; J3010; J3370; J3490; J7040; J7120; J0690

== ENCOUNTER 2020-10-23 09:38 | Emergency (ER) | payer MEDICARE, MEDICAID ==
[2020-10-23 10:09] VITALS: BP 154/117; PULSE 120
--- NOTE | 2020-10-23 10:32 | EDM.PDOC ---
ED HPI GENERAL MEDICAL PROBLEM - General Chief Complaint: General Stated Complaint: brusing of the hip post op Time Seen by Provider: 10/23/20 10:20 Source of Information: Reports: Patient, Family (spouse) History Limitations: Reports: No Limitations - History of Present Illness INITIAL COMMENTS - FREE TEXT/NARRATIVE: 49-year-old male presents to the ED for evaluation of ecchymoses of the left lower abdominal wall starting mid axillary line and involves lower 11th and 12th rib mildly and then is more extensive across the midline in the left lower quadrant. Patient is on Plavix and stop the medicine for 7 days prior to surgery. He was restarted on Plavix 2 days later after surgery i.e. Friday, October 21. I suspect the ecchymoses appears to be in the abdominal wall and is likely from being strapped down to the gurney during surgery. He is tender in this area. He is eating okay had macaroni and cheese for supper last night. Bowel movements x2 small but normal with no blood. Plan will proceed with CT of the abdomen and pelvis without contrast. Onset: Gradual Onset Date: 10/22/20 (Noted a little bit of ecchymosis left lower lateral abdomen last night but much worse today.) Duration: Hour(s):, Constant, Getting Worse Location: Reports: Abdomen (Left lower quadrant of abdomen ecchymoses starting in the mid axillary line and moving anteriorly towards the medial left lower quadrant just above the iliac crest. There is also bruising over ribs 11 and 12 in the mid axillary line) Quality: Reports: Ache Severity: Moderate Improves with: Reports: None Worsens with: Reports: None Context: Reports: Other (Recent Vitaliy fundoplication with multiple laparoscopic surgical wounds which appear to be healing well.). Denies: Activity, Exercise, Lifting, Sick Contact, Trauma Associated Symptoms: Reports: No Other Symptoms. Denies: Confusion, Chest Pain, Cough, cough w sputum, Diaphoresis, Fever/Chills, Headaches, Loss of Appetite, Malaise, Nausea/Vomiting, Rash, Seizure, Shortness of Breath, Syncope Left Hip Pain Score (Numeric/FACES): 7 - Related Data Allergies Allergy/AdvReac Type Severity Reaction Status Date / Time Penicillins Allergy Rash Verified 10/23/20 10:09 Home Meds: Home Meds Metoprolol Tartrate 25 mg PO QAM 03/19/19 [History] hydroCHLOROthiazide [Hydrochlorothiazide] 25 mg PO DAILY #30 tab 06/23/18 [Rx] Metoprolol Tartrate 50 mg PO QPM 11/25/18 [History] Albuterol Sulfate [Albuterol Sulfate Hfa] 1 puff INH Q4H PRN 02/17/20 [History] Amitriptyline [Elavil] 75 mg PO BEDTIME 02/17/20 [History] Aspirin 81 mg PO DAILY 02/17/20 [History] Clopidogrel Bisulfate [Plavix] 75 mg PO DAILY 02/17/20 [History] atorvaSTATin [Lipitor] 20 mg PO DAILY 02/17/20 [History] Omeprazole 20 mg PO QAM 09/02/20 [History] cloNIDine [Catapres] 0.2 mg PO Q8H PRN #90 tab 09/03/20 [Rx] metFORMIN HCl [Metformin HCl] 1,000 mg PO BID #0 09/03/20 [Rx] Famotidine [Pepcid] 40 mg PO DAILY 10/19/20 [History] Ondansetron [Zofran ODT] 4 mg PO Q6H PRN #30 tab.dis 10/20/20 [Rx] oxyCODONE 5 mg PO Q4H PRN #20 tab 10/20/20 [Rx] Past Medical History HEENT History: Reports: Allergic Rhinitis, Cataract, Hard of Hearing, Impaired Vision, Other (See Below) Other HEENT History: 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, tinnitis, wears glasses Cardiovascular History: Reports: High Cholesterol, Hypertension Other Cardiovascular History: repair of hole in heart, heart disease, vertebrobasilar artery syndrome, PFO with repair Respiratory History: Reports: COPD, Sleep Apnea, SOB Other Respiratory History: panlobular emphysema Gastrointestinal History: Reports: GERD, Hemorrhoids, Hiatal Hernia Genitourinary History: Reports: None [employer]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 last time he has prescribed it Endocrine/Metabolic History: Reports: Diabetes, Type II Hematologic History: Reports: None Immunologic History: Reports: None Oncologic (Cancer) History: Reports: None Dermatologic History: Reports: None - Infectious Disease History Infectious Disease History: Reports: None - Past Surgical History Head Surgeries/Procedures: Reports: None HEENT Surgical History: Reports: None Cardiovascular Surgical History: Reports: Other (See Below) Other Cardiovascular Surgeries/Procedures: foramen ovale surgical repair Respiratory Surgical History: Reports: None GI Surgical History: Reports: Colonoscopy, Hernia, Inguinal, Other (See Below) Other GI Surgeries/Procedures: abdominal surgery Male Surgical History: Reports: Vasectomy Endocrine Surgical History: Reports: None Neurological Surgical History: Reports: None Musculoskeletal Surgical History: Reports: Arthroscopic Knee, Arthroscopic Procedure Other Musculoskeletal Surgeries/Procedures:: bilateral knee replacement Oncologic Surgical History: Reports: None Dermatological Surgical History: Reports: None Social & Family History - Tobacco Use Tobacco Use Status *Q: Current Every Day Tobacco User Years of Tobacco use: 30 Packs/Tins Daily: 0.5 - Caffeine Use Caffeine Use: Reports: Coffee Caffeine Use Comment: 3 cups per day - Recreational Drug Use Recreational Drug Use: No - Living Situation & Occupation Living situation: Reports: Single, with Significant Other Occupation: Disabled ED ROS GENERAL - Review of Systems Review Of Systems: See Below Constitutional: Reports: Malaise, Weakness, Fatigue. Denies: Fever, Chills, Decreased Appetite, Weight Loss HEENT: Reports: No Symptoms Respiratory: Reports: No Symptoms. Denies: Shortness of Breath, Wheezing, Pleuritic Chest Pain Cardiovascular: Reports: No Symptoms, Other (Patient had previous closure of his former foramen ovale) Endocrine: Reports: Fatigue ( with heart surgery and this is the reason he is on Plavix.) GI/Abdominal: Reports: Abdominal Pain (Only at sites of laparoscopic wounds. Also aware of tenderness along the ecchymoses left lower quadrant of the abdomen). Denies: Constipation (.), Diarrhea, Decreased Appetite, Difficulty Swallowing, Distension, Flatus, Hematemesis, Hematochezia, Melena, Mucous in Stool : Reports: No Symptoms Musculoskeletal: Reports: Neck Pain, Back Pain Skin: Reports: Bruising (Bruising easily due to being on Plavix.) Neurological: Denies: Confusion, Dizziness, Headache, Numbness, Paresthesia, Pre-Existing Deficit, Seizure, Syncope, Tingling, Tremors, Trouble Speaking, Difficulty Walking, Weakness Psychiatric: Reports: No Symptoms Hematologic/Lymphatic: Reports: No Symptoms Immunologic: Reports: No Symptoms ED EXAM, GENERAL - Physical Exam Exam: See Below Exam Limited By: No Limitations General Appearance: Alert, WD/WN, Anxious (Moderately anxious.), Other (Temperature is 36.1 degrees with a heart rate of 120 at the bedside. Respiratory to 16 with O2 sats of 99% room air. BP is 154/117. Initial tachycardia time presentation but current heart rate is 100 on my evaluation.) Eye Exam: Bilateral Eye: Normal Inspection (No scleral icterus or blepharal pallor), PERRL Throat/Mouth: Normal Inspection, Normal Lips, Normal Oropharynx, Other Head: Atraumatic, Normocephalic (Is normal) Neck: Normal Inspection, Supple, Non-Tender, Full Range of Motion. No: Lymphadenopathy (L), Lymphadenopathy (R) Respiratory/Chest: No Respiratory Distress, Lungs Clear, Normal Breath Sounds, No Accessory Muscle Use Cardiovascular: Normal Peripheral Pulses, No Edema, No Gallop, No Murmur, No Rub, Tachycardia (Initially but his come down to) Peripheral Pulses: 2+: Carotid (L), Carotid (R), Posterior Tibial (L), Posterior Tibial (R), Dorsalis Pedis (L), Dorsalis Pedis (R) GI/Abdominal: Normal Bowel Sounds, Soft, Tender (Is tender of course at his multiple laparoscopic wounds particular around the umbilicus. Surgical wounds are healing well.), Other (Patient has extensive ecchymoses in a somewhat linear fashion starting in the mid axillary line on the left side traveling towards the midline. It is approximately 4 to 5 cm wide and 12 cm in length. There is also mild ecchymoses on ribs 11 and 12 in the ear axillary line) Back Exam: Normal Inspection, Full Range of Motion. No: CVA Tenderness (L), CVA Tenderness (R) Extremities: Normal Inspection, Normal Range of Motion, Non-Tender, No Pedal Edema Neurological: Alert, Oriented, CN II-XII Intact, Normal Cognition, Normal Gait Course - Vital Signs Last Recorded V/S: Last Vital Signs Temp 36.1 C 10/23/20 10:08 Pulse 120 H 10/23/20 10:08 Resp 16 10/23/20 10:08 BP 154/117 H 10/23/20 10:08 Pulse Ox 99 10/23/20 10:08 - Radiology Interpretation Free Text/Narrative:: 49-year-old male presents to the ED for evaluation of diffuse ecchymoses left sided abdominal wall starting in the mid axillary line and traveling towards the midline in a somewhat linear fashion. Approximately 5 cm in width at the most and 12 to 14 cm in length. There is also milder ecchymoses over ribs 11 and 12 in the mid or anterior axillary line. I believe this is most likely from being strapped down to the gurney for his laparoscopic Vitaliy fundoplication last week on . He was off Plavix for a week and is resumed it on Friday, October 21. The area is quite tender to palpation and therefore a CT of his abdomen and pelvis will be performed without contrast. - Re-Assessments/Exams Free Text/Narrative Re-Assessment/Exam: 10/23/20 11:30 3 of the abdomen and pelvis performed without contrast due to soft tissue swelling and ecchymosis left lower abdominal wall. Findings reveal mild atelectasis is seen posteriorly within both lung bases. Left lung base shows evidence of 2 calcified granulomas. Increased density is noted within the left lateral abdominal wall musculature. This is compatible with an abdominal wall hematoma with an oblique AP dimension of 8.4 cm. Transverse dimension of 3.7 cm and craniocaudal measurement of 8.4 cm. Noncontrast appearance of the liver shows no focal abnormality. Gallbladder contains no calcified gallstones. Spleen size is normal. Spleen shows evidence of several calcified granulomas. Adrenal glands show no nodules. Kidneys show no hydronephrosis. There is a nonobstructing stone noted within the right kidney measuring 7.0 mm. Pancreas shows no discrete abnormality. Abdominal aorta shows atherosclerotic calcification which continues into the iliac vessels with no aneurysm. No mesenteric abnormalities are seen. Appendix is seen which is normal. Scattered diverticuli are noted within the colon. No pelvic mass or adenopathy identified. Bone window settings were reviewed which appear within normal limits for the patient's age. Impression is left lateral abdominal wall muscular hematoma with measurements as noted above. 10/23/20 11:[address] Keven Cazares surgeon who performed his Vitaliy fundoplication and he is not all that surprised as he could feel developing hematoma left lateral abdominal wall prior to discharge home. Patient can be seen in the clinic at any time he wishes. However the swelling will resolve on its own with him. May apply heat to the area 1/2-hour out of every 4 hours to help the swelling and blood reabsorb. Departure - Departure Time of Disposition: 11:50 Disposition: Home, Self-Care 01 Condition: Fair Clinical Impression: Abdominal wall hematoma Qualifiers: Encounter type: initial encounter Qualified Code(s): S30.1XXA - Contusion of abdominal wall, initial encounter - Discharge Information *PRESCRIPTION DRUG MONITORING PROGRAM REVIEWED*: Not Applicable *COPY OF PRESCRIPTION DRUG MONITORING REPORT IN PATIENT MATT: Not Applicable Referrals: PCP,Not In Area [Primary Care Provider] - Forms: ED Department Discharge Additional Instructions: Valuation in the emergency room today in regards to development of a swelling which is painful with overlying bruising left lower quadrant of the abdomen which extends from the lower to ribs mid axillary line in the travels towards just above your pelvic brim laterally and then travels towards the umbilicus lower abdomen. CT scan reveals that there is a collection of blood or hematoma in the muscles of the abdominal wall which is the cause of the surrounding bruising and the swelling. The swelling is approximately 8.4 cm which is a little over 3-1/2 inches and about 2 inches wide. This will resolve on its arm as the body reabsorb the blood from the tissues. Placing heat on the area for 1/2-hour out of every 4 hours for the next few days will also help your body liquefy the blood and resolve the hematoma a little bit faster. Expect the hematoma to completely resolve over period of about 3 weeks. Please follow-up with Dr. Cazares next week as planned. Sooner if any other problems develop. Sepsis Event Note (ED) - Evaluation Sepsis Screening Result: No Definite Risk - Focused Exam Vital Signs: Vital Signs Temp Pulse Resp BP Pulse Ox 10/23/20 10:08 36.1 C 120 H 16 154/117 H 99
--- NOTE | 2020-10-23 11:19 | CT ---
CT abdomen and pelvis Technique: Multiple axial sections through the abdomen and pelvis were obtained. Intravenous and oral contrast not utilized. Reconstructed coronal and sagittal images were obtained. Comparison: Prior CT abdomen and pelvis study of 09/03/20. Findings: Mild atelectasis is seen posteriorly within both lung bases. Left lung base shows evidence of two calcified granulomas. Increased density is noted within the lateral left abdominal wall musculature. This is compatible with an abdominal wall hematoma with an oblique AP dimension of 8.4 cm, transverse dimension of 3.7 cm and craniocaudal measurement of 8.4 cm. Noncontrast appearance of the liver shows no focal abnormality. Gallbladder contains no calcified gallstones. Spleen size is normal. Spleen shows evidence of several calcified granulomas. Adrenal glands show no nodule. Kidneys show no hydronephrosis. There is a nonobstructing stone noted within the right kidney measuring 7.0 mm. Pancreas shows no discrete abnormality. Abdominal aorta shows atherosclerotic calcification which continues into the iliac vessels with no aneurysm. No mesenteric abnormalities are seen. Appendix is seen which is normal. Scattered diverticuli are noted within the colon. No pelvic mass or adenopathy is seen. Bone window settings were reviewed which appear within normal limits for the patient's age. Impression: 1. Lateral left abdominal wall muscular hematoma with measurements as noted above. 2. Nonobstructing stone within the right kidney. 3. No other acute abnormality is appreciated. Diagnostic code #3
== END 2020-10-23 11:50 | disposition home or self-care (01) ==
LOC: JD.ED 09:38
DX: S30.1XXA Contusion of abdominal wall, initial encounter (principal); E78.00 Pure hypercholesterolemia, unspecified; I11.9 Hypertensive heart disease without heart failure; J44.9 Chronic obstructive pulmonary disease, unspecified; E11.9 Type 2 diabetes mellitus without complications; K21.9 Gastro-esophageal reflux disease without esophagitis; Z72.0 Tobacco use; Z79.82 Long term (current) use of aspirin; Z79.02 Long term (current) use of antithrombotics/antiplatelets; Z88.0 Allergy status to penicillin; Z79.84 Long term (current) use of oral hypoglycemic drugs; Z90.49 Acquired absence of other specified parts of digestive tract; W22.8XXA Striking against or struck by other objects, initial encounter
CPT/HCPCS: 74176; 74176-26; 99283-25; 99284

== ENCOUNTER 2023-04-01 06:45 | Day surgery (SDC) | payer MEDICARE ==
[~2023-04-01 06:45] MED LIST changes: -Lactated Ringers 1,000 ML IV SCH; +Lidocaine 1% 8 ML ONE; -Lidocaine 1%/Sod Bicarbonate in NS 8.4% 1 ML Syringe IDERM PRN; +Midazolam 1 MG/ML 2 ML SDV ONE; +Propofol 200 MG/20 ML SDV ONE; -Sodium Chloride 0.9% 10 ML Syringe FLUSH PRN; +fentaNYL 250 MCG/5 ML SDV ONE
[2023-04-01 06:58] LABS: APPEARANCE,URINE CLEAR (Clear); BILIRUBIN,URINE NEGATIVE (Negative); COLOR,URINE YELLOW (Yellow); GLUCOSE,URINE NEGATIVE (Negative); KETONES,URINE NEGATIVE (Negative); LEUKOCYTE ESTERASE,URINE NEGATIVE (Negative); NITRITE,URINE NEGATIVE (Negative); OCCULT BLOOD,URINE NEGATIVE (Negative); PROTEIN,URINE NEGATIVE (Negative); UROBILINOGEN,URINE 0.2 (0.2-1.0)
[2023-04-01] MEDS ORDERED: Lidocaine 1% 30 ML SDV ONE (07:04)
[2023-04-01] MEDS ORDERED: Bupivacaine 0.25% 10 ML SDV ONE (07:04)
[2023-04-01] MEDS ORDERED: EPINEPHrine 1 MG/ML SDV ONE (07:04)
[2023-04-01 07:08] LABS: BASOPHILS ABSOLUTE AUTO 0.1 K/mm3 (0.0-0.2); BASOPHILS PERCENT AUTO 0.8 % (0.0-1.0); EOSINOPHILS ABSOLUTE AUTO 0.2 K/mm3 (0.0-0.4); EOSINOPHILS PERCENT AUTO 1.8 % (0.0-6.0); HEMATOCRIT 41.1 % (42.0-52.0); HEMOGLOBIN 14.1 gm/dl (14.0-18.0); IMMATURE GRAN ABSOLUTE AUTO 0.03 K/mm3 (0.00-0.05); IMMATURE GRAN PERCENT AUTO 0.3 % (0.0-0.4); LYMPHOCYTES ABSOLUTE AUTO 2.6 K/mm3 (1.0-4.8); LYMPHOCYTES PERCENT AUTO 27.3 % (24.0-44.0); MEAN CORPUSCULAR HEMOGLOBIN 30.9 pg (28.0-32.0); MEAN CORPUSCULAR HGB CONC 34.3 g/dl (32.0-36.0); MEAN CORPUSCULAR VOLUME 90.1 fl (83.0-99.0); MEAN PLATELET VOLUME 9.2 fl (9.4-12.4); MONOCYTES PERCENT AUTO 10.5 % (0.0-8.0); NEUTROPHILS ABSOLUTE AUTO 5.6 K/mm3 (1.8-7.7); NEUTROPHILS PERCENT AUTO 59.3 % (41.0-71.0); PLATELET COUNT,PLT 299 K/mm3 (150-400); RED BLOOD CELL COUNT 4.56 M/mm3 (4.52-5.90); WHITE BLOOD CELL COUNT,WBC 9.44 K/mm3 (3.9-11.3)
[2023-04-01] MEDS ORDERED: Lactated Ringers 1,000 ML IV SCH (07:30)
[2023-04-01 07:50] LABS: ANION GAP 11.5 (5-15); EST CRCL DRUG DOSING (CG) 84.18 mL/min; POTASSIUM,K 3.5 mEq/L (3.5-5.1)
[2023-04-01] MEDS ORDERED: dexmedeTOMIDine HCl 200 MCG/2 ML SDV ONE (07:52)
[2023-04-01] MEDS ORDERED: ceFAZolin 2 GM Vial ONE (08:42)
[2023-04-01] MEDS ORDERED: Metoclopramide 10 MG/2 ML SDV ONE (08:47)
[2023-04-01] MEDS ORDERED: Ondansetron 4 MG/2 ML SDV ONE (08:47)
[2023-04-01] MEDS ORDERED: Labetalol 100 MG/20 ML MDV ONE (08:55)
[2023-04-01] MEDS ORDERED: fentaNYL 100 MCG/2 ML SDV IVPUSH PRN (10:00)
[2023-04-01] MEDS ORDERED: HYDROmorphone 0.5 MG/0.5 ML Syringe IVPUSH PRN (10:00)
[2023-04-01] MEDS ORDERED: Lactated Ringers 1,000 ML ONE ×2 (10:39)
[2023-04-01] MEDS ORDERED: HYDROmorphone 0.5 MG/0.5 ML Syringe ONE (11:05)
[2023-04-01] MEDS ORDERED: Acetaminophen/HYDROcodone 325-5 MG Tab PO SCH (12:48)
[2023-04-01 13:15] VITALS: BP 135/105
[2023-04-01 13:16] VITALS: PULSE 81
== END 2023-04-01 13:33 | disposition home or self-care (01) ==
LOC: JD.SDS 06:45
PROVIDERS: ATTEND Student in an Organized Health Care Education/Training Program
DX: K40.90 Unilateral inguinal hernia, without obstruction or gangrene, not specified as recurrent (principal); K21.9 Gastro-esophageal reflux disease without esophagitis; G43.909 Migraine, unspecified, not intractable, without status migrainosus; I10 Essential (primary) hypertension; Z79.899 Other long term (current) drug therapy; Z98.890 Other specified postprocedural states; Z88.0 Allergy status to penicillin
CPT/HCPCS: 36415; 49505; 80048; 81003; 85025; 87641; A9270; C1781; J0171; J0690; J1170; J2250; J2405; J2704; J2765; J3010; J3490; J7120; 00830; J1921